=== PATIENT | female | born 1995 | race Caucasian/White ===

== ENCOUNTER → 2018-05-31 16:12 | Outpatient (CLI) | payer BC, SELFPAY ==
[2018-05-31 19:57] LABS: Chlamydia Trachomatis by PCR Negative (Negative); Neisserai gonorrhoeae by PCR Negative (Negative); Probe Check PASS; Sample Adequacy Control PASS; Specimen Processing Control PASS
== END ==
PROVIDERS: Visit Provider Obstetrics & Gynecology
DX: Z12.4 Encounter for screening for malignant neoplasm of cervix (principal); Z11.3 Encounter for screening for infections with a predominantly sexual mode of transmission
CPT/HCPCS: 87491; 87591; 88175; G0145

== ENCOUNTER → 2018-06-21 16:01 | Outpatient (CLI) | payer BC, SELFPAY ==
[2018-06-21 16:56] LABS: Color, Urine Yellow (Yellow); Glucose, Dipstick Normal (Normal); Ketone-Dipstick 5 mg/dl (Negative); Leukocyte Esterase-Dipstick Negative /ul (Negative); Nitrite-Dipstick Negative (Negative); Occult Blood-Urine Negative /ul (Negative); Protein-Dipstick Negative (Negative); Urine Bilirubin Dipstick Negative (Negative); Urine Clarity Clear (Clear); Urine Urobilinogen Normal (Normal)
[2018-06-21 17:07] LABS: Absolute Lymphocyte Count 2.09 X10^3/ul (0.83-4.51); Absolute Neutrophil Count 3.9 X10^3/uL (2.0-7.7); Basophil# 0.01 X10^3/uL; Basophil% 0.1 % (0-1); Eosinophil# 0.15 X10^3/uL; Eosinophils% 2.1 % (0-5); Hematocrit 40.2 % (37-47); Lymphocyte # 2.09 X10^3/ul (4.0); Lymphocyte % 29.9 % (19-41); Mean Corp Hgb Conc 32.3 g/gl (32-36); Mean Corpuscular Hgb 28.6 pg (27.0-32.0); Mean Corpuscular Volume 88.4 fL (81-99); Mean Platelet Vol. 10.3 fl (6.2-12.0); Monocyte# 0.78 X10^3/uL; Monocyte% 11.2 % (0-10); Neutrophil # 3.94 X10^3/uL (2.7-7.7); Neutrophil % 56.6 % (47-70); Platelet Count 341 K/mm3 (150-450); RBC Distribution Width CV 13.7 % (11.6-14.6); Red Blood Count 4.55 M/mm3 (4.2-5.4)
[2018-06-21 17:09] LABS: POSITIVE COUNT NO; POSITIVE DIFFERENTIAL NO; POSITIVE MORPHOLOGY NO
[2018-06-21 17:33] LABS: Amphetamine Urine VISTA NEGATIVE (<1000 ng/mL); Barbiturate Urine VISTA NEGATIVE (< 200 ng/mL); Benzodiazepine Urine VISTA NEGATIVE (< 200 ng/mL); Cocaine Urine VISTA NEGATIVE (< 300 ng/mL); Ecstacy Urine VISTA NEGATIVE (< 500 ng/mL); Methadone Urine VISTA NEGATIVE (< 300 ng/mL); PCP Urine VISTA NEGATIVE (< 25 ng/mL); THC Urine VISTA NEGATIVE (< 50 ng/mL); Thyroid Stim Hormone (TSH) 1.31 uIU/mL (0.358-3.74); Vista UDS pH Range 7
[2018-06-21 17:44] LABS: COTININE Drug Screen Negative (<200 ng/mL)
[2018-06-21 18:11] LABS: HIV - WCH Non-Reactive (Nonreactive); Rubella IgG 79.3 IU/mL
[2018-06-23 11:30] LABS: HEPATITIS B SURFACE AG Negative (Negative); Hep C Antibodies 0.1 s/co ratio (0.0-0.9)
[2018-06-25 03:58] LABS: Prenatal RPR NONREACTIVE (NONREACTIVE)
== END ==
PROVIDERS: Visit Provider Obstetrics & Gynecology
DX: Z34.81 Encounter for supervision of other normal pregnancy, first trimester (principal)
CPT/HCPCS: 36415; 80307; 81002; 84443; 85025; 86703; 86762; 86803; 87340

== ENCOUNTER 2018-07-31 17:00 | Emergency (ER) | payer BC, SELFPAY ==
[2018-07-31 17:02] VITALS: BP 144/93; PULSE 97; RESP 20; TEMP 36.6; O2SAT 99; BMI 45.3
[2018-07-31] MEDS: Ondansetron 4 MG/2 ML Vial IV (18:29)
[2018-07-31] MEDS: 0.9% Normal Saline 1,000 ML 1000 ML IV (18:29)
[2018-07-31 18:39] LABS: Absolute Lymphocyte Count 2.34 X10^3/ul (0.83-4.51); Absolute Neutrophil Count 7.6 X10^3/uL (2.0-7.7); Basophil# 0.01 X10^3/uL; Basophil% 0.1 % (0-1); Eosinophil# 0.28 X10^3/uL; Eosinophils% 2.5 % (0-5); Hematocrit 36.7 % (37-47); Hemoglobin 12.4 g/dl (12.0-15.0); Lymphocyte # 2.34 X10^3/ul (4.0); Lymphocyte % 20.7 % (19-41); Mean Corp Hgb Conc 33.8 g/gl (32-36); Mean Corpuscular Hgb 29.3 pg (27.0-32.0); Mean Corpuscular Volume 86.8 fL (81-99); Mean Platelet Vol. 9.8 fl (6.2-12.0); Monocyte# 1.08 X10^3/uL; Monocyte% 9.6 % (0-10); Neutrophil # 7.57 X10^3/uL (2.7-7.7); Neutrophil % 66.9 % (47-70); POSITIVE COUNT NO; POSITIVE DIFFERENTIAL NO; POSITIVE MORPHOLOGY NO; Platelet Count 289 K/mm3 (150-450); RBC Distribution Width CV 13.4 % (11.6-14.6); RBC Distribution Width SD 42.5 fl (35.1-43.9); Red Blood Count 4.23 M/mm3 (4.2-5.4); White Blood Count 11.3 K/mm3 (4.4-11.0)
[2018-07-31 19:01] LABS: Mucous, Urine 0 SEEN /hpf (<or=2+)
[2018-07-31 19:03] LABS: Anion Gap 10 (5-15); BUN 3 mg/dL (7-18); BUN/Creat Ratio 8.8 RATIO (10-20); Calcium,Total 8.7 mg/dL (8.5-10.1); Chloride 106 mmol/L (98-107); Creatinine, Serum 0.34 mg/dL (0.55-1.02); EST Glomerular Filtration Rate 250 mL/min (>60); Est Glom Filt Rate - Afr Amer 303 mL/min (>60); Estimated Creatinine Clearance 240.91 ml/min; Glucose 75 mg/dL (74-106); Lactic Acid 0.9 mmol/L (0.4-2.0); Potassium 4.2 mmol/L (3.5-5.1); Sodium Level 136 mmol/L (136-145)
[2018-07-31 19:07] LABS: Color, Urine Yellow (Yellow); Glucose, Dipstick Normal (Normal); Leukocyte Esterase-Dipstick 25 /ul (Negative); Nitrite-Dipstick Negative (Negative); Occult Blood-Urine 25 /ul (Negative); Protein-Dipstick Negative (Negative); Urine Bilirubin Dipstick Negative (Negative); Urine Clarity Clear (Clear); Urine Urobilinogen Normal (Normal)
[2018-07-31 19:09] LABS: Ketone-Dipstick 150 mg/dl (Negative)
--- NOTE | 2018-07-31 19:10 | RAD_ITS ---
STUDY: X-RAY CHEST REASON FOR EXAM: Female, 22 years old. Shortness of breath, cough, fever. Patient 3 months , waist shielding was utilized TECHNIQUE: Frontal and lateral views of the chest. COMPARISON: None. FINDINGS: The lungs are clear and expanded. There is no demonstrated pleural abnormality. Normal size heart. Normal mediastinum and keyanna. Normal visualized pulmonary arteries. Normal visualized aortic arch and descending thoracic aorta. Normal visualized thoracic spine. Normal visualized ribs, clavicles, and shoulders. There is no demonstrated abnormality of the visualized soft tissue structures of the upper abdomen. RAD/Chest PA and Lateral IMPRESSION: Normal x-ray examination of the chest. Electronically Signed: Colin Mittal MD at 19:29 EDT , Service support ,
[2018-07-31 19:12] LABS: Bacteria 1+ /hpf (None Seen); Red Blood Cells-Urine 0-5 SEEN /hpf (0-5); Squamous Epithelial Cells - UA 5-10 SEEN /hpf (5-10); White Blood Cells 0-5 SEEN /hpf (0-5)
[2018-07-31 19:44] VITALS: BP 145/83; PULSE 93; RESP 17; O2SAT 100
--- NOTE | 2018-07-31 19:44 | ED.VISSUMM ---
- ER Visit Summary Date of Service: 07/31/18 Chief Complaint: Cough History of Present Illness: The patient is a [address] Day and Dr. Chapman. She is a at 13 weeks 5 days of . She reports she has a cough began 3 days ago. States is been productive yellow sputum without blood. She has nasal congestion and drainage that she reports is bloody. She states that she has right ear pain off and on that is 2 out of 10 in severity. She reports that she has shortness of breath that is moderate in severity. She reports she is been using her inhaler and nebulizer with transient relief. States that she has been nausea and vomited 6 times today. No blood or emesis. She does complain of dysuria that began today. She states that she has a headache that is 5 out of 10 severity. She complains of generalized weakness. States she had a hot fever of 102 degrees and chills at home. Patient denies any vaginal bleeding or discharge. Physical Examination: Vitals: Stable. Afebrile. General: Well-nourished and well-developed. Head: Normocephalic atraumatic. HEENT: Serous effusion on right. No evidence of otitis media. She has nasal congestion and drainage. Neck: Supple, no lymphadenopathy. No JVD. Nontender. Cardiovascular: Regular rate and rhythm. No murmurs. Respiratory: No respiratory distress. Clear to auscultation bilaterally. Abdominal: Soft, nontender, nondistended, normal bowel sounds. No guarding, rebound, or peritoneal signs. Gravid uterus. Back: Nontender. Extremities: Nontender, no edema. Skin: Normal color, no rash. Neurologic: Alert and oriented ?3. Cranial nerves II through XII are intact. Normal strength and sensation. Psych: Normal affect. Test Results: Chest x-ray is normal. CBC is more for white count 11.3 hematocrit 36.7. Chem-7 is more for CO2 of 20 and creatinine 0.34. UA shows 5-10 epithelial cells, but 1+ bacteria. Influenza is negative. Chest x-ray is normal. Lactic acid is 0.9. Emergency Department Course and Treatment: Patient was given a liter of normal saline. She was given Zofran IV. She is resting comfortably. We were unable to obtain heart tones. However, she reports that Dr. Chapman was not able to do this in the office either. Treatment Plan: Patient was discussed with Dr. Debra Pringle. She will be discharged on Keflex for her urine and a culture was sent. Rather than have systemic steroid she asked that she be placed on a steroid inhaler. Follow-up with her primary care physician in Dr. Chapman this week for further evaluation. Return to the emergency department for any worsening symptoms. Disposition: To home in improved and stable condition. Impression: 1. URI. 2. Bacteriuria. 3. Second trimester . This note was generated with [employer] software. It may contain incorrect words, spelling, and punctuation that were not noted in review of the chart prior to signing ED Disposition - Plan for ED Patient: Disposition: Home or Assisted Living Chief Complaint: Shortness of Breath Instructions: ED Bronchitis Asthmatic Prescriptions: Ondansetron [Zofran Odt] 4 mg PO Q8H PRN PRN #10 tab PRN Reason: Nausea Cephalexin [Keflex] 500 mg PO Q12 #14 capsule Budesonide Inhaler 180 mcg [Pulmicort Inhaler 180 mcg] 1 puff INHALATION BID #1 inhaler Referrals: Marya Day MD [Primary Care Provider] - 3-5 Days if not improving Miguelangel Chapman MD [STAFF PHYSICIAN] - Keep Chari appointment
[2018-07-31] MEDS: Cephalexin 500 MG Capsule PO (19:56)
--- NOTE | 2018-07-31 20:00 | ED.RN ---
IV DC'ED, CATHETER INTACT, SMALL GAUZE DRESSING PLACED. DISCHARGE INSTRUCTIONS GIVEN TO AND REVIEWED WITH PATIENT, PATIENT DENIES QUESTIONS OR CONCERNS AND VOICES UNDERSTANDING OF DISCHARGE INSTRUCTIONS. PT AMBULATES OUT OF ROOM WITHOUT DIFFICULTY.
--- NOTE | 2018-08-03 10:59 | CM.ED ---
ED CALLBACK: Follow-up call placed to patient with no answer. Voicemail states mailbox is full and cannot accept messages. Will reattempt as time allows.
== END 2018-07-31 20:01 | disposition home or self-care (01) ==
PROVIDERS: Emergency Provider Emergency Medicine; PCP Internal Medicine
DX: O99.511 Diseases of the respiratory system complicating pregnancy, first trimester (principal); J06.9 Acute upper respiratory infection, unspecified; O23.41 Unspecified infection of urinary tract in pregnancy, first trimester; B96.89 Other specified bacterial agents as the cause of diseases classified elsewhere; O10.911 Unspecified pre-existing hypertension complicating pregnancy, first trimester; Z3A.13 13 weeks gestation of pregnancy; Z87.891 Personal history of nicotine dependence
CPT/HCPCS: 71046; 80048; 81001; 83605; 85025; 87086; 87088; 87804; 96361; 96374; 99285; J7030; A4216; J2405

== ENCOUNTER 2018-09-20 12:29 | Outpatient (CLI) | payer BC, SELFPAY ==
[2018-09-20 12:55] VITALS: BMI 46.0
--- NOTE | 2018-10-01 07:40 | OB.TRI.NOTE ---
History of Present Illness Reason For Visit: OBSERVE AFTER A FALL Date of Service: 09/20/18 Final SUNITHA: 01/31/19 Final SUNITHA Source: US <20 weeks Gestational age: 21 Weeks and 0 Days History of Present Illness: 21-week intrauterine presents after falling on her buttocks. Denies any bleeding. Good movement noted. Maternal blood type is Rh+. Allergies metronidazole [From Flagyl] Allergy (Verified 07/31/18 17:02) Rash NST - FHR Rate Baby A NST Reactive:: Appropriate for gestational age Uterine Activity:: No contractions noted. Impression/Plan 21+ week intrauterine with fall. Good heart tones noted. Recommended Tylenol for discomfort at home. Routine follow-up recommended.
== END 2018-09-20 14:20 | disposition home or self-care (01) ==
LOC: WPOUT 12:30 → WP 12:31
PROVIDERS: Family Provider Internal Medicine; PCP Internal Medicine; Referring Provider Obstetrics & Gynecology; Visit Provider Obstetrics & Gynecology
DX: Z34.92 Encounter for supervision of normal pregnancy, unspecified, second trimester (principal)
CPT/HCPCS: 59025; 59050; 99218; G0378

== ENCOUNTER → 2018-09-27 18:47 | Outpatient (CLI) | payer BC, SELFPAY ==
[2018-09-20 12:55] VITALS: BMI 46.0
--- OUTSIDE RECORDS SUMMARY | 2018-11-09 16:52 | XMS RPT_ITS ---
:1995 Author Organization [place] Support Name Relationship Address Phone RONNA LEONE Unavailable [address] + [place] [address] COLTON, JUAN Unavailable [address] + [place] [address] S Unavailable Unavailable Unavailable RONNA LEONE Unavailable [address] + [place] [address] COLTON, JUAN Unavailable [address] + [place] [address] S Unavailable Unavailable Unavailable RONNA LEONE Unavailable [address] + [place], [place] [phone] RONNA LEONE Unavailable [address] Unavailable [place], [place] [phone] NOT GIVEN Unavailable Unavailable Unavailable RONNA LEONE Unavailable [address] + [place], [place] [phone] RONNA LEONE Unavailable [address] Unavailable [place], [place] [phone] NOT GIVEN Unavailable Unavailable Unavailable RONNA LEONE Unavailable [address] + [place] [address] COLTON, JUAN Unavailable [address] + [place] [address] S Unavailable Unavailable Unavailable RONNA LEONE Unavailable [address] + [place], [place] [phone] RONNA LEONE Unavailable [address] Unavailable [place], [place] [phone] NOT GIVEN Unavailable Unavailable Unavailable RONNA LEONE Unavailable [address] + [place] [address] COLTON, JUAN Unavailable [address] + [place] [address] S Unavailable Unavailable Unavailable RONNA LEONE Unavailable [address] + [place] [address] JUAN SEGURA Unavailable [address] + [place] [address] S Unavailable Unavailable Unavailable RONNA LEONE Unavailable [address] + [place], [place] [phone] RONNA LEONE Unavailable [address] Unavailable [place], [place] [phone] NOT GIVEN Unavailable Unavailable Unavailable RONNA LEONE Unavailable [address] + [place], [place] [phone] RONNA LEONE Unavailable [address] Unavailable [place] [phone] NOT GIVEN Unavailable Unavailable Unavailable RONNA LEONE Unavailable [address] + [place], [place] [phone] RONNA LEONE Unavailable [address] Unavailable [place], [place] [phone] NOT GIVEN Unavailable Unavailable Unavailable RONNA LEONE Unavailable [address] + [place], [place] [phone] RONNA LEONE Unavailable [address] Unavailable [place], [place] [phone] NOT GIVEN Unavailable Unavailable Unavailable RONNA LEONE Unavailable [address] + [place], [place] [phone] RONNA LEONE Unavailable [address] Unavailable [place] [phone] NOT GIVEN Unavailable Unavailable Unavailable RONNA LEONE Unavailable [address] + [place], [place] [phone] RONNA LEONE Unavailable [address] Unavailable [place] [phone] NOT GIVEN Unavailable Unavailable Unavailable RONNA LEONE Unavailable [address] + [place], [place] [phone] RONNA LEONE Unavailable [address] Unavailable [place] [phone] NOT GIVEN Unavailable Unavailable Unavailable RONNA LEONE Unavailable [address] + [place], [place] [phone] RONNA LEONE Unavailable [address] Unavailable [place] [phone] NOT GIVEN Unavailable Unavailable Unavailable LEONE, RONNA Unavailable [address] + [place], [place] [phone] EDER LEONEREY Unavailable [address] Unavailable [place], [place] [phone] NOT GIVEN Unavailable Unavailable Unavailable NOT GIVEN Unavailable Unavailable Unavailable SULEMA RONNA Unavailable [address] + [place], [place] [phone] SULEMA RONNA Unavailable [address] Unavailable [place], [place] [phone] NOT GIVEN Unavailable Unavailable Unavailable LEONE, RONNA Unavailable [address] + [place], [place] [phone] LEONE, RONNA Unavailable [address] Unavailable [place], [place] [phone] NOT GIVEN Unavailable Unavailable Unavailable Care Team Providers Name Role Phone ASHLEY HOPKINS (CHARLEEN) Attending Unavailable VIJAYA DAY Attending Unavailable VIJAYA DAY Referring Unavailable PALLAVI RUCKERPA) Attending Unavailable KIERA DAYA Hector Referring Unavailable KIERA DAYA Hector Attending Unavailable WEEMAN KATHERINE Admitting Unavailable WEEMANSASCHA M Attending Unavailable WEEMAN, KATHERINE Primary Care Unavailable WEEMAN, KATHERINE Consulting Unavailable PROVIDER, UNKNOWN Consulting Unavailable PROVIDER, UNKNOWN Consulting Unavailable PROVIDER, UNKNOWN Consulting Unavailable WEEMAN, KATHERINE Admitting Unavailable WEEMAN, KATHERINE Attending Unavailable WEEMAN, KATHERINE Primary Care Unavailable MYRTLE, ROD Consulting Unavailable PROVIDER, UNKNOWN Consulting Unavailable LAURIE ALEXIS Admitting Unavailable LAURIE ALEXIS Attending Unavailable LAURIE ALEXIS Primary Care Unavailable MYRTLE, ROD Consulting Unavailable PROVIDER, UNKNOWN Consulting Unavailable WEEMAN, KATHERINE Admitting Unavailable WEEMAN KATHERINE Attending Unavailable WEEMAN, KATHERINE Primary Care Unavailable MYRTLE, ROD Consulting Unavailable PROVIDER, UNKNOWN Consulting Unavailable WEEMAN, KATHERINE Admitting Unavailable WEEMAN, KATHERINE Attending Unavailable WEEMAN, KATHERINE Primary Care Unavailable MYRTLE, ROD Consulting Unavailable PROVIDER, UNKNOWN Consulting Unavailable ELVA BLAKE Admitting Unavailable ELVA BLAKE Attending Unavailable ELVA BLAKE Primary Care Unavailable MYRTLE, ROD Consulting Unavailable PROVIDER, UNKNOWN Consulting Unavailable WEEMAN, KATHERINE Admitting Unavailable WEEMAN, KATHERINE Attending Unavailable WEEMAN, KATHERINE Primary Care Unavailable MYRTLE, ROD Consulting Unavailable PROVIDER, UNKNOWN Consulting Unavailable TREASURE AIKEN Admitting Unavailable TREASURE AIKEN Attending Unavailable TREASURE AIKEN Primary Care Unavailable MYRTLE, ROD Consulting Unavailable PROVIDER, UNKNOWN Consulting Unavailable TREASURE AIKEN Admitting Unavailable TREASURE AIKEN Attending Unavailable TREASURE AIKEN Primary Care Unavailable MYRTLE, ROD Consulting Unavailable PROVIDER, UNKNOWN Consulting Unavailable TALAMPAS, VIJAYA Consulting Unavailable RUCKER, CLARITA Primary Care Unavailable RUCKER, CLARITA Attending Unavailable RUCKER, CLARITA Admitting Unavailable PROVIDER, UNKNOWN Consulting Unavailable WEEMAN, KATHERINE Admitting Unavailable WEEMANSASCHA Attending Unavailable WEEMAN, KATHERINE Primary Care Unavailable TALAMPAS, VIJAYA Consulting Unavailable PROVIDER, UNKNOWN Consulting Unavailable TALAMPAS, VIJAYA Referring Unavailable ARASH, SASCHA F Primary Care Unavailable ARASH, SASCHA F Attending Unavailable ARASH, SASCHA F Admitting Unavailable TALAMPAS, VIJAYA Consulting Unavailable PROVIDER, UNKNOWN Consulting Unavailable SRINI, DR ABHILASH Dee Admitting Unavailable SRINI, DR ABHILASH Dee Attending Unavailable TALAMPAS, VIJAYA Referring Unavailable SRINI, DR ABHILASH Dee Primary Care Unavailable TALAMPAS, VIJAYA Consulting Unavailable PROVIDER, UNKNOWN Consulting Unavailable FELICIA, DR RUBIO Yee Admitting Unavailable DUARTE, DR RUBIO Yee Attending Unavailable FELICIA, DR RUBIO Yee Primary Care Unavailable TALAMPAS, VIJAYA Consulting Unavailable PROVIDER, UNKNOWN Consulting Unavailable UPTAIN, CRYSTAL CNM Admitting Unavailable UPTAIN, CRYSTAL CNM Attending Unavailable UPTAIN, CRYSTAL CNM Primary Care Unavailable TALAMPAS, VIJAYA Consulting Unavailable PROVIDER, UNKNOWN Consulting Unavailable Sascha Velasquez Attending Unavailable Sascha Velasquez Referring Unavailable Sascha Velasquez Attending Unavailable Wilmar Ferro Attending Unavailable Sascha Velasquez Attending Unavailable Ron, Sascha Referring Unavailable Talampas, Vijaya Primary Care Unavailable Sascha Velasquez Attending Unavailable Talampas, Vijaya Primary Care Unavailable Sascha Velasquez Referring Unavailable PROBLEMS PROBLEMS DATE TYPE CONDITION / CODE ATTENDING STATUS SOURCE 09/28/2018 Unknown N39.0 - Urinary Sascha Velasquez Active [facility] tract infection, Community site not Hospital specified / Repository N39.0(ICD-10) 06/21/2018 Unknown Z34.81 - Sascha Velasquez Active [facility] Encounter for Community supervision of Hospital other normal Repository , first trimester / Z34.81(ICD-10) 06/03/2018 Unknown Z12.4 - Encounter Sascha Velasquez Active [facility] for screening for Community malignant Hospital neoplasm of Repository cervix / Z12.4(ICD-10) 12/25/2017 Active Unknown / TALAMPAS, [facility]AYA [facility] [place] [facility] 12/17/2017 Principle Other microscopic REUBEN, Active Srinivas Beltran Diagnosis hematuria / LAURIE PA [facility] R3129(ICD-10) Hospital Repository 11/26/2017 Admitting Irregular SASCHA VELASQUEZ Active Srinivas Beltran Diagnosis menstruation, [facility] unspecified / Hospital N926(ICD-10) Repository 11/26/2017 Principle Irregular SASCHA VELASQUEZ Active Srinivas Beltran Diagnosis menstruation, [facility] unspecified / Hospital N926(ICD-10) Repository PROCEDURES PROCEDURES No Procedure Records FoundRESULTS RESULTS EMERGENCY REPORT Observed: 08/08/2018 Status: F Source: SRINIVAS BELTRAN 9:36 AM [facility] EMERGENCY ROOM REPORT NAME ACCOUNT SEX AGE ADMIT DISCHARGE PT MED. RECORD# NUMBER DATE DATE TYPE SULEMA [id number] F 22 08/08/18 08/08/18 3 LUIS Moeller [id number] ROOM: ER DATE OF : 1995 DICTATING PHYSICIAN: Rubio Duarte CHIEF COMPLAINT: Constipation. HISTORY OF PRESENT ILLNESS: The patient states that she was recently treated for UTI with Keflex. She has missed a couple of doses, but basically has two more pills to take. She is doing generally well with that. She states that she has not had a bowel movement since Last Thursday. When asked if that was 3 days ago, or a week and a half, she states that it was a week and a half. She is not having any nausea or vomiting. She states she feels like she has to go but cannot. No appreciable abdominal pain. She is 15 weeks . She has had previous episodes of constipation and states that she has some powder at home to take for it, but was unsure whether she could take that as she does not know what it is. PAST MEDICAL HISTORY: Significant for hypertension. MEDICATIONS: Per med rec list. ALLERGIES: Flagyl. PAST SURGICAL HISTORY: No previous surgeries. SOCIAL HISTORY: She lives at home with significant other. She does work. She does not smoke or drink alcohol. PHYSICAL EXAMINATION: This is a 22-year-old heavy built, obese female who does not appear toxic or in any acute distress. Her skin is pink, warm and dry. VITAL SIGNS: All normal as noted in the chart. Abdomen is obese but soft. She has active bowel sound. No guarding or rebound. No masses. I did a rectal exam and external exam was unremarkable. I was unable to feel any stool in the rectum. Good peripheral pulses. Good capillary refill. EMERGENCY DEPARTMENT COURSE AND TREATMENT: The patient presents with history of not having a bowel movement for some time. No evidence of any obstructive findings or other emergent findings. I told her that she is okay to take the laxative powder that she has at home. I recommended a Dulcolax suppository to take as well, and milk of magnesia as needed. Follow up with her family doctor in 1 to 2 days if not better. Return if symptoms worsen. Page 1 of 2 LUIS LEONE Emergency Room Report DIAGNOSIS: Constipation. Dictated By: Rubio Duarte MD 08/08/18 10:07 JOB #: [id number] Transcribed By: toi 08/08/18 11:25 Electronically signed by: BRUCE Duarte M.D. 08/11/18 07:38 Page 2 of 2 LUIS LEONE Emergency Room Report EMERGENCY DEPARTMENT Observed: 08/01/2018 Status: F Source: [place] SUMMARY 1:[address] [facility] REPOSITORY [facility] Medical Records Department [address] [place] [address] Emergency Department Summary 07/31/18 1944 MR#: [id number] Acct: [id number] Name: LUIS LEONE Rep #: [id number] : 1995 22 From: Wilmar Ferro MD PCP: Vijaya Day MD Status: DEP ER - ER Visit Summary Date of Service: 07/31/18 Chief Complaint: Cough History of Present Illness: The patient is a [address] Day and Dr. Velasquez. She is a at 13 weeks 5 days of . She reports she has a cough began 3 days ago. States is been productive yellow sputum without blood. She has nasal congestion and drainage that she reports is bloody. She states that she has right ear pain off and on that is 2 out of 10 in severity. She reports that she has shortness of breath that is moderate in severity. She reports she is been using her inhaler and nebulizer with transient relief. States that she has been nausea and vomited 6 times today. No blood or emesis. She does complain of dysuria that began today. She states that she has a headache that is 5 out of 10 severity. She complains of generalized weakness. States she had a hot fever of 102 degrees and chills at home. Patient denies any vaginal bleeding or discharge. Physical Examination: Vitals: Stable. Afebrile. General: Well-nourished and well-developed. Head: Normocephalic atraumatic. HEENT: Serous effusion on right. No evidence of otitis media. She has nasal congestion and drainage. Neck: Supple, no lymphadenopathy. No JVD. Nontender. Cardiovascular: Regular rate and rhythm. No murmurs. Respiratory: No respiratory distress. Clear to auscultation bilaterally. Abdominal: Soft, nontender, nondistended, normal bowel sounds. No guarding, rebound, or peritoneal signs. Gravid uterus. Back: Nontender. Extremities: Nontender, no edema. Skin: Normal color, no rash. Neurologic: Alert and oriented 3. Cranial nerves II through XII are intact. Normal strength and sensation. Psych: Normal affect. Test Results: Chest x-ray is normal. CBC is more for white count 11.3 hematocrit 36.7. Chem-7 is more for CO2 of 20 and creatinine 0.34. UA shows 5-10 epithelial cells, but 1+ bacteria. Influenza is negative. Chest x-ray is normal. Lactic acid is 0.9. Emergency Department Course and Treatment: Patient was given a liter of normal saline. She was given Zofran IV. She is resting comfortably. We were unable to obtain heart tones. However, she reports that Dr. Velasquez was not able to do this in the office either. Treatment Plan: Patient was discussed with Dr. Debra Pringle. She will be discharged on Keflex for her urine and a culture was sent. Rather than have systemic steroid she asked that she be placed on a steroid inhaler. Follow-up with her primary care physician in Dr. Velasquez this week for further evaluation. Return to the emergency department for any worsening symptoms. Disposition: To home in improved and stable condition. Impression: 1. URI. 2. Bacteriuria. 3. Second trimester . This note was generated with [employer] software. It may contain incorrect words, spelling, and punctuation that were not noted in review of the chart prior to signing ED Disposition - Plan for ED Patient: Disposition: Home or Assisted Living Chief Complaint: Shortness of Breath Instructions: ED Bronchitis Asthmatic Prescriptions: Ondansetron [Zofran Odt] 4 mg PO Q8H PRN PRN #10 tab PRN Reason: Nausea Cephalexin [Keflex] 500 mg PO Q12 #14 capsule Budesonide Inhaler 180 mcg [Pulmicort Inhaler 180 mcg] 1 puff INHALATION BID #1 inhaler Referrals: Vijaya Day MD [Primary Care Provider] - 3-5 Days if not improving Sascha Velasquez MD [STAFF PHYSICIAN] - Keep Chari appointment What to do if you have Problems For any increased pain, shortness of breath, bleeding, nausea or vomiting, chest pain, or any unexpected problems, contact your Primary Care Provider. Call [facility] ([phone]) or report to the closest Emergency Room. Call 911 if necessary. 08/01/18 0157 <Electronically signed by Wilmar Ferro MD> Date Wilmar Ferro MD Cosigner Signature (If Indicated): Date CC: Vijaya Day MD URINALYSIS, COMPLETE Collected: 07/31/2018 Status: F Source: [place] 6:[address] [facility] REPOSITORY Order Comment: How was Urine Obtained? CLEAN CATCH TYPE CODE TESTS RESULT OUT OF RANGE REFERENCE UNITS LAB L400.3000 Yellow COLOR Normal Yellow LAB L400.3050 Clear Normal CLARITY Clear LAB L400.3200 Normal mg/dl Normal GLUCOSE, UR Normal LAB L400.3300 Negative mg/dL Normal BILIRUBIN URINE Negative LAB L400.3400 Negative mg/dl High KETONE UR 150 Result Comment: CRITICAL VALUE *H VERIFIED. CALLED TO GRISELDA 07/31/18 1908 Zaria Amaral. RESULTS READ BACK BY GRISELDA . LAB L400.3465 1.002-1.030 Normal SP.GR. DIPSTX 1.020 LAB L400.3550 5.0 - 8.0 pH Normal UR 6.0 LAB L400.3600 Negative mg/dl Normal PROT DIPSTX Negative LAB L400.3700 Normal mg/dl Normal UROBILI Normal LAB L400.3750 Negative Normal NITRITE UR Negative LAB L400.3780 Negative /ul High 25 OCCULT BLOOD-UR LAB L400.3800 Negative /ul High 25 LEUK ESTERASE LAB L400.4050 0-5 /hpf Normal WBC 0-5 SEEN LAB L400.4100 0-5 /hpf Normal RBC-UA 0-5 SEEN LAB L400.4150 5-10 /hpf Normal SQUAM EPI 5-10 SEEN LAB L400.4300 None Seen /hpf 1+ Normal BACTERIA LAB L400.4350 <or=2+ /hpf 0 Normal MUCUS, URINE SEEN Performed By: #### L400.0001 #### [facility] [address] [place], [place], [address] Observed: 07/31/2018 Status: F Source: [place] CULTURE, URINE 6:[address] [facility] REPOSITORY Order Date: 07/31/18 Urine Culture ORGANISM 1: Mixed Gram Positive Organisms [place] Count 25,000-50,000 MIX CULTURE Mixed contaminants. Submit a new specimen if indicated. Performed By: #### M100.0650 #### [facility] [address] [place], [address] CBC W/DIFF, AUTOMATED Collected: 07/31/2018 Status: F Source: [place] 6:[address] [facility] REPOSITORY TYPE CODE TESTS RESULT OUT OF RANGE REFERENCE UNITS LAB L100.1000 4.4-11.0 K/mm3 High WBC 11.3 LAB L100.1200 4.2-5.4 M/mm3 Normal RBC 4.23 LAB L100.1300 12.0-15.0 g/dl Normal HGB 12.4 LAB L100.1400 37-47 % Low HCT 36.7 LAB L100.1500 81-99 fL Normal MCV 86.8 LAB L100.1600 27.0-32.0 pg Normal MCH 29.3 LAB L100.1700 32-36 g/gl Normal MCHC 33.8 LAB L100.1810 11.6-14.6 % Normal RDW CV 13.4 LAB L100.1820 35.1-43.9 fl Normal RDW SD 42.5 LAB L100.1900 150-450 K/mm3 Normal PLT 289 LAB L100.2000 6.2-12.0 fl Normal MPV 9.8 LAB L100.2100 47-70 % Normal NEUT% 66.9 LAB L100.2200 19-41 % Normal LY% 20.7 LAB L100.2300 0-10 % Normal MONO% 9.6 LAB L100.2400 0-5 % Normal EO% 2.5 LAB L100.2500 0-1 % Normal BASO% 0.1 LAB L100.2550 0.0-0.9 % Normal IM GRAN % 0.200 Result Comment: IG% - Immature Granulocytes (promyelocytes, myelocytes and metamyelocytes) > 1% indicates that a LEFT SHIFT is Present. LAB L100.2620 2.0-7.7 X10 3/uL Normal Absolute Neut 7.6 LAB L100.2720 0.83-4.51 X10 3/ul Normal Absolute Lymph 2.34 Performed By: #### L100.0100 #### [facility] [address] [place], [address] BASIC METABOLIC Collected: 07/31/2018 Status: F Source: [place] PROFILE ([facility]) 6:[address] [facility] REPOSITORY TYPE CODE TESTS RESULT OUT OF RANGE REFERENCE UNITS LAB L501.0100 74-106 mg/dL Normal GLU 75 Result Comment: Please note revised GLUCOSE reference range effective 2017. LAB L501.1000 7-18 mg/dL Low BUN 3 LAB L501.1100 0.55-1.02 mg/dL Low CREAT,SERUM 0.34 Result Comment: The validity of the calculated GFR AND GFRAA in patients over 70 years has not been determined. Clinical correlation is essential. LAB L501.1110 >60 mL/min Normal EST GFR 250 Result Comment: Non- GFR Calc LAB L501.1115 >60 mL/min Normal EST GFR - AA 303 Result Comment: GFR Calc LAB L501.1255 ml/min Normal Estimated CRCL 240.91 LAB L501.1300 10-20 RATIO Low BUN/CRE 8.8 LAB L501.2200 8.5-10 mg/dL .1 CA Normal 8.7 LAB L501.5300 136-14 mmol/L 5 NA Normal 136 LAB L501.5600 3.5-5. mmol/L 1 K Normal 4.2 Result Comment: Moderate Hemolysis, Result may be falsely increased. LAB L501.5900 98-107 mmol/L Normal CL 106 LAB L501.6100 21.0-32.0 mmol/L Low CO2 20.0 LAB L501.6200 5-15 Normal GAP 10 Performed By: #### L500.2500 #### [facility] [address] [place], [address] LACTIC ACID Collected: 07/31/2018 Status: F Source: [place] 6:[address] [facility] REPOSITORY Order Comment: Yes/No query for Sepsis Lactate Rule Y TYPE CODE TESTS RESULT OUT OF RANGE REFERENCE UNITS LAB L503.6005 0.4-2.0 mmol/L Normal LACTIC ACID 0.9 Performed By: #### L503.6005 #### [facility] [address] [place], [address] Observed: 07/31/2018 Status: F Source: [place] INFLUENZA A+B (RAPID 5:[address] [facility]) REPOSITORY FLU A/B Rapid Negative test results should be confirmed by culture. Order Rapid Viral Culture for Influenzae A+B ([id number]) if clinically indicated. Influenza Ag, Direct Presumptive NEGATIVE for Influenza A/B Antigen (See Note) Performed By: #### M101.0101 #### [facility] [place], [address] CHEST PA AND LATERAL Observed: 07/31/2018 Status: F Source: [place] 5:[address] [facility] REPOSITORY [facility] Imaging Services [address] [place] [address] Chest PA and Lateral MR#: [id number] Acct: [id number] Name: LUIS LEONE Rep #: [id number] : 1995 F 22 From: Colin Mittal MD PCP: Vijaya Day MD Status: REG ER Study: Chest PA and Lateral Date of Exam: 07/31/18 Exam# [id number] Ordering Dr: Wilmar Ferro MD STUDY: X-RAY CHEST REASON FOR EXAM: Female, 22 years old. Shortness of breath, cough, fever. Patient 3 months , waist shielding was utilized TECHNIQUE: Frontal and lateral views of the chest. COMPARISON: None. FINDINGS: The lungs are clear and expanded. There is no demonstrated pleural abnormality. Normal size heart. Normal mediastinum and keyanna. Normal visualized pulmonary arteries. Normal visualized aortic arch and descending thoracic aorta. Normal visualized thoracic spine. Normal visualized ribs, clavicles, and shoulders. There is no demonstrated abnormality of the visualized soft tissue structures of the upper abdomen. RAD/Chest PA and Lateral IMPRESSION: Normal x-ray examination of the chest. Electronically Signed: Colin Mittal MD at 19:29 EDT , Service support , CC: Vijaya Day MD; Wilmar Ferro MD Precipitator: Signed GROUP A STREP BY Collected: 07/30/2018 Status: F Source: [facility] 11:52 PM [facility] REPOSITORY TYPE CODE TESTS RESULT OUT OF REFERENCE UNITS RANGE LAB GASSRC Throat Swab GAS Specimen Source LAB PCRGAS Negative for Group A Strep Group A PCR Streptococcus by PCR. Result Comment: This test was developed and its performance characteristics determined by [facility] [place] [facility] It has not been cleared or approved by the FDA. -[facility] is regulated under CLIA as qualified to perform high-complexity testing. This test is used for clinical purposes. It should not be regarded as inv estigational or for research. Performed By: #### GASPCR #### [facility] [address] [place], [place] [address] PROGRESS Observed: 07/30/2018 Status: COMPLETED Source: [place] 2:14 PM [facility] REPOSITORY O ID: [id number] Author: Ashley Hopkins Service: (none) Author Type: Nurse Practitioner Type: Progress Notes Filed: 07/30/2018 3:49 PM Note Text: This is a 22 year old female who presents today with: Patient presents with: Head Congestion: X 4 days HISTORY OF PRESENT ILLNESS: Luis Leone is a 22 year old female. Patient presents with: Head Congestion: X 4 days Pt presents today with complaint of URI symptoms. Started about 4 days ago. Refers that she is 3 months . -- refers she'll be 14 weeks on Thursday. Refers that she is using robitussin, cough drops, and a humidifier. Took some tylenol this morning -- refers temperature was 102. States she hasn't had a fever since. Refers that she also vomited twice. Refers that she ate lunch yesterday, and vomited that up. Refers that she ate supper last night, and vomited that up. Refers that she hasn't been able to eat anything today. Describes this vomiting as post-tussive in nature. Refers that she has been drinking water and hot tea to help open up the sinuses. PAST MEDICAL HISTORY: PAST MEDICAL HISTORY Diagnosis Date - Asthma - HTN (hypertension) - Hyperlipidemia - Kidney stones PAST SURGICAL HISTORY Procedure Laterality Date - PAST SURGICAL HISTORY OF kidney stones 2013 ALLERGIES Flagyl [Metronidazole Hcl] MEDICATIONS Current Outpatient Prescriptions: cetirizine (ZYRTEC) 10 mg tablet Take 1 tablet by mouth once daily. ipratropium (ATROVENT) 0.02 % nebulizer solution Use 2.5 mL via nebulizer four times daily as needed for Wheezing/Shortness of Breath. Use over 5-15minutes. beclomethasone (QVAR) 80 mcg/actuation inhaler Inhale 1 Puff as instructed twice daily. ranitidine (ZANTAC) 150 mg tablet Take 1 tablet by mouth twice daily. PROAIR HFA 90 mcg/actuation inhaler No current facility-administered medications for this visit. FAMILY HISTORY Problem Relation Age of Onset - other (htn) Mother - Hyperlipidemia Father - Heart Father - other (stents) Father - other (htn) Father - Diabetes Paternal Grandmother Social History Marital status: Spouse name: Years of education: Number of children: Social History Main Topics Smoking status: Former Smoker Packs/day: 0.00 Years: 4.00 Types: Cigarettes Quit date: 05/26/2018 Smokeless tobacco: Never Used Alcohol use: No Comment: socially Drug use: No EXAM: BP 126/80 (BP Site: Left Arm, BP Position: Sitting, BP Cuff Size: Large Adult) Pulse 103 Temp 36.3 ?C (97.4 ?F) (Left Tympanic) Resp 14 Wt 127.9 kg (282 lb) LMP 12/04/2017 SpO2 97% BMI 45.52 kg/m? PHYSICAL EXAM: General Appearance: Well appearing, alert, in no acute distress, well-hydrated, well nourished.. Skin: Skin color, texture, turgor normal, no suspicious rashes or lesions. Head: Normocephalic, no masses, lesions, tenderness or abnormalities. Eyes: Anicteric sclera. Pupils are equally round and reactive to light. Extraocular movements are intact. . Ears: External ears normal, canals clear, Normal TMs bilaterally. Nose/Sinuses: Nares normal, septum midline, mucosa normal, no drainage or sinus tenderness. Oropharynx: Lips, mucosa, and tongue normal, teeth and gums normal, oropharynx normal. Neck: Supple, no adenopathy Lungs: Lungs clear to auscultation. No wheezing, rhonchi, rales. Heart: RRR without murmur, gallop, or rubs. No ectopy. Neurologic: Gait normal. ASSESSMENT/PLAN: 1. URI, acute - ICD9: 465.9, ICD10: J06.9 (primary diagnosis) - Discussed viral etiology and rationale for treatment. - Symptomatic treatment with prn analgesia - Supportive care with fluids and rest - The patient may also use mucinex, sudafed, or robitussin -- handout given with safe medications in . 2. Acute pharyngitis, unspecified etiology - ICD9: 462, ICD10: J02.9 - suspect viral - Discussed supportive care treatment with fluids, rest and analgesia. - The patient may also use mucinex, sudafed, or robitussin -- handout given with safe medications in . - RAPID STREP TEST B/O - GROUP A STREPTOCOCCUS BY PCR Discussed treatment plan and patient voices understanding. Patient's questions answered appropriately. Medications and potential side effects were discussed and patient voices understanding. Return to the office as scheduled or as needed for worsening/no improvement. Ashley Hopkins APRN.CNP CNOV Observed: 07/30/2018 Status: COMPLETED Source: [place] 2:00 PM [facility] REPOSITORY Office Visit (FAMPWS) LUIS LEONE ([id number]) 1995 F Date Time Provider Department 07/30/18 2:00 PM ASHLEY HOPKINS (CHARLEEN) FAMPWS During your visit today, we recorded the following information about you: Temperature Pulse Respiration Blood pressure 97.4 degrees 103/minute 14/minute 126/80 Weight 127.9 kg Ashley Hopkins APRN.CNP 07/30/2018 3:49 PM Signed This is a 22 year old female who presents today with: Patient presents with: Head Congestion: X 4 days HISTORY OF PRESENT ILLNESS: Luis Moeller Leone is a 22 year old female. Patient presents with: Head Congestion: X 4 days Pt presents today with complaint of URI symptoms. Started about 4 days ago. Refers that she is 3 months . -- refers she'll be 14 weeks on Thursday. Refers that she is using robitussin, cough drops, and a humidifier. Took some tylenol this morning -- refers temperature was 102. States she hasn't had a fever since. Refers that she also vomited twice. Refers that she ate lunch yesterday, and vomited that up. Refers that she ate supper last night, and vomited that up. Refers that she hasn't been able to eat anything today. Describes this vomiting as post-tussive in nature. Refers that she has been drinking water and hot tea to help open up the sinuses. PAST MEDICAL HISTORY: PAST MEDICAL HISTORY Diagnosis Date - Asthma - HTN (hypertension) - Hyperlipidemia - Kidney stones PAST SURGICAL HISTORY Procedure Laterality Date - PAST SURGICAL HISTORY OF kidney stones 2013 ALLERGIES Flagyl [Metronidazole Hcl] MEDICATIONS Current Outpatient Prescriptions: cetirizine (ZYRTEC) 10 mg tablet Take 1 tablet by mouth once daily. ipratropium (ATROVENT) 0.02 % nebulizer solution Use 2.5 mL via nebulizer four times daily as needed for Wheezing/Shortness of Breath. Use over 5-15minutes. beclomethasone (QVAR) 80 mcg/actuation inhaler Inhale 1 Puff as instructed twice daily. ranitidine (ZANTAC) 150 mg tablet Take 1 tablet by mouth twice daily. PROAIR HFA 90 mcg/actuation inhaler No current facility-administered medications for this visit. FAMILY HISTORY Problem Relation Age of Onset - other (htn) Mother - Hyperlipidemia Father - Heart Father - other (stents) Father - other (htn) Father - Diabetes Paternal Grandmother Social History Marital status: Spouse name: Years of education: Number of children: Social History Main Topics Smoking status: Former Smoker Packs/day: 0.00 Years: 4.00 Types: Cigarettes Quit date: 05/26/2018 Smokeless tobacco: Never Used Alcohol use: No Comment: socially Drug use: No EXAM: BP 126/80 (BP Site: Left Arm, BP Position: Sitting, BP Cuff Size: Large Adult) Pulse 103 Temp 36.3 ?C (97.4 ?F) (Left Tympanic) Resp 14 Wt 127.9 kg (282 lb) LMP 12/04/2017 SpO2 97% BMI 45.52 kg/m? PHYSICAL EXAM: General Appearance: Well appearing, alert, in no acute distress, well-hydrated, well nourished.. Skin: Skin color, texture, turgor normal, no suspicious rashes or lesions. Head: Normocephalic, no masses, lesions, tenderness or abnormalities. Eyes: Anicteric sclera. Pupils are equally round and reactive to light. Extraocular movements are intact. . Ears: External ears normal, canals clear, Normal TMs bilaterally. Nose/Sinuses: Nares normal, septum midline, mucosa normal, no drainage or sinus tenderness. Oropharynx: Lips, mucosa, and tongue normal, teeth and gums normal, oropharynx normal. Neck: Supple, no adenopathy Lungs: Lungs clear to auscultation. No wheezing, rhonchi, rales. Heart: RRR without murmur, gallop, or rubs. No ectopy. Neurologic: Gait normal. ASSESSMENT/PLAN: 1. URI, acute - ICD9: 465.9, ICD10: J06.9 (primary diagnosis) - Discussed viral etiology and rationale for treatment. - Symptomatic treatment with prn analgesia - Supportive care with fluids and rest - The patient may also use mucinex, sudafed, or robitussin -- handout given with safe medications in . 2. Acute pharyngitis, unspecified etiology - ICD9: 462, ICD10: J02.9 - suspect viral - Discussed supportive care treatment with fluids, rest and analgesia. - The patient may also use mucinex, sudafed, or robitussin -- handout given with safe medications in . - RAPID STREP TEST B/O - GROUP A STREPTOCOCCUS BY PCR Discussed treatment plan and patient voices understanding. Patient's questions answered appropriately. Medications and potential side effects were discussed and patient voices understanding. Return to the office as scheduled or as needed for worsening/no improvement. Ashley Hopkins APRN.CHARLEEN Hopkins APRN.CNP 07/30/2018 2:44 PM Signed 1. Please see attached list of medication safe in . 2. Increase fluids. 3. Tylenol for aches/pains. (No ibuprofen). 4. Encourage flu shot. Referring Provider: SELF [200] Allergies As of Date: 07/30/2018 Noted Allergy Reaction FLAGYL (METRONIDAZOLE HCL) 12/25/2017 2 - Rash 9 - Itching Date Reviewed: 07/30/2018 Reviewed by: Taylor Hall Scientific Recruiter - Fully Assessed Reason for Visit: Head Congestion [234] Cmt: X 4 days Primary Visit Diagnosis:URI, acute [J06.9] Other Visit Diagnosis:Acute pharyngitis, unspecified etiology [J02.9] Order(s):RAPID STREP TEST B/O [[id number]] Order #: [id number] GROUP A STREPTOCOCCUS BY PCR [SQGASPCR] Order #: [id number] FUTURE Prescriptions as of 07/30/2018 Sig: IPRATROPIUM BROMIDE 0.02 % SO* Use 2.5 mL via nebulizer four* BECLOMETHASONE DIPROPIONATE 8* Inhale 1 Puff as instructed t* RANITIDINE 150 MG TABLET Take 1 tablet by mouth twice * PROAIR HFA 90 MCG/ACTUATION A* Problem List As Of Date 07/30/2018 Noted Resolved Dysuria [R30.0] INVALID FOR* Asthma [J45.909] HTN (hypertension) [I10] 06/22/2018 Hyperlipidemia [E78.5] Kidney stones [N20.0] Morbid obesity with BMI of 45.0-49.9, adult (HC*INVALID FOR* Other instructions from your clinician: 1. Please see attached list of medication safe in . 2. Increase fluids. 3. Tylenol for aches/pains. (No ibuprofen). 4. Encourage flu shot. Medications Discontinued During This Encounter cetirizine (ZYRTEC) 10 mg tablet 12/25/2017 07/30/2018 Class: Historical Med Route: ORAL Sig: Take 1 tablet by mouth once daily. Disc: Other Letter Text Ashley Hopkins CNP [address], [place] [address] 07/30/2018 TO WHOM IT MAY CONCERN: This is to confirm that Luis Leone had an appointment and was seen at the [facility] in the Department of Family Medicine by Ashley Hopkins CNPon 07/30/2018. Please excuse from work on 07/30/18 and 07/31/18 for medical reasons. She may return to work on 08/01/18. Sincerely yours, Ashley Hopkins CNP Encounter Status:Closed by ASHLEY HOPKINS CNP on 07/30/18 EMERGENCY REPORT Observed: 07/23/2018 Status: F Source: [facility] [place] 8:16 AM [facility] EMERGENCY ROOM REPORT NAME ACCOUNT SEX AGE ADMIT DISCHARGE PT MED. RECORD# NUMBER DATE DATE TYPE SULEMA [id number] F 22 07/20/18 3 LUIS Moeller [id number] ROOM: ER DATE OF : 1995 DICTATING PHYSICIAN: Abhilash Martines HISTORY OF PRESENT ILLNESS: The patient came in. She has been under stress at work. She got into a verbal altercation with one of her supervisors and started having chest pain, back pain, abdominal pain. The chest pain resolved. She had some minimal abdominal pain and says it is a 3 out of 10 and she presents to the emergency department. She denied any fever, chills, nausea or vomiting. She is . She had an ultrasound yesterday by Dr. Velasquez, which was unremarkable. We did do heart tones here and were able to get heart tones in the 140s; however, we were unable to get a real audible number. She is rather large. PAST MEDICAL HISTORY: She has a history of hypertension, hyperlipidemia, obesity. She has had kidney stones. SOCIAL HISTORY: She quit smoking. She denies alcohol use. REVIEW OF SYSTEMS: Ten systems reviewed and negative except as mentioned above. DIAGNOSTIC DATA: The patient's urinalysis is nitrite negative, leukocyte esterase 100, 6 to 10 WBCs. She had many epithelial cells. This is probably more of a contaminated specimen. PHYSICAL EXAMINATION: She is an awake, alert, and oriented female in no acute distress. She is afebrile. Blood pressure 126/82, pulse 99, respirations 20, and pulse ox 95% on room air. Head is normocephalic and atraumatic. Eyes: Pupils are equal, round, and reactive to light. Extraocular muscles intact. Nares are patent. Throat has adequate moisture. Uvula is midline. Neck is supple without petechiae or rash. Heart without murmur. S1 equals S2. No S3 or S4 appreciated. Lungs are clear to auscultation bilaterally. No rales, rhonchi, or retractions. Abdomen is soft, nontender, and nondistended. Skin is warm and dry. EMERGENCY DEPARTMENT COURSE AND TREATMENT: She will be discharged in stable. DIAGNOSES: 1. Threatened miscarriage. 2. Abdominal pain. Page 1 of 2 LUIS LEONE Emergency Room Report PLAN/DISPOSITION: I told her to return if any problems. Dictated By: Abhilash Martines DO 07/20/18 14:18 JOB #: [id number] Transcribed By: am 07/20/18 14:29 Electronically signed by: BRUCE Martines D.O. 07/23/18 08:16 Page 2 of 2 LUIS LEONE Emergency Room Report URINALYSIS WITH Collected: 07/20/2018 Status: F Source: [facility] MICROSCOPY 12:51 PM [facility] REPOSITORY TYPE CODE TESTS RESULT OUT OF REFERENCE UNITS RANGE LAB URINALYSIS WITH MICROSCOPY(LOIN C) URINALYSIS WITH MICROSCOPY Result Comment: URINALYSIS LAB Specimen Type(LOINC) Specimen Type Clean catch LAB Color(LOINC) NORMAL: YELLOW Color neva LAB Clarity(LOINC) NORMAL: CLEAR Clarity clear LAB ph(LOINC) NORMAL: 5.0-8.0 ph 7 LAB Protein(LOINC) NORMAL: Abnormal NEGATIVE Protein 30 LAB Glucose(LOINC) NORMAL: NORMAL Glucose NORM LAB Ketone(LOINC) NORMAL: Abnormal NEGATIVE Ketone 5 LAB Bilirubin(LOINC) NORMAL: NEGATIVE Bilirubin NEG LAB Blood(LOINC) NORMAL: Abnormal NEGATIVE Blood 50 LAB Urobilinog(LOINC) NORMAL: NORMAL Urobilinog NORM LAB Sp [place](LOINC) NORMAL: 1.010-1.030 Sp [place] 1.010 LAB Nitrite(LOINC) NORMAL: NEGATIVE Nitrite NEG LAB Leukocytes(LOINC) NORMAL: Abnormal NEGATIVE Leukocytes 100 Result Comment: URINE MICROSCOPIC LAB Wbc(INC) 0-5 / hpf Wbc 6-10 LAB Rbc(LOINC) 0-3 / hpf Rbc 5-10 LAB Casts(LOINC) Casts NONE LAB Crystals(LOINC) Crystals NONE LAB Amorphous(INC) Amorphous NONE LAB Bacteria(INC) Bacteria 2+ LAB Epi Cells(INC) Epi Cells MANY LAB Mucous(INC) Mucous 2+ LAB Yeast(INC) Yeast NONE Performed By: #### [id number] #### [facility],[address] [place] [address] EMERGENCY REPORT Observed: 07/13/2018 Status: F Source: [facility] 9:18 PM [facility] EMERGENCY ROOM REPORT NAME ACCOUNT SEX AGE ADMIT DISCHARGE PT MED. RECORD# NUMBER DATE DATE TYPE SULEMA [id number] F 22 05/28/18 05/29/18 3 LUIS Moeller [id number] ROOM: ER DATE OF : 1995 DICTATING PHYSICIAN: Codie Hill CHIEF COMPLAINT/HISTORY OF PRESENT ILLNESS: This is a 22-year-old female who came to the emergency room and was seen in room #6 in the presence of her boyfriend and friends for lower back discomfort which she believes is on the right and then some of it is radiating up to her abdomen, sometimes it is on the left. She states it is uncomfortable from time to time. She has had this in the past. She has had CAT scans in the past. She really does not want a CAT scan today. She states that she did have an episode of emesis, but since that time she has been able to keep food and fluids down. Her periods are irregular. She states she has been trying to get for 5 years. She is going to a fertility clinic. She states she is not . She denies diabetes. She denies heart disease, chronic lung disorders. She believes that the discomfort is from doing a lot of lifting at work. She denies vaginal discharge. She denies any vaginal bleeding but she notes that she has had some feeling of needing to go to the bathroom often but no burning with urination. SOCIAL HISTORY: She states she is a smoker. She is employed, she is working. REVIEW OF SYSTEMS: No headaches. No sore throat. No change of vision, hearing, speech. No cough, congestion. No chest pain. No abdominal pain. No posterior leg pain. No rashes. She denies fever or chills. PHYSICAL EXAMINATION: Vital signs at arrival: 97.9 oral temperature, 94 monitored pulse, 16 respirations, 141/84 blood pressure with 99% saturation. She is a rather heavy individual. She moves somewhat slow. As she sits up and lies back she can feel the pain and she indicates the discomfort really along the to part of the pelvis at L5-S1 area. No rash is present there. She is not toxic at all. She does not have any sweating. She is not tachypneic. She speaks in complete sentences and is well-spoken. There is no sense of sepsis. Her HEENT exam is normal. Neck is supple. Good eye contact. Heart rate and rhythm is regular without a murmur. PMI left breast. Abdomen is totally soft, nondistended. DIAGNOSTIC DATA: We decided to do a test and test urine came back positive. There was a considerable amount of emulation present in the patient and her boyfriend. They have been trying for 5 years for her to become . Her quantitative was just over 1000. Urine was otherwise satisfactory. We decided to do an ultrasound and the ultrasound pelvic was performed in the emergency department prior to the patient's discharge. The results showed there was a single IUP Page 1 of 2 LUIS LEONE Emergency Room Report without any evidence of ectopic. The clinical age was 4 weeks, 3 days. There was a right adnexal cyst. There was no bleeding, no torsion. pole was not demonstrated because it is early. The urine did not demonstrate any evidence of infection. EMERGENCY DEPARTMENT COURSE AND TREATMENT: I spent some time with the patient telling her that her tests are basically normal except that she is now and that careful followup was necessary. No Advil, no aspirin. No smoking. Follow up was to be with an POLICY CHANGE CLERK of her choice or with the fertility clinic with whom she was associated. She was given a no work excuse for the and 29 of May. DIAGNOSES: 1. Urinary frequency. 2. . PLAN/DISPOSITION: Discharged ambulatory from the emergency room in no distress. She is to return p.r.n. as necessary. Dictated By: Codie Hill DO 06/24/18 05:56 JOB #: [id number] Transcribed By: donnell 06/24/18 22:10 Electronically signed by: E-SIGN CODIE HILL DO 07/13/18 21:18 Page 2 of 2 LUIS LEONE Emergency Room Report URINE DRUG SCREEN Collected: 06/21/2018 Status: F Source: [facility] ([place]) 4:[address] [facility] REPOSITORY Order Comment: List of Drugs Taken or Suspected? UNK TYPE CODE TESTS RESULT OUT OF RANGE REFERENCE UNITS LAB L505.0075 TO BE Normal CONFIRMED Result Comment: CONFIRMATORY TESTING FOR ALL POSITIVE URINE DRUG SCREEN RESULTS WILL ONLY BE SENT OUT UPON PHYSICIAN ORDER. VISTA Urine Drug Screen methods provide only preliminary analytical test results. A more specific alternate chemical method must be used in order to obtain a confirmed analytical result. Gas chromatography/mass spectrometery (GC/MS) is the preferred confirmatory method. Clinical consideration and professional judgement should be applied to any drug of abuse test result, particularly when preliminary positive results are used. URINE TCA TESTING MUST BE ORDERED SEPARATELY. USE TEST MNEMONIC: [facility] LAB L505.5005 VISTA UDS PH 7 Normal LAB L505.5015 <1000 ng/mL AMPHETAMINES Normal NEGATIVE LAB L505.5025 < 200 ng/mL BARBITIURATES Normal NEGATIVE LAB L505.5035 < 200 ng/mL BENZODIAZIPINE Normal NEGATIVE LAB L505.5045 < 300 ng/mL COCAINE Normal NEGATIVE LAB L505.5055 < 500 ng/mL ECSTACY Normal NEGATIVE LAB L505.5065 < 300 ng/mL METHADONE Normal NEGATIVE LAB L505.5075 < 300 ng/mL OPIATES Normal NEGATIVE LAB L505.5085 < 25 ng/mL PCP Normal NEGATIVE LAB L505.5095 < 50 ng/mL THC Normal NEGATIVE Performed By: #### L505.5000, L505.6240 #### [facility] [address] [place], [place], [address] NICOTINE URINE DRUG Collected: 06/21/2018 Status: F Source: [facility] SCREEN 4:[address] [facility] REPOSITORY Order Comment: List of Drugs Taken or Suspected? UNK TYPE CODE TESTS RESULT OUT OF RANGE REFERENCE UNITS LAB L505.6250 TO BE Normal CONFIRMED Result Comment: CONFIRMATORY TESTING FOR ALL POSITIVE URINE DRUG SCREEN RESULTS WILL ONLY BE SENT OUT UPON PHYSICIAN ORDER. The results of Urine Drug Screen methods provide only preliminary analytical test results. A more specific alternate chemical method must be used in order to obtain a confirmed analytical result. Gas chromatography/mass spectrometery (GC/MS) is the preferred confirmatory method. Clinical consideration and professional judgement should be applied to any drug of abuse test result, particularly when preliminary positive results are used. LAB L505.6270 <200 ng/mL Normal COT DRG Negative SCREEN Result Comment: Cotinine is the first-stage metabolite of Nicotine. Performed By: #### L505.5000, L505.6240 #### [facility] [address] [place], [address] CBC W/DIFF, AUTOMATED Collected: 06/21/2018 Status: F Source: [facility] 4:[address] [facility] REPOSITORY TYPE CODE TESTS RESULT OUT OF RANGE REFERENCE UNITS LAB L100.1000 4.4-11.0 K/mm3 Normal WBC 7.0 LAB L100.1200 4.2-5.4 M/mm3 Normal RBC 4.55 LAB L100.1300 12.0-15.0 g/dl Normal HGB 13.0 LAB L100.1400 37-47 % Normal HCT 40.2 LAB L100.1500 81-99 fL Normal MCV 88.4 LAB L100.1600 27.0-32.0 pg Normal MCH 28.6 LAB L100.1700 32-36 g/gl Normal MCHC 32.3 LAB L100.1810 11.6-14.6 % Normal RDW CV 13.7 LAB L100.1820 35.1-43.9 fl High RDW SD 44.0 LAB L100.1900 150-450 K/mm3 Normal PLT 341 LAB L100.2000 6.2-12.0 fl Normal MPV 10.3 LAB L100.2100 47-70 % Normal NEUT% 56.6 LAB L100.2200 19-41 % Normal LY% 29.9 LAB L100.2300 0-10 % High MONO% 11.2 LAB L100.2400 0-5 % Normal EO% 2.1 LAB L100.2500 0-1 % Normal BASO% 0.1 LAB L100.2550 0.0-0.9 % Normal IM GRAN % 0.100 Result Comment: IG% - Immature Granulocytes (promyelocytes, myelocytes and metamyelocytes) > 1% indicates that a LEFT SHIFT is Present. LAB L100.2620 2.0-7.7 X10 3/uL Normal Absolute Neut 3.9 LAB L100.2720 0.83-4.51 X10 3/ul Normal Absolute Lymph 2.09 Performed By: #### L100.0100 #### [facility] [address] [place], [address] THYROID STIM HORMONE Collected: 06/21/2018 Status: F Source: [place] (TSH) 4:[address] [facility] REPOSITORY TYPE CODE TESTS RESULT OUT OF RANGE REFERENCE UNITS LAB L501.9520 0.358-3.74 uIU/mL Normal TSH 1.31 Performed By: #### L501.9520 #### [facility] [address] [place], [address] URINALYSIS, ROUTINE Collected: 06/21/2018 Status: F Source: [facility] (DIPSTICK) 4:[address] [facility] REPOSITORY Order Comment: How was Urine Obtained? Urine, Random TYPE CODE TESTS RESULT OUT OF RANGE REFERENCE UNITS LAB L400.3000 Yellow COLOR Normal Yellow LAB L400.3050 Clear Normal CLARITY Clear LAB L400.3200 Normal mg/dl Normal GLUCOSE, UR Normal LAB L400.3300 Negative mg/dL Normal BILIRUBIN URINE Negative LAB L400.3400 Negative mg/dl High 5 KETONE UR LAB L400.3465 1.002-1.030 Normal SP.GR. DIPSTX 1.010 LAB L400.3550 5.0 - 8.0 pH UR Normal 7.0 LAB L400.3600 Negative mg/dl PROT Normal DIPSTX Negative LAB L400.3700 Normal mg/dl Normal UROBILI Normal LAB L400.3750 Negative Normal NITRITE UR Negative LAB L400.3780 Negative /ul Normal OCCULT BLOOD-UR Negative LAB L400.3800 Negative /ul LEUK Normal ESTERASE Negative Performed By: #### L400.2010 #### [facility] [address] [place], [address] RUBELLA IGG Collected: 06/21/2018 Status: F Source: [place] 4:[address] [facility] REPOSITORY TYPE CODE TESTS RESULT OUT OF RANGE REFERENCE UNITS LAB L509.4000 IU/mL Normal Rubella IgG 79.3 Result Comment: Antibody results Interpretation of Immune Status < 5 IU/ml Presumed Non-immune 5 - < 10 IU/ml Equivocal > or = 10 IU/ml Presumed Immune Performed By: #### L509.4000, L3890.6005 #### [facility] [address] [facility] [place], [address] HIV - [facility] Collected: 06/21/2018 Status: F Source: [place] 4:02 [facility] REPOSITORY TYPE CODE TESTS RESULT OUT OF RANGE REFERENCE UNITS LAB L3890.6005 Nonreactive Normal HIV - [facility] Non-Reactive Performed By: #### L509.4000, L3890.6005 #### [facility] [address] [facility] [place], [address] T AND S-NO Collected: 06/21/2018 Status: F Source: [facility] CHARGE W/PNP 4:[address] [facility] REPOSITORY Order Comment: Reason for Type AND Screen/Red Cells: Surgery? N TYPE CODE TESTS RESULT OUT OF RANGE REFERENCE UNITS LAB B10.0800 O Normal BLOOD POSITIVE TYPE GEL LAB B100.4050 Normal Ab SCREEN NEGATIVE GEL Performed By: #### B100.7550 #### [facility] [address] [facility] [place], [address] HEPATITIS B SURFACE Collected: 06/21/2018 Status: F Source: [facility] AG 4:[address] [facility] REPOSITORY TYPE CODE TESTS RESULT OUT OF RANGE REFERENCE UNITS LAB L3100.0400 Negative Normal HB Negative SURF AG Result Comment: Performed at: - [facility] [id number] [employer] Crewmember: Kory Saucedo PhD, Phone: [phone] Performed By: #### L3100.0390, L3100.0625 #### [facility] (refer to report for specific site) refer to report for address and phone number HEPATITIS C ANTIBODIES Collected: 06/21/2018 Status: F Source: FCO 4:[address] [facility] REPOSITORY TYPE CODE TESTS RESULT OUT OF RANGE REFERENCE UNITS LAB L3100.0650 0.0-0.9 s/co ratio Normal HEP C AB 0.1 Result Comment: Negative: < 0.8 Indeterminate: 0.8 - 0.9 Positive: > 0.9 The CDC recommends that a positive HCV antibody result be followed up with a HCV Nucleic Acid Amplification test ([id number]). Performed By: #### L3100.0390, L3100.0625 #### [facility] (refer to report for specific site) refer to report for address and phone number RPR Collected: 06/21/2018 Status: F Source: [place] 4:[address] [facility] REPOSITORY TYPE CODE TESTS RESULT OUT OF REFERENCE UNITS RANGE LAB L700.5100 NONREACTIVE Normal RPR NONREACTIVE Performed By: #### L700.5100 #### [facility] [address] [place], [place], [address] PROGRESS Observed: 06/01/2018 Status: COMPLETED Source: [place] 7:21 PM [facility] REPOSITORY HNO ID: [id number] Author: Vijaya Day Service: (none) Author Type: Physician Type: Progress Notes Filed: 06/22/2018 10:24 PM Note Text: HISTORY Luis Leone is a 22 year old lady here to be formally established with me. 5 weeks . Nausea an cramping. Heartburn. Told to stay hydrated. No kidney stone at ER appointment. Dr. Velasquez is her OB. She stopped meds. Only taking asthma meds, inhalers, zantac, Zyrtec. BP at Dr. Velasquez's office was okay. Has not been taking BP meds for several months. No symptoms of high BP. Asthma sometimes needs albuterol when hot. Not needing frequent. Has urologist in [place] who manages kidney stones. Saw Pallavi Rucker for the recurrent UTIs issue back in December. Getting vitamins OTC. PAST MEDICAL HISTORY Diagnosis Date - Asthma - HTN (hypertension) - Hyperlipidemia - Kidney stones Current Outpatient Prescriptions: cetirizine (ZYRTEC) 10 mg tablet Take 1 tablet by mouth once daily. ipratropium (ATROVENT) 0.02 % nebulizer solution Use 2.5 mL via nebulizer four times daily as needed for Wheezing/Shortness of Breath. Use over 5-15minutes. beclomethasone (QVAR) 80 mcg/actuation inhaler Inhale 1 Puff as instructed twice daily. ranitidine (ZANTAC) 150 mg tablet Take 1 tablet by mouth twice daily. PROAIR HFA 90 mcg/actuation inhaler No current facility-administered medications for this visit. ALLERGIES Allergen Reactions - Flagyl [Metronidazo* Rash, Itching PAST SURGICAL HISTORY Procedure Laterality Date - PAST SURGICAL HISTORY OF kidney stones 2013 FAMILY HISTORY Problem Relation Age of Onset - htn [OTHER] Mother - Hyperlipidemia Father - Heart Father - stents [OTHER] Father - htn [OTHER] Father - Diabetes Paternal Grandmother Social History Marital status: Spouse name: Years of education: Number of children: Social History Main Topics Smoking status: Former Smoker Packs/day: 0.00 Years: 4.00 Types: Cigarettes Quit date: 05/26/2018 Smokeless tobacco: Never Used Alcohol use: No Comment: socially Drug use: No REVIEW OF SYSTEMS Aside from above, Constitutional, HEENT, CV, PULM, GI, , PSYCH, DERM, HEM/ONC, NEURO negative. PHYSICAL EXAMINATION: Blood pressure 140/89, pulse 88, temperature 36.6 ?C (97.8 ?F), temperature source Temporal Artery, height 167.6 cm (5' 6), weight 131.1 kg (289 lb), last menstrual period 12/04/2017, SpO2 99 %. Body mass index is 46.65 kg/m?. Last 5 Encounter BP Readings: Date: BP: 06/01/2018 140/89 01/21/2018 140/98 12/25/2017 140/80 Last 5 Encounter Wt Readings: Date: Wt: 06/01/2018 131.1 kg (289 lb) 01/21/2018 131.5 kg (290 lb) 12/25/2017 130.4 kg (287 lb 6.4 oz) 06/01/18 1900 06/01/18 1933 BP: 140/89 124/78 Pulse: 88 Temp: 36.6 ?C (97.8 ?F) TempSrc: Temporal Artery SpO2: 99% Weight: 131.1 kg (289 lb) Height: 167.6 cm (5' 6) General appearance: well appearing, in no acute distress, well-hydrated, well nourished Skin: Skin color, texture, turgor normal. No significant rashes or lesions. Head: Normal Eyes: Anicteric sclera. Pupils are equally round and reactive to light. Extraocular movements are intact. Ears: External ears normal. Canals clear. TM's unremarkable. Nose/Sinuses: negative Oropharynx: Lips, mucosa, and tongue normal. Teeth and gums normal. Oropharynx normal. Neck: Neck supple, no adenopathy; thyroid symmetric, normal size, no bruits. Lungs: Lungs clear to auscultation Heart: negative. RRR without murmur, gallop, or rubs. No ectopy. Abdomen: Abdomen soft, non-tender. Bowel sounds normal. No masses, organomegaly Extremities: Extremities normal. No deformities, edema, or skin discoloration. Good capillary refill. Musculoskeletal: grossly normal Peripheral pulses: Normal Neuro: Gait normal. Reflexes normal and symmetric. Sensation grossly intact. No gross focal neurological deficits. ASSESSMENT AND PLAN See diagnoses and orders Encounter Diagnosis ICD-10-CM 1. Mild intermittent asthma without complication J45.20 2. Kidney stones N20.0 3. Morbid obesity with BMI of 45.0-49.9, adult ([facility]) E66.01 Z68.42 22 year old lady here to be formally established with me. Had seen patient in December for acute appointment. History and medications reviewed. Epic updated as needed Above issues addressed with patient. Patient involved in shared decision making for management of her medical issues. Refills taken care of and meds adjusted as indicated after reviewed history, exam and labs. Health Maintenance reviewed. Updated record and/or ordered tests as recorded. Encouraged on efforts at healthy diet and regular exercise and adequate sleep. Needs to keep working on diet and exercise with lifestyle changes for effective weight loss as well as control of glucose, BP and lipids. Follow with urologist routinely. Asthma fine with prn albuterol use. Discussed BP. Was high initially but improved to <130/80 on recheck. Continue to monitor. Not needing BP meds now. The majority of the visit was spent counseling and/or coordinating care for the patient. Uiko-cb-pghp time was at least 30 minutes. Vijaya Day MD CNOV Observed: 06/01/2018 Status: COMPLETED Source: [place] 6:20 PM [facility] REPOSITORY Office Visit (INTMWS) LUIS LEONE ([id number]) 1995 F Date Time Provider Department 06/01/18 6:20 PM VIJAYA DAY INTMWS During your visit today, we recorded the following information about you: Temperature Pulse Blood pressure Weight 97.8 degrees 88/minute 124/78 131.1 kg Height 1.676 m Vijaya Day MD 06/22/2018 10:24 PM Signed HISTORY Luis Leone is a 22 year old lady here to be formally established with sc. 5 weeks . Nausea an cramping. Heartburn. Told to stay hydrated. No kidney stone at ER appointment. Dr. Velasquez is her OB. She stopped meds. Only taking asthma meds, inhalers, zantac, Zyrtec. BP at Dr. Velasquez's office was okay. Has not been taking BP meds for several months. No symptoms of high BP. Asthma sometimes needs albuterol when hot. Not needing frequent. Has urologist in [place] who manages kidney stones. Saw Pallavi Rucker for the recurrent UTIs issue back in December. Getting vitamins OTC. PAST MEDICAL HISTORY Diagnosis Date - Asthma - HTN (hypertension) - Hyperlipidemia - Kidney stones Current Outpatient Prescriptions: cetirizine (ZYRTEC) 10 mg tablet Take 1 tablet by mouth once daily. ipratropium (ATROVENT) 0.02 % nebulizer solution Use 2.5 mL via nebulizer four times daily as needed for Wheezing/Shortness of Breath. Use over 5-15minutes. beclomethasone (QVAR) 80 mcg/actuation inhaler Inhale 1 Puff as instructed twice daily. ranitidine (ZANTAC) 150 mg tablet Take 1 tablet by mouth twice daily. PROAIR HFA 90 mcg/actuation inhaler No current facility-administered medications for this visit. ALLERGIES Allergen Reactions - Flagyl [Metronidazo* Rash, Itching PAST SURGICAL HISTORY Procedure Laterality Date - PAST SURGICAL HISTORY OF kidney stones 2013 FAMILY HISTORY Problem Relation Age of Onset - htn [OTHER] Mother - Hyperlipidemia Father - Heart Father - stents [OTHER] Father - htn [OTHER] Father - Diabetes Paternal Grandmother Social History Marital status: Spouse name: Years of education: Number of children: Social History Main Topics Smoking status: Former Smoker Packs/day: 0.00 Years: 4.00 Types: Cigarettes Quit date: 05/26/2018 Smokeless tobacco: Never Used Alcohol use: No Comment: socially Drug use: No REVIEW OF SYSTEMS Aside from above, Constitutional, HEENT, CV, PULM, GI, , PSYCH, DERM, HEM/ONC, NEURO negative. PHYSICAL EXAMINATION: Blood pressure 140/89, pulse 88, temperature 36.6 ?C (97.8 ?F), temperature source Temporal Artery, height 167.6 cm (5' 6), weight 131.1 kg (289 lb), last menstrual period 12/04/2017, SpO2 99 %. Body mass index is 46.65 kg/m?. Last 5 Encounter BP Readings: Date: BP: 06/01/2018 140/89 01/21/2018 140/98 12/25/2017 140/80 Last 5 Encounter Wt Readings: Date: Wt: 06/01/2018 131.1 kg (289 lb) 01/21/2018 131.5 kg (290 lb) 12/25/2017 130.4 kg (287 lb 6.4 oz) 06/01/18 1900 06/01/18 1933 BP: 140/89 124/78 Pulse: 88 Temp: 36.6 ?C (97.8 ?F) TempSrc: Temporal Artery SpO2: 99% Weight: 131.1 kg (289 lb) Height: 167.6 cm (5' 6) General appearance: well appearing, in no acute distress, well-hydrated, well nourished Skin: Skin color, texture, turgor normal. No significant rashes or lesions. Head: Normal Eyes: Anicteric sclera. Pupils are equally round and reactive to light. Extraocular movements are intact. Ears: External ears normal. Canals clear. TM's unremarkable. Nose/Sinuses: negative Oropharynx: Lips, mucosa, and tongue normal. Teeth and gums normal. Oropharynx normal. Neck: Neck supple, no adenopathy; thyroid symmetric, normal size, no bruits. Lungs: Lungs clear to auscultation Heart: negative. RRR without murmur, gallop, or rubs. No ectopy. Abdomen: Abdomen soft, non-tender. Bowel sounds normal. No masses, organomegaly Extremities: Extremities normal. No deformities, edema, or skin discoloration. Good capillary refill. Musculoskeletal: grossly normal Peripheral pulses: Normal Neuro: Gait normal. Reflexes normal and symmetric. Sensation grossly intact. No gross focal neurological deficits. ASSESSMENT AND PLAN See diagnoses and orders Encounter Diagnosis ICD-10-CM 1. Mild intermittent asthma without complication J45.20 2. Kidney stones N20.0 3. Morbid obesity with BMI of 45.0-49.9, adult ([facility]) E66.01 Z68.42 22 year old lady here to be formally established with me. Had seen patient in December for acute appointment. History and medications reviewed. Epic updated as needed Above issues addressed with patient. Patient involved in shared decision making for management of her medical issues. Refills taken care of and meds adjusted as indicated after reviewed history, exam and labs. Health Maintenance reviewed. Updated record and/or ordered tests as recorded. Encouraged on efforts at healthy diet and regular exercise and adequate sleep. Needs to keep working on diet and exercise with lifestyle changes for effective weight loss as well as control of glucose, BP and lipids. Follow with urologist routinely. Asthma fine with prn albuterol use. Discussed BP. Was high initially but improved to <130/80 on recheck. Continue to monitor. Not needing BP meds now. The majority of the visit was spent counseling and/or coordinating care for the patient. Movo-ek-fjtz time was at least 30 minutes. Vijaya Day MD Referring Provider: VIJAYA DAY [[id number]] Allergies As of Date: 06/01/2018 Noted Allergy Reaction FLAGYL (METRONIDAZOLE HCL) 12/25/2017 2 - Rash 9 - Itching Date Reviewed: 06/01/2018 Reviewed by: Luna Flynn Scientific Recruiter - Fully Assessed Reason for Visit: Establish Care [42] Cmt: 5 weeks Primary Visit Diagnosis:Mild intermittent asthma without complication [J45.20] Other Visit Diagnoses:Kidney stones [N20.0] Morbid obesity with BMI of 45.0-49.9, adult ([facility]) [E66.01, Z68.42] Prescriptions as of 06/01/2018 Sig: CETIRIZINE 10 MG TABLET Take 1 tablet by mouth once d* IPRATROPIUM BROMIDE 0.02 % SO* Use 2.5 mL via nebulizer four* BECLOMETHASONE DIPROPIONATE 8* Inhale 1 Puff as instructed t* RANITIDINE 150 MG TABLET Take 1 tablet by mouth twice * PROAIR HFA 90 MCG/ACTUATION A* Problem List As Of Date 06/01/2018 Noted Resolved Dysuria [R30.0] INVALID FOR* Medications Discontinued During This Encounter clomiPHENE (SEROPHENE) 50 mg tablet 12/25/2017 06/01/2018 Class: Med Update Si mg oral dose Cycle days 3 through 7 (Dr. Velasquez) Disc: Discontinued by Patient Cranberry Extract (CRANBERRY CONCENT* 12/25/2017 06/01/2018 Class: Historical Med Route: ORAL Sig: Take 1 capsule by mouth once daily. Disc: Discontinued by Patient FLUoxetine (PROZAC) 20 mg capsule 12/25/2017 06/01/2018 Class: Historical Med Route: ORAL Sig: Take 1 capsule by mouth once daily. Disc: Discontinued by Patient ibuprofen (MOTRIN) 800 mg tablet 12/25/2017 06/01/2018 Class: Historical Med Route: ORAL Sig: Take 1 tablet by mouth every 8 hours as needed for Pain. Take with food. Disc: Discontinued by Patient labetalol (TRANDATE) 200 mg tablet 12/25/2017 06/01/2018 Class: Historical Med Route: ORAL Sig: Take 1 tablet by mouth twice daily. Disc: Discontinued by Patient Psyllium Seed-Sucrose (METAMUCIL, QURESHI* 12/25/2017 06/01/2018 Class: Historical Med Route: ORAL Sig: Take 3 Tablespoonsful by mouth three times daily as needed. Disc: Discontinued by Patient metFORMIN ER (GLUCOPHAGE XR) 750 mg * 12/25/2017 06/01/2018 Class: Med Update Route: ORAL Sig: Take 1 tablet by mouth twice daily. Disc: Discontinued by Patient montelukast (SINGULAIR) 10 mg tablet 12/25/2017 06/01/2018 Class: Historical Med Route: ORAL Sig: Take 1 tablet by mouth daily at bedtime. Disc: Discontinued by Patient mupirocin (BACTROBAN) 2 % ointment 12/25/2017 06/01/2018 Class: Historical Med Route: TOPICAL Sig: Apply 1 application to affected area three times daily. Location: for break out on face Disc: Discontinued by Patient progesterone micronized (PROMETRIUM)* 0 12/25/2017 06/01/2018 Class: Historical Med Route: ORAL Sig: Take 1 capsule by mouth daily at bedtime. Disc: Discontinued by Patient amLODIPine (NORVASC) 5 mg tablet 12/21/2015 06/01/2018 Class: Historical Med Sig: Disc: Discontinued by Patient Norethindrone, Contraceptive, 0.35 m* 12/21/2015 06/01/2018 Class: Historical Med Sig: Disc: Discontinued by Patient VITAMIN D 50,000 unit capsule 12/28/2015 06/01/2018 Class: Historical Med Sig: Disc: Discontinued by Patient CLEARLAX 17 gram/dose powder 12/28/2015 06/01/2018 Class: Historical Med Sig: Disc: Discontinued by Patient spironolactone (ALDACTONE) 100 mg ta* 12/28/2015 06/01/2018 Class: Historical Med Sig: Disc: Discontinued by Patient Disposition: Return in about 1 year (around 06/01/2019) for Yearly exam and follow up (40 min). Follow-up and Disposition History Recorded Encounter Status:Closed by VIJAYA DAY MD on 06/22/18 CT/NG [facility] BY PCR Collected: 05/31/2018 Status: F Source: [place] 2:[address] [facility] REPOSITORY TYPE CODE TESTS RESULT OUT OF RANGE REFERENCE UNITS LAB L8200.2100 Negative Normal Chlam Negative Trac PCR LAB L8200.2200 Negative Normal NG by Negative PCR Performed By: #### L8200.2000 #### [facility] [place], [address] PAP TEST I-G Collected: 05/31/2018 Status: F Source: [place] 2:[address] [facility] REPOSITORY Order Comment: CYTOLOGY INFORMATION: - CLINICAL INFORMATION: - DATE LMP/MENOPAUSE: LMP 04/24/18 - COLLECTION VIAL: Thin Prep Vial - STOPE MINER SOURCE: CERVICAL/ENDOCERVICAL - COLLECTION TECHNIQUE: BRUSH/SPATULA Specimen Comment: [id number] Specimen Comment: No. of containers..01 ThinPrep Vial TYPE CODE TESTS RESULT OUT OF RANGE REFERENCE UNITS LAB L7400.0800 . Normal DIAGN Comment Result Comment: NEGATIVE FOR INTRAEPITHELIAL LESION AND MALIGNANCY. LAB L7400.0900 . Normal ADEQ Comment Result Comment: Satisfactory for evaluation. Endocervical and/or squamous metaplastic cells (endocervical component) are present. LAB L7400.1400 . Normal PERFORM Comment Result Comment: Nikkie Hernandez, Pharmacy Associate LAB L7400.2575 . Normal TEST METHOD Comment Result Comment: This liquid based ThinPrep(R) pap test was screened with the use of an image guided system. Performed at: [facility] [id number] [employer]anging Crewmember: Ladan Alanis MD, Phone: [phone] LAB L7930.5744 . Normal . COMM LAB L7400.9450 . Normal PAPSMR Comment Result Comment: The Pap smear is a screening test designed to aid in the detection of premalignant and malignant conditions of the uterine cervix. It is not a diagnostic procedure and should not be used as the sole means of detecting cervical cancer. Both false-positive and false-negative reports do occur. Performed By: #### L7400.0399 #### [facility] (refer to report for specific site) refer to report for address and phone number OB INITIAL< 14 Observed: 05/29/2018 Status: F Source: [facility] [place] WEEKS; 1ST GESTATION 2:06 AM [place] [address] [place], [place] [address] Patient: LUIS LEONE Phone#: : [phone] Age: 22 Gender: F Pt. Type: ER Account: [id number] Location: 052 Ordering: SASCHA ANTOINE Exam Date: 05/29/2018/1:24 Family Phys: VIJAYA TALAMPAS Charge Code: [id number] Physician: DR. CODIE HILL [place] Order #: [id number] DLP Dose#: PROCEDURE: OB INITIAL <14 WEEKS ULTRASOUND, TRANSABDOMINAL ENDOVAGINAL COMPARISON: None. INDICATIONS: Pelvic pressure TECHNIQUE: Transabdominal and endovaginal pelvic ultrasound examinations were performed. FINDINGS: GESTATIONAL SAC: Present and normal appearing. POLE: Not identified, likely due to early to visualize. YOLK SAC: Present. CARDIAC ACTIVITY: Not identified UTERUS: Normal. ADNEXAE/OVARIES: 2.6 cm right adnexal cyst is present. CUL-DE-SAC: Normal. CERVICAL LENGTH: N/A CLINICAL AGE: 4 weeks 3 days SONOGRAPHIC AGE: Too early to assess with certainty. PLACENTA: Unable to visualize due to age. AMNIOTIC FLUID VOLUME: Normal for age. OTHER: Negative. CONCLUSION: 1. Intrauterine gestational sac is identified. pole is not demonstrated at this time, likely to early to visualize. Followup evaluation is recommended.. 2. A 2.6 cm right adnexal cyst is present. Dictated by: Nazanin Tomas MD on 05/31/2018 at 9:01 Approved by: Nazanin Tomas MD on 05/31/2018 at 9:01 OB ENDO VAGINAL Observed: 05/29/2018 Status: F Source: [place] 2:05 AM [place] [address] Patient: LUIS LEONE Phone#: : [phone] Age: 22 Gender: F Pt. Type: ER Account: [id number] Location: 052 Ordering: SASCHA REYNOSOFIELD Exam Date: 05/29/2018/1:24 Family Phys: VIJAYA WASHINGTONAMPBOUBACAR Charge Code: [id number] Physician: DR. CODIE HILL [place] Order #: [id number] DLP Dose#: PROCEDURE: OB INITIAL <14 WEEKS ULTRASOUND, TRANSABDOMINAL ENDOVAGINAL COMPARISON: None. INDICATIONS: Pelvic pressure TECHNIQUE: Transabdominal and endovaginal pelvic ultrasound examinations were performed. FINDINGS: GESTATIONAL SAC: Present and normal appearing. POLE: Not identified, likely due to early to visualize. YOLK SAC: Present. CARDIAC ACTIVITY: Not identified UTERUS: Normal. ADNEXAE/OVARIES: 2.6 cm right adnexal cyst is present. CUL-DE-SAC: Normal. CERVICAL LENGTH: N/A CLINICAL AGE: 4 weeks 3 days SONOGRAPHIC AGE: Too early to assess with certainty. PLACENTA: Unable to visualize due to age. AMNIOTIC FLUID VOLUME: Normal for age. OTHER: Negative. CONCLUSION: 1. Intrauterine gestational sac is identified. pole is not demonstrated at this time, likely to early to visualize. Followup evaluation is recommended.. 2. A 2.6 cm right adnexal cyst is present. Dictated by: Nazanin Tomas MD on 05/31/2018 at 9:01 Approved by: Nazanin Tomas MD on 05/31/2018 at 9:01 PREG SERUM QUANT Collected: 05/29/2018 Status: F Source: [facility] 12:36 AM [facility] REPOSITORY TYPE CODE TESTS RESULT OUT OF REFERENCE UNITS RANGE LAB HCG mIU/mL QUANTITATI VE(LOINC) HCG QUANTITATIVE 1046.51 Result Comment: Reference Range: Male: <5 Female: Non: <5 1 - 7 days : 5 - 50 1 - 2 weeks: 50 - 500 2 - 3 weeks: 100 - 5000 3 - 4 weeks: 500 - 10,000 4 - 5 weeks: 1000 - 50,000 5 - 6 weeks: 10,000 - 100,000 6 - 8 weeks: 15,000 - 200,000 2 - 3 months: 10,000 - 100,000 2ND TRIMESTER 3000-50,000 3RD TRIMESTER 1000-50,000 Performed By: #### [id number] #### [facility],[address] [place] [address] URINALYSIS WITH Collected: 05/28/2018 Status: F Source: [facility] MICROSCOPY 9:42 PM [facility] REPOSITORY TYPE CODE TESTS RESULT OUT OF REFERENCE UNITS RANGE LAB URINALYSIS WITH MICROSCOPY(LOIN C) URINALYSIS WITH MICROSCOPY Result Comment: URINALYSIS LAB Specimen Type(LOINC) Specimen Type Void LAB Color(LOINC) NORMAL: YELLOW Color neva LAB Clarity(LOINC) NORMAL: CLEAR Clarity clear LAB ph(LOINC) NORMAL: 5.0-8.0 ph 6.5 LAB Protein(LOINC) NORMAL: Abnormal NEGATIVE Protein 30 LAB Glucose(LOINC) NORMAL: NORMAL Glucose NORM LAB Ketone(LOINC) NORMAL: Abnormal NEGATIVE Ketone 5 LAB Bilirubin(LOINC) NORMAL: NEGATIVE Bilirubin NEG LAB Blood(LOINC) NORMAL: Abnormal NEGATIVE Blood 10 LAB Urobilinog(LOINC) NORMAL: NORMAL Urobilinog NORM LAB Sp [place](LOINC) NORMAL: 1.010-1.030 Sp [place] 1.025 LAB Nitrite(LOINC) NORMAL: NEGATIVE Nitrite NEG LAB Leukocytes(LOINC) NORMAL: Abnormal NEGATIVE Leukocytes 25 Result Comment: URINE MICROSCOPIC LAB Wbc(LOINC) 0-5 / hpf Wbc NONE LAB Rbc(LOINC) 0-3 / hpf Rbc 0-5 LAB Casts(LOINC) Casts NONE LAB Crystals(LOINC) Crystals SEE BELO LAB Calcium Ox(LOINC) NORMAL: NONE Calcium Ox 2+ LAB Amorphous(LOINC) Amorphous NONE LAB Bacteria(LOINC) Bacteria TRACE LAB Epi Cells(LOINC) Epi Cells OCC LAB Mucous(LOINC) Mucous NONE LAB Yeast(LOINC) Yeast NONE Performed By: #### [id number] #### [facility],[address] [place] [address] URINE Collected: 05/28/2018 Status: F [facility] REPOSITORY TYPE CODE TESTS RESULT OUT OF REFERENCE UNITS RANGE LAB NEGATIVE UR(LOINC) UR POSITIVE LAB INTERNAL QC(LOINC) INTERNAL QC PASS LAB EXTERNAL QC DONE?(LOINC) EXTERNAL QC YES DONE? Performed By: #### [id number] #### [place] [address] CNPTOUTREAAYAN Observed: 05/18/2018 Status: COMPLETED Source: [place] 12:00 AM [facility] REPOSITORY Patient Outreach (INTMWH) LUIS LEONE ([id number]) 1995 F Date Time Provider Department 05/18/18 VIJAYA DAY [facility] During your visit today, we recorded the following information about you: Allergies As of Date: 05/18/2018 Noted Allergy Reaction YL (METRONIDAZOLE HCL) 12/25/2017 2 - Rash 9 - Itching Date Reviewed: 01/21/2018 Reviewed by: Zenia Ansari RN - Fully Assessed Visit Diagnosis:Medication management [Z79.899] Order(s):HGB A1C [[id number]] Order #: [id number] FUTURE Prescriptions as of 05/18/2018 Sig: IPRATROPIUM BROMIDE 0.02 % SO* Use 2.5 mL via nebulizer four* BECLOMETHASONE DIPROPIONATE 8* Inhale 1 Puff as instructed t* RANITIDINE 150 MG TABLET Take 1 tablet by mouth twice * X CETIRIZINE 10 MG TABLET Take 1 tablet by mouth once d* X CLOMIPHENE CITRATE 50 MG TABL* 250 mg oral dose Cycle days 3* X CRANBERRY EXTRACT 500 MG CAPS* Take 1 capsule by mouth once * X FLUOXETINE 20 MG CAPSULE Take 1 capsule by mouth once * X IBUPROFEN 800 MG TABLET Take 1 tablet by mouth every * X LABETALOL 200 MG TABLET Take 1 tablet by mouth twice * X PSYLLIUM SEED (SUGAR) ORAL PO* Take 3 Tablespoonsful by mout* X METFORMIN ER 750 MG TABLET,EX* Take 1 tablet by mouth twice * X MONTELUKAST 10 MG TABLET Take 1 tablet by mouth daily * X MUPIROCIN 2 % TOPICAL OINTMENT Apply 1 application to affect* X PROGESTERONE MICRONIZED 200 M* Take 1 capsule by mouth daily* PROAIR HFA 90 MCG/ACTUATION A* X AMLODIPINE 5 MG TABLET X VITAMIN D2 50,000 UNIT CAPSULE X NORETHINDRONE (CONTRACEPTIVE)* X CLEARLAX 17 GRAM/DOSE ORAL PO* X SPIRONOLACTONE 100 MG TABLET Problem List As Of Date 05/18/2018 Noted Resolved Dysuria [R30.0] INVALID FOR* Encounter Status:Closed by CYNTHIA DAVIDSON on 08/13/18 SERUM QUAL Collected: 04/06/2018 Status: F Source: [facility] 10:40 AM [facility] REPOSITORY TYPE CODE TESTS RESULT OUT OF REFERENCE UNITS RANGE LAB NEGATIVE SER(LOINC) SER NEGATIVE LAB INTERNAL QC(LOINC) INTERNAL QC PASS LAB EXTERNAL QC DONE?(LOINC) EXTERNAL QC YES DONE? Performed By: #### [id number] #### [facility],[address] [place] [address] CBC Collected: 03/04/2018 Status: F Source: [facility] 10:55 PM [facility] REPOSITORY TYPE CODE TESTS RESULT OUT OF RANGE REFERENCE UNITS LAB CBC(LOINC) CBC Result Comment: CBC-COMPLETE BLOOD COUNT LAB WBC(LOINC) 4.5 - 10.8 x 10EE3/UL WBC 10.7 LAB RBC(LOINC) 4.10 - x 10EE6/UL 5.30 RBC 4.66 LAB HEMOGLOBIN(LOINC) 12.0 - g/dl 16.0 HEMOGLOBIN 13.6 LAB HEMATOCRIT(LOINC) 34.0 - % 46.0 HEMATOCRIT 40.3 LAB MCV(LOINC) 80 - 99 fl MCV 87 LAB MCH(LOINC) 27 - 33 pg MCH 29 LAB MCHC(LOINC) 32 - 36 X10 3 MCHC 34 LAB RDW/CV(LOINC) 12.0 - % 15.6 RDW/CV 13.0 LAB PLATELET(LOINC) 150 - 450 x10EE3/UL PLATELET 341 LAB MPV(LOINC) 6.6 - 10.5 fl MPV 8.5 Result Comment: AUTOMATED DIFFERENTIAL LAB NEUT %(LOINC) 46.0 - 76.0 % NEUT % 50.9 LAB LYMPH %(LOINC) 20.0 - 45.0 % LYMPH % 37.3 LAB MONOS %(LOINC) 0.0 - 10.0 % MONOS % 7.8 LAB EO %(LOINC) 0.0 - 7.0 % EO % 3.1 LAB BASO %(LOINC) 0.0 - 2.0 % BASO % 0.9 LAB Lymph #(LOINC) 0.80 - 2.80 x10EE3/U L Lymph # High 4.00 LAB Neut #(LOINC) 1.50 - 7.10 x10EE3/U L Neut # 5.40 LAB [place] #(LOINC) 0.20 - 1.00 x10EE3/U L [place] # 0.80 LAB EO #(LOINC) 0.00 - 0.50 x10EE3/U L EO # 0.30 LAB Baso #(LOINC) 0.00 - 0.10 x10EE3/U L Baso # 0.10 LAB MANUAL DIFF(LOINC) MANUAL DIFF N/A LAB MORPHOLOGY(LOINC ) MORPHOLOGY N/A Result Comment: {CD] Performed By: #### [id number] #### [place] [id number] PREG SERUM QUANT Collected: 03/04/2018 Status: F Source: [facility] 10:55 PM [facility] REPOSITORY TYPE CODE TESTS RESULT OUT OF REFERENCE UNITS RANGE LAB HCG mIU/mL QUANTITATI VE(LOINC) HCG QUANTITATIVE <0.5 Result Comment: Reference Range: Male: <5 Female: Non: <5 1 - 7 days : 5 - 50 1 - 2 weeks: 50 - 500 2 - 3 weeks: 100 - 5000 3 - 4 weeks: 500 - 10,000 4 - 5 weeks: 1000 - 50,000 5 - 6 weeks: 10,000 - 100,000 6 - 8 weeks: 15,000 - 200,000 2 - 3 months: 10,000 - 100,000 2ND TRIMESTER 3000-50,000 3RD TRIMESTER 1000-50,000 Performed By: #### [id number] #### [place] [id number] T4-FREE (FREE Collected: 03/04/2018 Status: F Source: [facility] [place] THYROXINE) 10:55 PM [facility] REPOSITORY TYPE CODE TESTS RESULT OUT OF RANGE REFERENCE UNITS LAB T4 0.61 - 1.12 ng/dl FREE(LOINC) T4 FREE 0.73 Result Comment: *SPECIMENS FROM PATIENTS WHO ARE UNDERGOING BIOTIN THERAPY AND/OR INGESTING BIOTIN SUPPLEMENTS MAY HAVE FALSE HIGH RESULTS. Performed By: #### [id number] #### [address] [address] BB TYPE & SCREEN Collected: 03/04/2018 Status: F Source: [facility] [place] 10:55 PM [facility] REPOSITORY TYPE CODE TESTS RESULT OUT OF REFERENCE UNITS RANGE LAB BB TYPE & SCREEN(LOIN C) BB TYPE & SCREEN Result Comment: TYPE, Rh, AND SCREEN LAB ABO(LOINC) ABO O LAB Rh(LOINC) Rh POS LAB ANTIBODY SCR(LOINC) ANTIBODY negative SCR Performed By: #### [id number] #### [address] [address] VITAMIN D, 25 Collected: 03/04/2018 Status: F Source: [facility] [place] HYDROXY 10:55 PM [facility] REPOSITORY TYPE CODE TESTS RESULT OUT OF RANGE REFERENCE UNITS LAB VitD(LOINC) 30.00 - 100 ng/mL Low VitD 23.03 Result Comment: 25-OHD3 indicates both endogenous production and supplementation. 25-OHD2 is an indicator of exogenous sources, such as diet or supplementation. Therapy is based on measurement of Total 25-OHD, with levels <20 ng/mL indicative of Vitamin D deficiency, while levels between 20 ng/mL and 30 ng/mL suggest insufficiency. Optimal levels are >=30ng/mL. Vitamin D, 25-OH D3 Not Established Vitamin D, 25-OH D2 Not Established Performed By: #### [id number] #### [address] [address] TSH Collected: 03/04/2018 Status: F Source: [facility] [place] 10:55 [facility] REPOSITORY TYPE CODE TESTS RESULT OUT OF RANGE REFERENCE UNITS LAB TSH(LOINC) 0.34 - 5.60 uIU/ml TSH 3.05 Performed By: #### [id number] #### [address] [address] HEPATIC FUNCTION Collected: 03/04/2018 Status: F Source: [facility] [place] PANEL 10:55 PM [facility] REPOSITORY TYPE CODE TESTS RESULT OUT OF REFERENCE UNITS RANGE LAB HEPATIC FUNCTION PANEL(LOINC) HEPATIC FUNCTION PANEL Result Comment: HEPATIC FUNCTION PROFILE LAB ALBUMIN(LOINC) 3.4 - 4.8 g/dL ALBUMIN 3.8 LAB ALK PHOS(LOINC) 38 - 126 U/L ALK PHOS 86 LAB AST/SGOT(LOINC) 13 - 39 U/L High AST/SGOT 80 LAB ALT/SGPT(LOINC) 8 - 35 U/L ALT/SGPT 23 LAB TOTAL BILI(LOINC) 0.0 - 1.5 mg/dl TOTAL BILI 0.2 LAB DIRECT BILI(LOINC) 0.0 - 0.1 mg/dl DIRECT BILI 0.1 LAB TOTAL PROTEIN(LOINC) 6.4 - 8.3 g/dl TOTAL PROTEIN 7.2 Performed By: #### [id number] #### [facility],[address] [place] [address] RENAL FUNCTION PANEL Collected: 03/04/2018 Status: F Source: [facility] WITH EGFR 10:55 PM [facility] REPOSITORY TYPE CODE TESTS RESULT OUT OF REFERENCE UNITS RANGE LAB RENAL FUNCTION PANEL WITH eGFR(LOINC) RENAL FUNCTION PANEL WITH eGFR Result Comment: RENAL FUNCTION PANEL LAB SODIUM(LOINC) 136 - 145 mmol/l SODIUM 137 LAB POTASSIUM(LOINC) 3.5 - 5.1 mmol/L POTASSIUM 3.5 LAB CHLORIDE(LOINC) 98 - 107 mmol/L CHLORIDE 102 LAB GLUCOSE(LOINC) 74 - 106 mg/dl GLUCOSE 100 LAB BUN(LOINC) 6 - 20 mg/dl BUN 10 LAB CREATININE(LOINC) 0.6 - 1.2 mg/dl CREATININE 0.6 LAB CALCIUM(LOINC) 8.6 - mg/dl 10.2 CALCIUM 9.5 LAB ALBUMIN(LOINC) 3.4 - 4.8 g/dL ALBUMIN 3.8 LAB B/C RATIO(LOINC) 0 - 30 ratio B/C RATIO 17 LAB CO2(LOINC) 21.0 - mmol/L 31.0 CO2 22.7 LAB PHOSPHORUS(LOINC) 2.7 - 4.5 mg/dl PHOSPHORUS 3.9 LAB AGE(LOINC) years AGE 22 LAB eGFR(LOINC) 60 - 999 ML/MINUTE eGFR >60 LAB eGFR(AA)(LOINC) 60 - 999 ML/MINUTE eGFR(AA) >60 Result Comment: ACCORDING TO THE NATIONAL KIDNEY DISEASE EDUCATION PROGRAM(NKDE), A NORMAL eGFR IS A VALUE GREATER THAN OR EQUAL TO 60 ML/MIN/1.73 SQ METERS. CHRONIC KIDNEY DISEASE: <60mL/MIN/1.73 SQ METERS KIDNEY FAILURE: <15mL/MIN/1.73 SQ METERS THIS TEST SHOULD ONLY BE USED FOR PATIENTS 18 YEARS OF AGE AND OLDER. Performed By: #### [id number] #### [facility],[address] [facility] [address] DHEA-SULFATE [QUEST] Collected: 03/04/2018 Status: F [facility] PM [facility] REPOSITORY TYPE CODE TESTS RESULT OUT OF RANGE REFERENCE UNITS LAB DHEA-SULFAT E [QUEST](KARLEE NC) DHEA-SULFATE [QUEST] Result Comment: _DHEA-SULFATE_ DHEA-SULFATE Reported: 03/07/2018 13:16 Status=F TEST RESULT FLAG RANGE UNITS DHEA-SULFATE 236 18-391 mcg/dL 03/07/18.1328.rfl.COMPLETE.AMRR .2191-5 Test Performed by [employer], [facility], [address] [place] [address] Anderson Pringle M.D., Ph.D., Director of Laboratories , [facility] [id number] Performed By: #### [id number] #### [facility],[address] [facility] [address] ESTRADIOL Collected: 03/04/2018 Status: F Source: [place] 10:55 PM [facility] REPOSITORY TYPE CODE TESTS RESULT OUT OF REFERENCE UNITS RANGE LAB ESTRADIOL( LOINC) ESTRADIOL Result Comment: _ESTRADIOL_ ESTRADIOL Reported: 03/08/2018 09:21 Status=F TEST RESULT FLAG RANGE UNITS ESTRADIOL 32 pg/mL 03/08/18.0940.[facility] .2243-4 Unable to flag abnormal result(s), please refer to reference range(s) below: Females: Follicular Phase: 19 - 144 pg/mL Mid-Cycle: 64 - 357 pg/mL Luteal Phase: 56 - 214 pg/mL Post-Menopausal: <= 31 pg/mL Reference range established on post-pubertal patient population. No pre-pubertal reference range established using this assay. For any patients for whom low Estradiol levels are anticipated (e.g. males, pre-pubertal children, and hypogonadal/post-menopausal females), the [employer] Estradiol, Ultrasensitive, LCMSMS assay is recommended (order code 42277). Please note: Patients being treated with the drug fulvestrant [Faslodex(R)] have demonstrated significant interference in immunoassay methods for estradiol measurement. The cross reactivity could lead to falsely elevated estradiol test results leading to an inappropriate clinical assessment of estrogen status. [employer] order code 93037-Rspzhuide, Ultrasensitive LC/MS/MS demonstrates negligible cross reactivity with fulvestrant. Test Performed by [facility], [employer], [address] [place] [address], [place] [address] Anderson Pringle M.D., Ph.D., Director of Laboratories , CLIA [id number] Performed By: #### [id number] #### [facility],[address] [place] [address] RUBELLA IMMUNE Collected: 03/04/2018 Status: F Source: [facility]IVASDION [facility]ULL[facility]KT STATUS [QUEST] 10:55 PM [facility] REPOSITORY TYPE CODE TESTS RESULT OUT OF REFERENCE UNITS RANGE LAB RUBELLA IMMUNE STATUS [QUEST](LOINC ) RUBELLA IMMUNE STATUS [QUEST] Result Comment: _RUBELLA IMMUNE STATUS_ RUBELLA ANTIBODY (IGG) Reported: 03/08/2018 09:28 Status=F TEST RESULT FLAG RANGE UNITS RUBELLA ANTIBODY (IGG) 1.99 >=1.00 Index 03/08/18.0940.rfl.COMPLETE.AMRR .5334-8 INDEX INTERPRETATION < 0.90 Not consistent with Immunity 0.90 - 0.99 Equivocal > or = 1.00 Consistent with Immunity The presence of Rubella IgG antibody suggests immunization or past or current infection with Rubella virus. Test Performed by [employer], [facility], [address] [place] [address] Anderson Pringle M.D., Ph.D., Director of Laboratories , [facility] [id number] Performed By: #### [id number] #### [facility],[address] [place] [address] 17- HYDROXYPROGESTERONE Collected: Status: F Source: [facility] [QUEST] 03/04/2018 10:55 PM [facility] REPOSITORY TYPE CODE TESTS RESULT OUT OF REFERENCE UNITS RANGE LAB 17- HYDROXYPROGESTERONE 17- [QUEST](LOINC) HYDROXYPROGESTERONE [QUEST] Result Comment: _[id number]_ 17 HYDROXYPROGESTERONE, LC/MS/MS Reported: 03/08/2018 12:54 Status=F TEST RESULT FLAG RANGE UNITS 17-OHPROGESTERONE, 10 ng/dL 03/08/18.1306.rfl.COMPLETE.AMRR .1668-3 LC/MS/MS Unable to flag abnormal result(s), please refer to reference range(s) below: Adult Female Reference Ranges for 17-Hydroxyprogesterone, LC/MS/MS: Follicular Phase: 185 ng/dL or less Luteal Phase: 285 ng/dL or less Postmenopausal: 45 ng/dL or less : First Trimester: 78 - 457 ng/dL Second Trimester: 90 - 357 ng/dL Third Trimester: 144 - 578 ng/dL This test was developed and its analytical performance characteristics have been determined by [employer] [place], [place]. It has not been cleared or approved by the U.S. Food and Drug Administration. This assay has been validated pursuant to the CLIA regulations and is used for clinical purposes. Test Performed by Naif Yañez, [employer] [facility], [address] [place] [address] Anderson Pringle M.D., Ph.D., Director of Laboratories , CLIA [id number] Performed By: #### [id number] #### [facility],[address] [place] [address] TESTOSTERONE, TOTAL Collected: 03/04/2018 Status: F Source: [facility] 10:55 PM [facility] REPOSITORY TYPE CODE TESTS RESULT OUT OF RANGE REFERENCE UNITS LAB TESTOSTERON E, TOTAL(LOINC ) TESTOSTERONE , TOTAL Result Comment: _TESTOSTERONE, TOTAL_ TESTOSTERONE,TOTAL,LC/MS/MS Reported: 03/09/2018 01:14 Status=F TEST RESULT FLAG RANGE UNITS TESTOSTERONE,TOTAL,LC/MS/ 59 H 2-45 ng/dL 03/09/18.0126.rfl.COMPLETE.AMRR .2986-8 MS Please note: This specimen was assayed by LCMSMS. LCMSMS is more sensitive and specific for female and pediatric specimens. Test Performed by [facility], [employer], [address] [place] [address] Anderson Pringle M.D., Ph.D., Director of Laboratories , [facility] [id number] Performed By: #### [id number] #### [facility],[address] [place] [address] LUTEINIZING HORMONE LH Collected: 03/04/2018 Status: F Source: [facility] 10:55 PM [facility] REPOSITORY TYPE CODE TESTS RESULT OUT OF REFERENCE UNITS RANGE LAB LUTEINIZING HORMONE LH(LOINC) LUTEINIZING HORMONE LH Result Comment: _LUTEINIZING HORMONE LH_ LH Reported: 03/09/2018 06:20 Status=F TEST RESULT FLAG RANGE UNITS LH 6.3 mIU/mL 03/09/18.0632.rflAMNA.[facility] .67131-4 Unable to flag abnormal result(s), please refer to reference range(s) below: Adult Female reference ranges for LH: Follicular Phase: 1.9-12.5 mIU/mL Mid-Cycle Peak: 8.7-76.3 mIU/mL Luteal Phase: 0.5-16.9 mIU/mL Postmenopausal: 10.0-54.7 mIU/mL Test Performed by Naif Yañez, [facility], [address] [place] [address] Anderson Pringle M.D., Ph.D., Director of Laboratories , [facility] [id number] Performed By: #### [id number] #### [facility],[address] [place], [place] [id number] PROLACTIN Collected: 03/04/2018 Status: F Source: [facility] 10:55 PM [facility] REPOSITORY TYPE CODE TESTS RESULT OUT OF REFERENCE UNITS RANGE LAB PROLACTIN( LOINC) PROLACTIN Result Comment: _PROLACTIN_ PROLACTIN Reported: 03/09/2018 06:20 Status=F TEST RESULT FLAG RANGE UNITS PROLACTIN 13.7 ng/mL 03/09/18.0632.[facility] hospitalAMNA.AMRR .2842-3 Unable to flag abnormal result(s), please refer to reference range(s) below: Reference range(s): Adult Males (>18 years): 2.0 - 18.0 ng/mL Adult Females (>18 years): - Non-: 3.0 - 30.0 ng/mL - : 10.0 - 209.0 ng/mL - Post-Menopausal: 2.0 - 20.0 ng/mL Test Performed by [employer], [facility], [address] [place] [address] Anderson Pringle M.D., Ph.D., Director of Laboratories , [facility] [id number] Performed By: #### [id number] #### [facility],[address] [place] [address] PROGESTERONE, SERUM Collected: 03/04/2018 Status: F Source: [facility] [QUEST] 10:55 PM [facility] REPOSITORY TYPE CODE TESTS RESULT OUT OF REFERENCE UNITS RANGE LAB PROGESTERONE , SERUM [QUEST](CHETAN C) PROGESTERONE , SERUM [QUEST] Result Comment: _PROGESTERONE SERUM_ PROGESTERONE Reported: 03/09/2018 06:20 Status=F TEST RESULT FLAG RANGE UNITS PROGESTERONE 0.6 ng/mL 03/09/18.0632.Avel.[facility] .2839-9 Unable to flag abnormal result(s), please refer to reference range(s) below: Female: Follicular Phase <1.0 ng/mL Luteal Phase 2.6 - 21.5 ng/mL Post Menopausal <0.5 ng/mL : 1st Trimester 4.1 - 34.0 ng/mL 2nd Trimester 24.0 - 76.0 ng/mL 3rd Trimester 52.0 -302.0 ng/mL Test Performed by [employer], [facility], [address] [place] [address] Anderson Pringle M.D., Ph.D., Director of Laboratories , [facility] [id number] Performed By: #### [id number] #### [facility],[address] [place] [address] VARICELLA ZOSTER AB Collected: 03/04/2018 Status: F Source: [facility] (IGG) [QUEST] 10:55 PM [facility] REPOSITORY TYPE CODE TESTS RESULT OUT OF REFERENCE UNITS RANGE LAB VARICELLA ZOSTER AB (IGG) [QUEST](LOINC) VARICELLA ZOSTER AB (IGG) [QUEST] Result Comment: _VARICELLA ZOSTER AB (IGG)_ VARICELLA-ZOSTER VIRUS ANTIBODY (IGG) Reported: 03/09/2018 08:29 Status=F TEST RESULT FLAG RANGE UNITS VZV ANTIBODY (IGG) 908.70 >=165.00 Index 03/09/18.0841.[facility] .5403-1 A positive result indicates that the patient has antibody to VZV but does not differentiate between an active or past infection. The clinical diagnosis must be interpreted in conjunction with the clinical signs and symptoms of the patient. This assay reliably measures immunity due to previous infection but may not be sensitive enough to detect antibodies induced by vaccination. Thus, a negative result in a vaccinated individual does not necessarily indicate susceptibility to VZV infection. Index Interpretation ===== < 135.00 Negative - Antibody not detected 135.00 - 164.99 Equivocal > or = 165.00 Positive - Antibody detected Test Performed by [employer], [employer] [facility], [address] [place] [address] Anderson Pringle M.D., Ph.D., Director of Laboratories , [facility] [id number] Performed By: #### [id number] #### [facility],[address] [place], [place] [id number] ANTIMULLERIAN HORMONE Collected: 03/04/2018 Status: F Source: [facility] [QUEST] 10:55 PM [facility] REPOSITORY TYPE CODE TESTS RESULT OUT OF REFERENCE UNITS RANGE LAB ANTIMULLERIAN HORMONE [QUEST](LOINC) ANTIMULLERIAN HORMONE [QUEST] Result Comment: _ANTIMULLERIAN HORMONE ASSESSR_ ANTI-MULLERIAN HORMONE ASSESSR(TM) Reported: 03/10/2018 11:21 Status=F TEST RESULT FLAG RANGE UNITS ANTI-MULLERIAN HORMONE see below 03/10/18.1132.rfl.COMPLETE.[facility] .91972-8 ASSESSR(TM) TESTS RESULTS--------UNITS--REF. RANGE--- AMH/MIS 1.23 ng/mL REFERENCE RANGES for AMH/MIS: Age Expected range (ng/mL) Female: <14 yrs 0.49-3.15 14-19 yrs 1.28-16.37 20-29 yrs 0.76-11.34 30-39 yrs <9.24 40-49 yrs <4.50 > 49 yrs <0.45 Male: <1 yr 37.20-345.67 1-6 yrs 59.54-320.65 7-11 yrs 40.99-203.67 12-17 yrs <128.29 > 17 yrs 1.15-15.23 For more information on this test, go to: http://education.[employer]/faq/FEZ816 RESULTS RECEIVED 03/10/18 Reference lab accession: [id number] Test performed by [employer] [address] [place] [id number] Machine Milker: Lucio Gorman M.D.,Ph.D. Test Reported by [facility], [employer], [address] [place] [address] Anderson Pringle M.D., Ph.D., Director of Laboratories , CLIA [id number] Performed By: #### [id number] #### [facility],[address] [place] [address] FSH [QUEST] Collected: 03/04/2018 Status: F Source: [facility] [place] 10:55 PM [facility] REPOSITORY TYPE CODE TESTS RESULT OUT OF RANGE REFERENCE UNITS LAB FSH [QUEST](KARLEE [place]) FSH [QUEST] Result Comment: _FSH_ FSH Reported: 03/11/2018 07:04 Status=F TEST RESULT FLAG RANGE UNITS FSH 11.1 mIU/mL 03/11/18.0715.rfl.COMPLETE.AMRR .99820-5 Unable to flag abnormal result(s), please refer to reference range(s) below: Adult female reference ranges for FSH: Follicular Phase: 2.5-10.2 mIU/mL Mid-Cycle Peak: 3.1-17.7 mIU/mL Luteal Phase: 1.5-9.1 mIU/mL Postmenopausal: 23.0-116.3 mIU/mL Test Performed by [employer], [facility], [address] [place] [address] Anderson Pringle M.D., Ph.D., Director of Laboratories , CLIA [id number] Performed By: #### [id number] #### [facility],[address] [place], [place] [id number] ABDOMEN 1 VIEW Observed: 03/02/2018 Status: F [facility] [address] [place], [place] [address] Patient: LUIS LEONE. Phone#: : [phone] Age: 22 Gender: F Pt. Type: Out Account: [id number] Location: [facility] Ordering: TREASURE AIKEN Exam Date: 03/02/2018/16:34 Family Phys: ROD Lay IRAHETA Charge Code: [id number] Physician: [place] Order #: [id number] DLP Dose#: PROCEDURE: ABDOMEN 1 VIEW COMPARISON: [facility], XR, ABDOMEN 1 VIEW, 01/22/2018, 17:15. INDICATIONS: Kidney stones FINDINGS: BOWEL GAS PATTERN: Normal. No abnormal dilation or deviation. CALCIFICATIONS: A 2 mm calcification is present in the left pelvis unchanged in position since prior exam no new calcifications in the distribution of the kidneys or ureters. OTHER: Negative. No abnormal gaseous collections. CONCLUSION: 1. 2 mm calcification left pelvis is stable in position since prior exam. Dictated by: Nazanin Tomas MD on 03/02/2018 at 16:57 Approved by: Nazanin Tomas MD on 03/02/2018 at 16:57 EMERGENCY REPORT Observed: 01/23/2018 Status: F [facility] 8:28 AM [facility] EMERGENCY ROOM REPORT NAME ACCOUNT SEX AGE ADMIT DISCHARGE TYPE MED. RECORD# NUMBER DATE SULEMA [id number] F 01/16/18 01/16/18 ER LUIS Moeller [id number] ROOM: DATE OF : 1995 PHYSICIAN NO: [id number] PHYSICIAN: ELVA BLAKE CHIEF COMPLAINT: Fell, injured back. HISTORY OF PRESENT ILLNESS: The patient is a 22-year-old female, presents to the emergency room, states she slipped on wet floor, fell backwards, landing on her butt and has lower back pain, mainly on her right side of her lumbar area. No numbness, tingling, in the extremities. Pain increased with range of motion. She also has lower abdominal pain since she had procedure done for uterus and tubes and had that done by Dr. Velasquez. Was told that she would feel better in a couple days. She wound not have any pain after that and she is still having pain and this procedure was done 3 or 4 days ago and had that checked. Does not have any vaginal discharge. No trouble urinating. She has been on doxycycline since the procedure. Has no vomiting or diarrhea. PAST MEDICAL HISTORY: No other pertinent history. MEDICATIONS: See nurse's notes. ALLERGIES: Flagyl. FAMILY HISTORY: No pertinent history. SOCIAL HISTORY: Patient lives with family. REVIEW OF SYSTEMS: As per assessment sheet. PHYSICAL EXAMINATION: She is well appearing, alert, awake, color is good. Vital Signs: Normal except blood pressure 141/87. Head is normocephalic, face no edema or swelling. Eyes: No icterus or injection of conjunctivae. Ears: No drainage, no erythema. Tympanic membranes are translucent. Chest: Symmetrical. No sternal rib retractions, not using accessory muscles. Heart: Regular rhythm, no murmurs or rub audible. Lungs: Clear to auscultation, no rales, rhonchi or wheezes. Abdomen: Soft. There is lower abdominal tenderness in midline, but no guarding, no rebound, no mass, no organomegaly palpable. Back: Tender in the right paraspinal lumbar muscles. No deformity, no ecchymosis. No swelling noted. MEDICAL DECISION MAKING: The trauma does not appear to be significant. Patient able to sit up. Does not appear to have significant discomfort. Her abdominal pain does Page 1 of 2 ULIS LEONE Emergency Room Report not appear to be significant either. Not more than expected after a procedure injecting dye through the uterus and tubes. Does not have any fever. I did not see any reason to do any specific studies for that. DIAGNOSTIC DATA: We did get urinalysis which was normal and test which was negative. Got an x-ray of the lumbar spine, which was read by radiologist, showed a minimal retrolisthesis of L5 over S1. No evidence of acute fractures or dislocation. EMERGENCY DEPARTMENT COURSE AND TREATMENT: The patient was instructed to avoid heavy lifting. 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 Gave her a prescription for Flexeril. She is to follow up with Dr. Velasquez regarding her problems and she is to return if needed. CONDITION ON DISCHARGE: Stable. DIAGNOSIS: D: Elva Blake MD TD: JOB #: [id number] Transcribed by: Electronically signed by: E-Sign Elva Blake M.D. 01/23/18 08:27 Page 2 of 2 LUIS LEONE Emergency Room Report PROGESTERONE, SERUM Collected: 01/22/2018 Status: F Source: [facility] [place] [QUEST] 6:05 PM [facility] REPOSITORY TYPE CODE TESTS RESULT OUT OF REFERENCE UNITS RANGE LAB PROGESTERONE , SERUM [QUEST](LOIN C) PROGESTERONE , SERUM [QUEST] Result Comment: _PROGESTERONE SERUM_ PROGESTERONE Reported: 01/26/2018 05:49 Status=F TEST RESULT FLAG RANGE UNITS PROGESTERONE 10.3 ng/mL 01/26/18.0600.rfl.COMPLETE.AMRR .[id number] Unable to flag abnormal result(s), please refer to reference range(s) below: Female: Follicular Phase <1.0 ng/mL Luteal Phase 2.6 - 21.5 ng/mL Post Menopausal <0.5 ng/mL : 1st Trimester 4.1 - 34.0 ng/mL 2nd Trimester 24.0 - 76.0 ng/mL 3rd Trimester 52.0 -302.0 ng/mL Test Performed by [facility], [facility], [address] [place] [id number] Anderson Pringle M.D., Ph.D., Director of Laboratories , SOHAIL [id number] Performed By: #### [id number] #### [facility],[address] [place] [address] ABDOMEN 1 VIEW Observed: 01/22/2018 Status: F Source: [place] 5:31 PM [facility] REPOSITORY [place] [address] Patient: LUIS LEONE Phone#: : [phone] Age: 22 Gender: F Pt. Type: Out Account: [id number] Location: 052 Ordering: TREASURE AIKEN Exam Date: 01/22/2018/17:15 Family Phys: ROD IRAHETA Charge Code: [id number] Physician: [place] Order #: [id number] DLP Dose#: PROCEDURE: ABDOMEN 1 VIEW COMPARISON: [facility], CT, ABDOMEN/PELVIS W/O CON, 01/18/2016, 21:12. [facility], XR, KUB, 12/21/2015, 16:11. INDICATIONS: Kidney stones FINDINGS: BOWEL GAS PATTERN: Normal. No abnormal dilation or deviation. CALCIFICATIONS: There is a calcification measuring 0.2 cm in the course of the distal left ureter OTHER: Density in the right upper quadrant adjacent to the liver margin may represent overlying stool versus indistinct calcifications in the gallbladder. CONCLUSION: 1. Calcification in the region of the distal left ureter, this may represent a ureteral stone versus calcification overlying tissues.. 2. Density in the right upper quadrant adjacent to the liver margin, may represent overlying stool versus indistinct calcifications in gallbladder. Dictated by: Catarina Wooten MD on 01/22/2018 at 18:05 Approved by: Catarina Wooten MD on 01/22/2018 at 18:05 HISTORY PHYSICAL Observed: 01/21/2018 Status: COMPLETED Source: [place] 4:56 PM [facility] REPOSITORY HNO ID: [id number] Author: Pallavi Rucker (Pa) Service: (none) Author Type: Physician [place] Type: HANDP Filed: 01/22/2018 4:26 PM Note Text: [facility] [place] PATIENT INFO: Luis Leone22 year old PCP: Vijaya Day MD Referred by: Vijaya Day MD CHIEF COMPLAINT: UTI HPI: This is a 22 year old female, who has had UTI symptoms , which started in 2017, and involves the Urine Patient states this mild in severity and mild in quality, and is happening after intercourse Aggravating factors: No , Alleviating Factors: No . And the patient denies having Fever, Chills, Rigors, Nausea and Vomiting VOIDING SYMPTOMS: NTF: 1-2 Times Small Amounts DTF: Q 1 HOURS FOS: Good Hesitancy: No Straining: No Intermittency: Yes Urgency: Yes Frequency: Yes Dysuria: Yes Gross Hematuria: No U/A Dipstick Positive Blood - Only No Incomplete Voiding: No Double Voiding: No Post Void Dribbling: Yes Incontinence: No REVIEW OF SYSTEMS: General: General: Well developed, well nourished. No acute distress HEENT: Negative for sore throat, difficulty swallowing. Negative for frequent or significant headaches, changes in vision or hearing. Cardiovascular: No history of cardiovascular symtoms or problems. No history of angina, CHF, MA, cardiac surgery of stents. Respiratory: Negative for current cough, dyspnea. No hx of pneumonia in the past six weeks Gastrointestinal: No history of GERD, PUD, abd pain, difficulty swallowing, GI bleed. Renal: Negative for renal failure Musculoskeletal: Negative for joint pain or swelling, back pain or muscle pain. Skin: Negative for lesions, rash and itching. Psychological: No history of psychiatric symptoms or problems. Neurologic: No history of TIA's, stroke, BARK GRINDER tumor, impaired sensorium, hemiplegia, paraplegia or quadriplegia. No neurological symptoms or problems. Hematology/Oncology: No history of bleeding or clotting disorder. Pt is not taking anti-coagulation or platelet medications. No history of hematological symptoms or problems. Endocrine: No history of endocrinological symtoms or problems No history of DM; has not taken steroids w/in past 30 days. Negative for excessive sweating, thirst or hunger PHYSICAL EXAMINATION: General Appearance/ Constitutional: Well developed, well nourished, and in no apparent distress HEENT: Not examined Neck: Lymph Nodes: Not Examined Cardiac: Normal Breast: Not examined Pulmonary: Ascultation: Normal Effort: Normal GI: Soft and Non-tender Peripheral Vascular: Not examined Extremities: Cyanosis absent and Edema absent Skin: Normal Neurologic: Grossly non-focal and Affect appropriate ADDITIONAL [facility]VIEWNation[facility] HospitalMost recent imaging Most recent labs Obtained information from other person or physician (not in records), [facility] Results for orders placed or performed in visit on 01/21/18 UA DIP, URINE (POC) Result Value Ref Range GLUCOSE UA (POCT) Negative Neg mg/dL BILIRUBIN UA (POCT) Negative Neg KETONE UA (POCT) Negative Neg mg/dL SPECIFIC GRAVITY UA (POCT) 1.020 1.005 - 1.030 HEMOGLOBIN/BLOOD UA (POCT) Negative Neg PH UA (POCT) 7.5 4.5 - 8 PROTEIN UA (POCT) Negative Neg mg/dL UROBILINOGEN UA (POCT) 0.2 Normal(<1.1) E.U./dL NITRITE UA (POCT) Negative Neg LEUKOCYTES UA (POCT) Negative Neg COLOR UA (POCT) Yellow CLARITY UA (POCT) Clear RADIOLOGY: None Risk of complication and/or Morbidity or Mortality: LOW DISEASE SPECIFICITY: Diagnosis: UTI Symptoms Acuity: Chronic Severity: Mild Anatomic Site: Bladder, Laterality: N/A Urethra, Laterality: Not applicable Underlying Condition/Causal Agent: Primary Associated Conditions/Manifestations: N/A IMPRESSION / PLAN: > History of Dysuria > Last Urine Culture was negative > Requested previous cultures > AZO > Urine Culture orders in EPIC if needed > Follow-Up PRN, dropping off urine for culture if needed orders in EPIC I spent approximately 30 minutes in this visit, with more than 50% of the time devoted to patient discussion, counseling, review of records and/or coordination of care. Pallavi Rucker, CATRACHITOS, MT, PA-C CNOV Observed: 01/21/2018 Status: COMPLETED Source: [place] 3:00 PM [facility] REPOSITORY Office Visit (UROLWS) LUIS LEONE ([id number]) 1995 F Date Time Provider Department 01/21/18 3:00 PM PALLAVI RUCKER) UROLWS During your visit today, we recorded the following information about you: Pulse Blood pressure Weight Height 66/minute 140/98 131.5 kg 1.676 m ANSON Parikh 01/22/2018 4:26 PM Signed [facility] [place] PATIENT INFO: Luis Leone22 year old PCP: Vijaya Day MD Referred by: Vijaya Day MD CHIEF COMPLAINT: UTI HPI: This is a 22 year old female, who has had UTI symptoms , which started in 2017, and involves the Urine Patient states this mild in severity and mild in quality, and is happening after intercourse Aggravating factors: No , Alleviating Factors: No . And the patient denies having Fever, Chills, Rigors, Nausea and Vomiting VOIDING SYMPTOMS: NTF: 1-2 Times Small Amounts DTF: Q 1 HOURS FOS: Good Hesitancy: No Straining: No Intermittency: Yes Urgency: Yes Frequency: Yes Dysuria: Yes Gross Hematuria: No U/A Dipstick Positive Blood - Only No Incomplete Voiding: No Double Voiding: No Post Void Dribbling: Yes Incontinence: No REVIEW OF SYSTEMS: General: General: Well developed, well nourished. No acute distress HEENT: Negative for sore throat, difficulty swallowing. Negative for frequent or significant headaches, changes in vision or hearing. Cardiovascular: No history of cardiovascular symtoms or problems. No history of angina, CHF, MA, cardiac surgery of stents. Respiratory: Negative for current cough, dyspnea. No hx of pneumonia in the past six weeks Gastrointestinal: No history of GERD, PUD, abd pain, difficulty swallowing, GI bleed. Renal: Negative for renal failure Musculoskeletal: Negative for joint pain or swelling, back pain or muscle pain. Skin: Negative for lesions, rash and itching. Psychological: No history of psychiatric symptoms or problems. Neurologic: No history of TIA's, stroke, BARK GRINDER tumor, impaired sensorium, hemiplegia, paraplegia or quadriplegia. No neurological symptoms or problems. Hematology/Oncology: No history of bleeding or clotting disorder. Pt is not taking anti-coagulation or platelet medications. No history of hematological symptoms or problems. Endocrine: No history of endocrinological symtoms or problems No history of DM; has not taken steroids w/in past 30 days. Negative for excessive sweating, thirst or hunger PHYSICAL EXAMINATION: General Appearance/ Constitutional: Well developed, well nourished, and in no apparent distress HEENT: Not examined Neck: Lymph Nodes: Not Examined Cardiac: Normal Breast: Not examined Pulmonary: Ascultation: Normal Effort: Normal GI: Soft and Non-tender Peripheral Vascular: Not examined Extremities: Cyanosis absent and Edema absent Skin: Normal Neurologic: Grossly non-focal and Affect appropriate ADDITIONAL DATA REVIEWNationwide Children's HospitalMost recent imaging Most recent labs Obtained information from other person or physician (not in records), [facility] Results for orders placed or performed in visit on 01/21/18 UA DIP, URINE (POC) Result Value Ref Range GLUCOSE UA (POCT) Negative Neg mg/dL BILIRUBIN UA (POCT) Negative Neg KETONE UA (POCT) Negative Neg mg/dL SPECIFIC GRAVITY UA (POCT) 1.020 1.005 - 1.030 HEMOGLOBIN/BLOOD UA (POCT) Negative Neg PH UA (POCT) 7.5 4.5 - 8 PROTEIN UA (POCT) Negative Neg mg/dL UROBILINOGEN UA (POCT) 0.2 Normal(ANDlt;1.1) E.U./dL NITRITE UA (POCT) Negative Neg LEUKOCYTES UA (POCT) Negative Neg COLOR UA (POCT) Yellow CLARITY UA (POCT) Clear RADIOLOGY: None Risk of complication and/or Morbidity or Mortality: LOW DISEASE SPECIFICITY: Diagnosis: UTI Symptoms Acuity: Chronic Severity: Mild Anatomic Site: Bladder, Laterality: N/A Urethra, Laterality: Not applicable Underlying Condition/Causal Agent: Primary Associated Conditions/Manifestations: N/A IMPRESSION / PLAN: ANDgt; History of Dysuria ANDgt; Last Urine Culture was negative ANDgt; Requested previous cultures ANDgt; AZO ANDgt; Urine Culture orders in EPIC if needed ANDgt; Follow-Up PRN, dropping off urine for culture if needed orders in EPIC I spent approximately 30 minutes in this visit, with more than 50% of the time devoted to patient discussion, counseling, review of records and/or coordination of care. Pallavi Rucker, DEBORAH, MT, PA-C Referring Provider: VIJAYA DAY [[id number]] Allergies As of Date: 01/21/2018 Noted Allergy Reaction FLAGYL (METRONIDAZOLE HCL) 12/25/2017 2 - Rash 9 - Itching Date Reviewed: 01/21/2018 Reviewed by: Zenia Ansari RN - Fully Assessed Reason for Visit: Consult [173] Cmt: frequent UTI's Primary Visit Diagnosis:Dysuria [R30.0] Order(s):UA DIP, URINE (POC) [[id number]] Order #: [id number]. #:[id number] URINE CULTURE [SQURCUL] Order #: [id number] Prescriptions as of 01/21/2018 Sig: CETIRIZINE 10 MG TABLET Take 1 tablet by mouth once d* CLOMIPHENE CITRATE 50 MG TABL* 250 mg oral dose Cycle days 3* CRANBERRY EXTRACT 500 MG CAPS* Take 1 capsule by mouth once * FLUOXETINE 20 MG CAPSULE Take 1 capsule by mouth once * IBUPROFEN 800 MG TABLET Take 1 tablet by mouth every * IPRATROPIUM BROMIDE 0.02 % SO* Use 2.5 mL via nebulizer four* LABETALOL 200 MG TABLET Take 1 tablet by mouth twice * PSYLLIUM SEED (SUGAR) ORAL PO* Take 3 Tablespoonsful by mout* METFORMIN ER 750 MG TABLET,EX* Take 1 tablet by mouth twice * MONTELUKAST 10 MG TABLET Take 1 tablet by mouth daily * MUPIROCIN 2 % TOPICAL OINTMENT Apply 1 application to affect* PROGESTERONE MICRONIZED 200 M* Take 1 capsule by mouth daily* BECLOMETHASONE DIPROPIONATE 8* Inhale 1 Puff as instructed t* RANITIDINE 150 MG TABLET Take 1 tablet by mouth twice * PROAIR HFA 90 MCG/ACTUATION A* AMLODIPINE 5 MG TABLET VITAMIN D2 50,000 UNIT CAPSULE NORETHINDRONE (CONTRACEPTIVE)* CLEARLAX 17 GRAM/DOSE ORAL PO* SPIRONOLACTONE 100 MG TABLET Problem List As Of Date 01/21/2018 Noted Resolved Dysuria [R30.0] INVALID FOR* Disposition: Return in about 3 months (around 04/23/2018). Follow-up and Disposition History Recorded Encounter Status:Closed by PALLAVI RUCKER PA-C on 01/22/18 [place]UM[place] SACRAL COMPLETE Observed: 01/16/2018 Status: F Source: [place] 4 VIEWS 6:36 PM [facility] REPOSITORY [place] [address] Patient: LUIS LEONE Phone#: : 1995 Age: 22 Gender: F Pt. Type: ER Account: [id number] Location: 052 Ordering: ELVA BLAKE Exam Date: 01/16/2018/18:18 Family Phys: ROD Lay IRAHETA Charge Code: [id number] Physician: [place] Order #: [id number] DLP Dose#: PROCEDURE: X-RAY LUMBAR SPINE COMPLETE MIN 4 VIEWS COMPARISON: [facility], XR, LUMBAR SPINE COMPLETE, 10/11/2014, 19:01. INDICATIONS: Pain FINDINGS: BONES: Normal. No significant spondylosis, scoliosis, fracture, or visible bony lesion. DISC SPACES: There is mild disc space narrowing at L5-S1. There is minimal retrolisthesis at L5-S1 PARASPINOUS: Negative. No paraspinous abnormality is seen. OTHER: Negative. CONCLUSION: 1. Minimal retrolisthesis at L5-S1 similar to prior exam. There is no evidence of acute abnormality. Dictated by: Nazanin Tomas MD on 01/16/2018 at 18:39 Approved by: Nazanin Tomas MD on 01/16/2018 at 18:39 URINE Collected: 01/16/2018 Status: F Source: [facility] 6:10 PM [facility] REPOSITORY TYPE CODE TESTS RESULT OUT OF REFERENCE UNITS RANGE LAB NEGATIVE UR(LOINC) UR NEGATIVE LAB INTERNAL QC(LOINC) INTERNAL QC PASS LAB EXTERNAL QC DONE?(LOINC) EXTERNAL QC YES DONE? Performed By: #### [id number] #### [facility],[address] [place], [place] [id number] URINALYSIS Collected: 01/16/2018 Status: F Source: [facility] 6:10 PM [facility] REPOSITORY TYPE CODE TESTS RESULT OUT OF REFERENCE UNITS RANGE LAB URINALYSIS (LOINC) URINALYSIS Result Comment: URINALYSIS LAB Specimen Type(LOINC) Specimen Void Type LAB Color(LOINC) NORMAL: YELLOW Color p.yel LAB Clarity(LOINC) NORMAL: CLEAR Clarity clear LAB ph(LOINC) NORMAL: 5.0-8.0 ph 6 LAB Protein(LOINC) NORMAL: NEGATIVE Protein NEG LAB Glucose(LOINC) NORMAL: NORMAL Glucose NORM LAB Ketone(LOINC) NORMAL: NEGATIVE Ketone NEG LAB Bilirubin(LOINC) NORMAL: NEGATIVE Bilirubin NEG LAB Blood(LOINC) NORMAL: NEGATIVE Blood NEG LAB Urobilinog(LOINC) NORMAL: NORMAL Urobilinog NORM LAB Sp [place](LOINC) NORMAL: 1.010-1.030 Sp [place] 1.020 LAB Nitrite(LOINC) NORMAL: NEGATIVE Nitrite NEG LAB Leukocytes(LOINC) NORMAL: NEGATIVE Leukocytes NEG LAB Microscopic(LOINC ) Microscopic NOT INDICATED Performed By: #### [id number] #### [place] [address] HYSTERSALPINGOGRAM Observed: 01/12/2018 Status: F Source: [place] 12:51 PM [place] [address] Patient: LUIS LEONE Phone#: : 1995 Age: 22 Gender: F Pt. Type: Out Account: [id number] Location: [facility] Ordering: SASCHA VELASQUEZ Exam Date: 01/12/2018/12:10 Family Phys: ROD IRAHETA Charge Code: [id number] Physician: [place] Order #: [id number] DLP Dose#: PROCEDURE: X-RAY HYSTERSALPINGOGRAM COMPARISON: None. INDICATIONS: Infertility TECHNIQUE: Informed consent was obtained. A sterile vaginal speculum was introduced and, following cleansing of the cervix, a balloon-tipped catheter was inserted into the endometrial cavity. The procedure was then completed in the usual manner with water-soluble contrast injected under fluoroscopy and with radiographs taken. The procedure was performed by Dr. Velasquez. TOTAL DOSE: 39.42 mGy FLUORO: Fluoroscopy was conducted for 0.5 minutes. FINDINGS: FALLOPIAN TUBES: Normal. Patent fallopian tubes bilaterally. ENDOMETRIAL CAVITY: Normal. No scarring, filling defects, or dilatation. OTHER: Negative. CONCLUSION: The fallopian tubes are patent bilaterally. Dictated by: Nazanin Tomas MD on 01/12/2018 at 13:09 Approved by: Nazanin Tomas MD on 01/12/2018 at 13:09 SERUM QUAL Collected: 01/12/2018 Status: F Source: [place] 11:48 AM [facility] REPOSITORY TYPE CODE TESTS RESULT OUT OF REFERENCE UNITS RANGE LAB NEGATIVE SER(LOINC) SER NEGATIVE LAB INTERNAL QC(LOINC) INTERNAL QC PASS LAB EXTERNAL QC DONE?(LOINC) EXTERNAL QC YES DONE? Performed By: #### [id number] #### [facility],[address] [place] [address] PROGESTERONE, SERUM Collected: 12/27/2017 Status: F Source: [place] DAV[place] [QUEST] 4:45 PM [facility] REPOSITORY TYPE CODE TESTS RESULT OUT OF REFERENCE UNITS RANGE LAB PROGESTERONE , SERUM [QUEST](LOIN C) PROGESTERONE , SERUM [QUEST] Result Comment: _PROGESTERONE SERUM_ PROGESTERONE Reported: 12/29/2017 23:09 Status=F TEST RESULT FLAG RANGE UNITS PROGESTERONE 9.2 ng/mL 12/29/17.2322.rfl.COMPLETE.AMRR .2839-9 Unable to flag abnormal result(s), please refer to reference range(s) below: Female: Follicular Phase <1.0 ng/mL Luteal Phase 2.6 - 21.5 ng/mL Post Menopausal <0.5 ng/mL : 1st Trimester 4.1 - 34.0 ng/mL 2nd Trimester 24.0 - 76.0 ng/mL 3rd Trimester 52.0 -302.0 ng/mL Test Performed by Pedro Luis Yañeztilly, [facility], [address] [place] [address] Anderson Pringle M.D., Ph.D., Director of Laboratories , [facility] [id number] 12/30/17.0622.JLN.to [phone] via fax Performed By: #### [id number] #### [facility],[address] [place] [address] Observed: 12/25/2017 Status: F Source: [place] URINE CULTURE 2:36 PM [facility] REPOSITORY Sp. Request/Comment: - Specimen received in preservative Culture Result - 10,000 - <50,000 CFU/ml Normal urogenital nicola Performed By: #### URCUL #### [facility] [address] [place] [address] PROGRESS Observed: 12/25/2017 Status: COMPLETED Source: [place] 2:25 PM [facility] REPOSITORY HNO ID: [id number] Author: Vijaya Day Service: (none) Author Type: Physician Type: Progress Notes Filed: 01/10/2018 10:29 PM Note Text: Patient presents with: new limited: blood in urine x 1 week (UTI) SUBJECTIVE: Luis Leone is a 22 year old year old lady here today for follow up appointment for review of medical conditions. Noted that hard to get in with PCP. [facility] treated most recent UTI. Bactrim given. Has had frequent UTI. Getting every time has intercourse. Trying to have a baby. On Clomid. Still with burning with urination and lower back pain. Also frequency and urgency. Hard to work with urgency. PAST MEDICAL HISTORY Diagnosis Date - Asthma - HTN (hypertension) - Kidney stones Current Outpatient Prescriptions: PROAIR HFA 90 mcg/actuation inhaler VITAMIN D 50,000 unit capsule cetirizine (ZYRTEC) 10 mg tablet Take 1 tablet by mouth once daily. clomiPHENE (SEROPHENE) 50 mg tablet 250 mg oral dose Cycle days 3 through 7 (Dr. Velasquez) Cranberry Extract (CRANBERRY CONCENTRATE) 500 mg cap Take 1 capsule by mouth once daily. FLUoxetine (PROZAC) 20 mg capsule Take 1 capsule by mouth once daily. ibuprofen (MOTRIN) 800 mg tablet Take 1 tablet by mouth every 8 hours as needed for Pain. Take with food. ipratropium (ATROVENT) 0.02 % nebulizer solution Use 2.5 mL via nebulizer four times daily as needed for Wheezing/Shortness of Breath. Use over 5-15minutes. labetalol (TRANDATE) 200 mg tablet Take 1 tablet by mouth twice daily. Psyllium Seed-Sucrose (METAMUCIL, SUGAR,) powd Take 3 Tablespoonsful by mouth three times daily as needed. metFORMIN ER (GLUCOPHAGE XR) 750 mg 24 hr tablet Take 1 tablet by mouth twice daily. montelukast (SINGULAIR) 10 mg tablet Take 1 tablet by mouth daily at bedtime. mupirocin (BACTROBAN) 2 % ointment Apply 1 application to affected area three times daily. Location: for break out on face progesterone micronized (PROMETRIUM) 200 mg capsule Take 1 capsule by mouth daily at bedtime. beclomethasone (QVAR) 80 mcg/actuation inhaler Inhale 1 Puff as instructed twice daily. ranitidine (ZANTAC) 150 mg tablet Take 1 tablet by mouth twice daily. sulfamethoxazole-trimethoprim (BACTRIM DS) 800-160 mg per tablet Take 1 tablet by mouth twice daily for 5 days. amLODIPine (NORVASC) 5 mg tablet Norethindrone, Contraceptive, 0.35 mg tablet CLEARLAX 17 gram/dose powder spironolactone (ALDACTONE) 100 mg tablet No current facility-administered medications for this visit. OBJECTIVE: BP 140/80 (BP Site: Left Arm, BP Position: Sitting, BP Cuff Size: Large Adult) Pulse 88 Temp 37 ?C (98.6 ?F) Resp 14 Ht 167.6 cm (5' 6) Wt 130.4 kg (287 lb 6.4 oz) LMP 12/04/2017 SpO2 95% BMI 46.39 kg/m2 Patient is alert, oriented times 3, no apparent distress, affect is bright, reactive. Heart: Regular rate, rhythm, no murmurs, gallops, rubs. Lungs: Clear to auscultation, bilaterally, breathing non labored. Ext: No cyanosis, clubbing, or edema. Urine dip shows: Glucose, Urine (mg/dL) Date Value 12/25/2017 neg Bilirubin, Urine (no units) Date Value 12/25/2017 neg Bilirubin, Urine (no units) Date Value 12/25/2017 neg Ketones, Urine (no units) Date Value 12/25/2017 neg Specific [place], Ur (no units) Date Value 12/25/2017 1.010 Hemoglobin/Blood,Ur (no units) Date Value 12/25/2017 neg No results found for: PH Protein, Urine (mg/dL) Date Value 12/25/2017 neg Urobilinogen, Urine (EU) Date Value 12/25/2017 normal No components found for: NITR Leukocytes (no units) Date Value 12/25/2017 neg Color/Appearance (comment:) Date Value 12/25/2017 yellow/cloudy ASSESSMENT AND PLAN: Encounter Diagnosis ICD-10-CM 1. Dysuria R30.0 UA DIP B/O URINE CULTURE 2. Acute cystitis with hematuria N30.01 URINE CULTURE no hematuria on dipstick test today 3. Postcoital UTI N39.0 CONSULT TO UROLOGY Above issues addressed with patient. Patient involved in shared decision making for management of her medical issues. History and medications reviewed. Epic updated as needed Refills taken care of and meds adjusted as indicated after reviewed history, exam and labs. Further evaluation and treatment as indicated. Patient and trying to conceive with help of fertility expert. Will try to avoid antibiotics with potential adverse consequences for fetus/baby. Will try postcoital antibiotic to try to prevent severe UTI. Refer as discussed to urologist. The majority of the visit was spent counseling and/or coordinating care for the patient. [id number]-ms-[id number] time was at least 20 minutes. Vijaya Day MD CNOV Observed: 12/25/2017 Status: COMPLETED Source: [place] 1:20 PM [facility] REPOSITORY Office Visit (INTMWS) LUIS LEONE ([id number]) 1995 F Date Time Provider Department 12/25/17 1:20 PM VIJAYA DAY INTMWS During your visit today, we recorded the following information about you: Temperature Pulse Respiration Blood pressure 98.6 degrees 88/minute 14/minute 140/80 Weight Height Last Period 130.4 kg 1.676 m 12/04/17 Vijaya Day MD 01/10/2018 10:29 PM Signed Patient presents with: new limited: blood in urine x 1 week (UTI) SUBJECTIVE: Luis Leone is a 22 year old year old lady here today for follow up appointment for review of medical conditions. Noted that hard to get in with PCP. [facility] treated most recent UTI. Bactrim given. Has had frequent UTI. Getting every time has intercourse. Trying to have a baby. On Clomid. Still with burning with urination and lower back pain. Also frequency and urgency. Hard to work with urgency. PAST MEDICAL HISTORY Diagnosis Date - Asthma - HTN (hypertension) - Kidney stones Current Outpatient Prescriptions: PROAIR HFA 90 mcg/actuation inhaler VITAMIN D 50,000 unit capsule cetirizine (ZYRTEC) 10 mg tablet Take 1 tablet by mouth once daily. clomiPHENE (SEROPHENE) 50 mg tablet 250 mg oral dose Cycle days 3 through 7 (Dr. Velasquez) Cranberry Extract (CRANBERRY CONCENTRATE) 500 mg cap Take 1 capsule by mouth once daily. FLUoxetine (PROZAC) 20 mg capsule Take 1 capsule by mouth once daily. ibuprofen (MOTRIN) 800 mg tablet Take 1 tablet by mouth every 8 hours as needed for Pain. Take with food. ipratropium (ATROVENT) 0.02 % nebulizer solution Use 2.5 mL via nebulizer four times daily as needed for Wheezing/Shortness of Breath. Use over 5-15minutes. labetalol (TRANDATE) 200 mg tablet Take 1 tablet by mouth twice daily. Psyllium Seed-Sucrose (METAMUCIL, SUGAR,) powd Take 3 Tablespoonsful by mouth three times daily as needed. metFORMIN ER (GLUCOPHAGE XR) 750 mg 24 hr tablet Take 1 tablet by mouth twice daily. montelukast (SINGULAIR) 10 mg tablet Take 1 tablet by mouth daily at bedtime. mupirocin (BACTROBAN) 2 % ointment Apply 1 application to affected area three times daily. Location: for break out on face progesterone micronized (PROMETRIUM) 200 mg capsule Take 1 capsule by mouth daily at bedtime. beclomethasone (QVAR) 80 mcg/actuation inhaler Inhale 1 Puff as instructed twice daily. ranitidine (ZANTAC) 150 mg tablet Take 1 tablet by mouth twice daily. sulfamethoxazole-trimethoprim (BACTRIM DS) 800-160 mg per tablet Take 1 tablet by mouth twice daily for 5 days. amLODIPine (NORVASC) 5 mg tablet Norethindrone, Contraceptive, 0.35 mg tablet CLEARLAX 17 gram/dose powder spironolactone (ALDACTONE) 100 mg tablet No current facility-administered medications for this visit. OBJECTIVE: BP 140/80 (BP Site: Left Arm, BP Position: Sitting, BP Cuff Size: Large Adult) Pulse 88 Temp 37 ?C (98.6 ?F) Resp 14 Ht 167.6 cm (5' 6ANDquot;) Wt 130.4 kg (287 lb 6.4 oz) LMP 12/04/2017 SpO2 95% BMI 46.39 kg/m2 Patient is alert, oriented times 3, no apparent distress, affect is bright, reactive. Heart: Regular rate, rhythm, no murmurs, gallops, rubs. Lungs: Clear to auscultation, bilaterally, breathing non labored. Ext: No cyanosis, clubbing, or edema. Urine dip shows: Glucose, Urine (mg/dL) Date Value 12/25/2017 neg Bilirubin, Urine (no units) Date Value 12/25/2017 neg Bilirubin, Urine (no units) Date Value 12/25/2017 neg Ketones, Urine (no units) Date Value 12/25/2017 neg Specific [place], Ur (no units) Date Value 12/25/2017 1.010 Hemoglobin/Blood,Ur (no units) Date Value 12/25/2017 neg No results found for: PH Protein, Urine (mg/dL) Date Value 12/25/2017 neg Urobilinogen, Urine (EU) Date Value 12/25/2017 normal No components found for: NITR Leukocytes (no units) Date Value 12/25/2017 neg Color/Appearance (comment:) Date Value 12/25/2017 yellow/cloudy ASSESSMENT AND PLAN: Encounter Diagnosis ICD-10-CM 1. Dysuria R30.0 UA DIP B/O URINE CULTURE 2. Acute cystitis with hematuria N30.01 URINE CULTURE no hematuria on dipstick test today 3. Postcoital UTI N39.0 CONSULT TO UROLOGY Above issues addressed with patient. Patient involved in shared decision making for management of her medical issues. History and medications reviewed. Epic updated as needed Refills taken care of and meds adjusted as indicated after reviewed history, exam and labs. Further evaluation and treatment as indicated. Patient and trying to conceive with help of fertility expert. Will try to avoid antibiotics with potential adverse consequences for fetus/baby. Will try postcoital antibiotic to try to prevent severe UTI. Refer as discussed to urologist. The majority of the visit was spent counseling and/or coordinating care for the patient. Sqgw-lh-qpxu time was at least 20 minutes. Vijaya Day MD Referring Provider: SELF [200] Allergies As of Date: 12/25/2017 Noted Allergy Reaction FLAGYL (METRONIDAZOLE HCL) 12/25/2017 2 - Rash 9 - Itching Date Reviewed: 12/25/2017 Reviewed by: Teri Jaffe LPN - Fully Assessed Reason for Visit: new limited [Other] Cmt: blood in urine x 1 week (UTI) Primary Visit Diagnosis:Dysuria [R30.0] Other Visit Diagnoses:Acute cystitis with hematuria [N30.01] Comment:no hematuria on dipstick test today Postcoital UTI [N39.0] Order(s):UA DIP B/O [0896375] Order #: [id number] clomiPHENE (SEROPHENE) 50 mg [id number] mg oral dose Cycle days 3 through 7 (Dr. Velasquez)Disp: Rfl: metFORMIN ER (GLUCOPHAGE XR) 750 mg 24 hr tabletTake 1 tablet by mouth twice daily.Disp: Rfl: URINE CULTURE [SQURCUL] Order #: [id number]. #:[id number] [] nitrofurantoin monohydrate and macrocrystal (MACROBID) 100 mg capsuleTake 1 capsule by mouth twice daily with meals for 7 days.Disp: 14 capsuleRfl: 0 CONSULT TO UROLOGY [9041] Order #: [id number]: 1 Prescriptions as of 12/25/2017 Sig: PROAIR HFA 90 MCG/ACTUATION A* VITAMIN D2 50,000 UNIT CAPSULE CETIRIZINE 10 MG TABLET Take 1 tablet by mouth once d* CLOMIPHENE CITRATE 50 MG TABL* 250 mg oral dose Cycle days 3* CRANBERRY EXTRACT 500 MG CAPS* Take 1 capsule by mouth once * FLUOXETINE 20 MG CAPSULE Take 1 capsule by mouth once * IBUPROFEN 800 MG TABLET Take 1 tablet by mouth every * IPRATROPIUM BROMIDE 0.02 % SO* Use 2.5 mL via nebulizer four* LABETALOL 200 MG TABLET Take 1 tablet by mouth twice * PSYLLIUM SEED (SUGAR) ORAL PO* Take 3 Tablespoonsful by mout* METFORMIN ER 750 MG TABLET,EX* Take 1 tablet by mouth twice * MONTELUKAST 10 MG TABLET Take 1 tablet by mouth daily * MUPIROCIN 2 % TOPICAL OINTMENT Apply 1 application to affect* PROGESTERONE MICRONIZED 200 M* Take 1 capsule by mouth daily* BECLOMETHASONE DIPROPIONATE 8* Inhale 1 Puff as instructed t* RANITIDINE 150 MG TABLET Take 1 tablet by mouth twice * NITROFURANTOIN MONOHYDRATE AND * Take 1 capsule by mouth twice* AMLODIPINE 5 MG TABLET NORETHINDRONE (CONTRACEPTIVE)* CLEARLAX 17 GRAM/DOSE ORAL PO* SPIRONOLACTONE 100 MG TABLET Problem List As Of Date: 12/25/2017 (None) Prescriptions ordered this encounter Disp Refills Start End CLOMIPHENE CITRATE 50 MG TABLET 12/25/2017 Class: Med Update Si mg oral dose Cycle days 3 through 7 (Dr. Velasquez) METFORMIN ER 750 MG TABLET,EXTENDED * 12/25/2017 Class: Med Update Route: ORAL Sig: Take 1 tablet by mouth twice daily. SULFAMETHOXAZOLE 800 MG-TRIMETHOPRIM* 12/21/2017 12/25/2017 Class: Med Update Route: ORAL Sig: Take 1 tablet by mouth twice daily for 5 days. NITROFURANTOIN MONOHYDRATE AND MACROCR* 14 c* 0 12/25/2017 01/01/2018 Route: ORAL Sig: Take 1 capsule by mouth twice daily with meals for 7 days. Medications Discontinued During This Encounter sulfamethoxazole-trimethoprim (BACTR* 12/21/2017 12/25/2017 Class: Med Update Route: ORAL Sig: Take 1 tablet by mouth twice daily for 5 days. Disc: Reason for discontinue is not on file. Follow-up and Disposition History Recorded Letter Text Department of Internal Medicine [address] [address] 12/25/2017 Luis Leone CC# [id number] [address] [place] [address] TO WHOM IT MAY CONCERN: This is to confirm that Luis Leone had an appointment and was seen at the [facility] in the Department of Internal Medicine by Vijaya Gaines MD on 12/25/2017. Sincerely yours, Vijaya Gaines MD Encounter Status:Closed by VIJAYA DAY MD on 01/10/18 Observed: 12/17/2017 Status: F Source: SRINIVAS BELTRAN CULTURE URINE 6:39 PM [facility] REPOSITORY CULTURE URINE _URINE CULTURE_ M I C R O B I O L O G Y R E P O R T FINAL Antimicrobial Susceptibility and Organism Identification Report Specimen Number : [id number] Requested : 12/17/17 Specimen Source : URINE Collected : 12/17/17 18:39 [place] of Isolation : OUTPATIENT Received : 12/17/17 18:39 Requesting Physician : REUBEN Patient/Specimen Tests and Comments Specimen Comments FINAL REPORT: URINE COLONY COUNT: > THAN 100,000 CFU/CC >OR=TO 3 COLONY TYPES PROBABLE CONTAMINATION Tech : Source : URINE ID # : [id number] FINAL Report Date : / / : Collected : 12/17/17 18:39 12/20/17.JLN. 12/19/17.JLN. 12/20/17.JLN.COMPLETE Performed By: #### [id number] #### Srinivas [facility],[address] [place] [address] PROGESTERONE, SERUM Collected: 11/26/2017 Status: F Source: [facility] [QUEST] 5:55 PM [facility] REPOSITORY TYPE CODE TESTS RESULT OUT OF REFERENCE UNITS RANGE LAB PROGESTERONE , SERUM [QUEST](CHETAN Yee) PROGESTERONE , SERUM [QUEST] Result Comment: _PROGESTERONE SERUM_ PROGESTERONE Reported: 11/29/2017 00:52 Status=F TEST RESULT FLAG RANGE UNITS PROGESTERONE 15.7 ng/mL 11/29/17.0118.rfl.COMPLETE.AMRR .2839-9 Unable to flag abnormal result(s), please refer to reference range(s) below: Female: Follicular Phase <1.0 ng/mL Luteal Phase 2.6 - 21.5 ng/mL Post Menopausal <0.5 ng/mL : 1st Trimester 4.1 - 34.0 ng/mL 2nd Trimester 24.0 - 76.0 ng/mL 3rd Trimester 52.0 -302.0 ng/mL Test Performed by [facility], [facility], [address] [place] [address] Anderson Pringle M.D., Ph.D., Director of Laboratories , [place] [id number] Performed By: #### [id number] #### [facility],[address] [place] [address] PROGESTERONE, SERUM Collected: 2017 Status: F [facility] [QUEST] 4:53 PM [facility] REPOSITORY TYPE CODE TESTS RESULT OUT OF REFERENCE UNITS RANGE LAB PROGESTERONE , SERUM [QUEST](LOIN C) PROGESTERONE , SERUM [QUEST] Result Comment: _PROGESTERONE SERUM_ PROGESTERONE Reported: 10/31/2017 00:48 Status=F TEST RESULT FLAG RANGE UNITS PROGESTERONE 8.7 ng/mL 10/31/17.0100.rfl.COMPLETE.[facility] .2839-9 Unable to flag abnormal result(s), please refer to reference range(s) below: Female: Follicular Phase <1.0 ng/mL Luteal Phase 2.6 - 21.5 ng/mL Post Menopausal <0.5 ng/mL : 1st Trimester 4.1 - 34.0 ng/mL 2nd Trimester 24.0 - 76.0 ng/mL 3rd Trimester 52.0 -302.0 ng/mL Test Performed by [facility], [facility], [address] [place] [id number] Anderson Pringle M.D., Ph.D., Director of [employer] , [place] [id number] Performed By: #### [id number] #### Srinivas [facility],[address] [place] [address] ALLERGIES ALLERGIES DATE TYPE / CODE NAME / CODE REACTION SEVERITY SOURCE Drug metronidazole/F006 Rash Unknown [place] 8 Allergy/961198042( 837735(RXNORM) [facility] SNOMED CT) Hospital Repository DRUG METRONIDAZOLE HCL RASH [place] 8 INGREDI/985371235( Clinic Main SNOMED CT) [place] Repository 08/03/201 Miscellaneous AN UNKOWN IV MED Other Unknown [place] 4 Allergy/494540426( [facility] SNOMED CT) Hospital Repository Drug NO KNOWN ALLERGIES [place] Class/777184836([facility] Main OMED CT) [place] Repository Drug FLAGYL/68127917(RX Moderate Srinivas Pomerene Allergy/478960302( NORM) ([facility]) Modifier) Hospital (Qualifier Repository Value) ENCOUNTERS ENCOUNTERS ADMIT/DISCHARGE ACCOUNT ADMITTING ENCOUNTER LOCATION SOURCE NUMBER CLASS 09/27/2018 [id number] [facility] ing:LABSPEC Repository 09/20/2018/09/20/[id number] ing:WPOUTRoom Repository : [id number] 09/12/2018/09/12/20 [id number] [facility] [address] [place] [address] CN oom: [address] [place] [address] Repository 08/08/2018/08/08/[id number] RUBIO DUARTE Emergency Buildin[address] [place] [address] Nakia oom: ERBed: C [facility] Repository 07/31/2018/07/31/20 [id number] Emergency [address] ing:ED Repository 07/30/2018/08/02/20 [id number] Ambulatory [address] Repository 07/20/2018/07/20/[id number] SRINI Emergency [facility] [place] [address] ABHILASH Dee oom: ERBed: G [facility] Repository 06/21/2018 [id number] Ambulatory [facility] ing:WOBLAB Repository 06/01/2018/06/23/20 [id number] Ambulatory [address] Repository 05/31/2018 [id number] Ambulatory [facility] ing:LABSPEC Repository 05/28/2018/05/29/20 [id number] ARASH Emergency [facility] [place] [address] SASCHA [place] oom: ERBed: E [facility] Repository 04/06/2018/04/06/20 [id number] SASCHA VELASQUEZ Ambulatory [address] Repository 03/04/2018/03/04/[id number] Repository 03/02/2018/03/02/20 [id number] ATTILA [address] Repository 01/22/2018/01/23/20 [id number] ATTILATREASURE [address] Repository 01/22/2018/01/23/20 [id number] LUCIALAYLA [address] Repository 01/21/2018/01/26/20 [id number] Ambulatory [address] Repository 01/16/2018/01/17/20 [id number] ELVA BLAKE Emergency [facility]in[address] [place] [address] oom: ERBed: [facility] Repository 01/12/2018/01/13/[id number] RON [address] Repository 12/27/2017/12/27/19 [id number] RON [address] Repository 12/25/2017/01/13/[id number] Repository 12/17/2017/12/17/[id number] Repository 11/26/2017/11/26/19 [id number] LUCIALAYLA [address] Repository 10/28/2017/10/28/20 [id number] RON [address] Repository PAYERS PAYERS ENCOUNTER GUARANTOR PAYER SUBSCRIBER SOURCE 09/27/2018 LUIS Moeller Primary RONNA Dee Insurance:ANTHEMPolicy [facility] Number: [id number] [id number] Repository [place] [address]Fdr: e Date:0981-73-00[address], [place] ) [address]DC: 09/27/2018 Secondary NOT GIVENJOSE FRANCISCO [place] Insurance:SELF PAY [facility]: Effective Repository Date:2018-09-27 09/20/2018 LUIS LEONE[address] Insurance:ANTHEMPolicy HARTMANDOB: Community [place] Number: [id number], [id number] [place]ository [place] [address]Fii: e Date:7121-03-17[address] () [address]TQ: 09/20/2018 Secondary NOT GIVENUNK Fco Insurance:SELF PAY [facility] Number: Effective Repository Date:2018-09-20 09/12/2018 LUIS Primary LUIS Espino Robert VALENTINAMANDOB: Insurance:ANTHEM BLUE BRANTLEYMANDOB: [facility] E CROSS [employer] [id number] [place] [address], Number: [place], [place] [id number] [place] [id number]: e Date:Plan Name: () 08/08/2018 LUIS Primary LUIS Moeller MARIAJOSEB: Srinivas Beltran VALENTINAMANDOB: Insurance:Kiip [id number] Memorial E CROSS [employer] [facility], Repository [facility], Number: [place] [id number] [place] [id number]: e Date:Plan Name:B2 () 07/31/2018 LUIS Primary RONNA [id number] Insurance:ANTHEMPolicy HARTMANDOB: [facility] [place] Number: [id number] Health, [id number] [place]ository [place] [address]Hxf: e Date:3479-02-26KT [address] () [address]HN: 07/31/2018 Secondary NOT GIVENUNK Fco Insurance:SELF PAY [facility] Number: Effective Repository Date:2018-07-31 07/20/2018 LUIS Primary LUIS BILLYB: Srinivas MONTGOMERYMANDOB: Insurance:ANTHEM BLUE [id number] [facility] E CROSS COMMERCIAL E [facility], Repository [facility], Number: [place] [address] [place] [id number]: e Date:Plan Name: () 06/21/2018 LUIS Primary RONNA [id number] Insurance:ANTHEMPolicy HARTMANDOB: Community [place] Number: [id number] Health, [id number] [place]ository [place] [address]Dat: e Date:4281-78-65[address]ULXL[address], [place] () [address]VU: 06/21/2018 Secondary NOT GIVENUNK Fco Insurance:SELF PAY [facility] Number: Effective Repository Date:2018-06-21 05/31/2018 LUIS Primary RONNA [address] Insurance:ANTHEMPolicy HARTMANDOB: [facility] Number: [id number] Health, [id number] [place]ository [place] [address]Mkp: e Date:6719-94-48BJ [address]ASTVZJC, [place] () [address]TL: 05/31/2018 Secondary NOT GIVENUNK [place] Insurance:SELF PAY [facility] Number: Effective Repository Date:2018-05-31 05/28/2018 LUIS Primary LUIS Moeller MARIAJOSEB: Srinivas MONTGOMERYMANDOB: Insurance:ANTHEM BLUE [id number] [facility] E CROSS COMMERCIAL E [facility], Repository [facility], Number: [place] [id number] [place] [id number]: e Date:Plan Name: () 04/06/2018 LUIS Primary LUIS Moeller MARIAJOSEB: Srinivas Beltran HARTMANDOB: Insurance:ANTHEM BLUE [id number] [facility] E CROSS COMMERCIAL [facility], Number: [place] [id number] [place] [id number]: e Date:Plan Name:B2 () 03/04/2018 LUIS Primary LUIS Moeller COXDOB: Srinivas Beltran HARTMANDOB: Insurance:ASHELYEnservco Corporation [id number] [facility] E CROSS COMMERCIAL [facility], [facility], Number: [place] [id number] [place] [id number]: e Date:Plan Name: () 03/02/2018 LUIS Primary RONNADENNIS MONTGOMERYMANDOB: Insurance:Kiip [facility] E CROSS COMMERCIAL [id number] [place] [address], Number: [facility] [place] [address] Or [id number]: e Date:Plan Name: () 01/22/2018 LUIS Primary LUIS Moeller COXDOB: Srinivas Beltran HARTMANDOB: Insurance:MONIKA Bulu [id number] [facility] E [address]OSS [address] [facility] Number: [place] [id number] , [place] [id number]: e Date:Plan Name:B2 () 01/22/2018 LUIS Primary LUIS M COXDOB: Srinivasdion Davisrachel HARTMANDOB: Insurance:ANTHEM BLUE [id number] [facility] E CROSS COMMERCIAL [facility], [facility] [place]: [place] [id number] , [place] [id number]: e Date:Plan Name:B2 () 01/16/2018 LUIS Primary RONNA R Srinivas Beltran HARTMANDOB: Insurance:ANTHEM BLUE MADISONDOB: [facility] E CROSS [employer] [id number] [facility] Number: [facility] [place] [address] [place], [place] [id number]: e Date:Plan Name: () 01/12/2018 LUIS Primary LUIS Moeller COXDOB: Srinivas Beltran HARTMANDOB: Insurance:ANTHEM BLUE [id number] [facility] E CROSS COMMERCIAL [facility], [facility] Number: [place] [id number] , [place] [id number]: e Date:Plan Name: () 12/27/2017 LUIS Primary LUIS Moeller COXDOB: Srinivas Beltran HARTMANDOB: Insurance:ANTHEM Bulu [id number] [facility] E CROSS COMMERCIAL [facility], [facility] [place]: [place] [id number] , [place] [id number]: e Date:Plan Name: () 12/17/2017 LUIS Primary LUIS Moeller COXDOB: Srinivas Beltran HARTMANDOB: Insurance:ANTHEMPolicy [id number] [facility] E Number: [facility] [id number] e Date:Plan Name:[facility] [address] [place], [place] [id number]: () 11/26/2017 LUIS Moeller Primary RONNA R Srinivas MONTGOMERYMANDOB: Insurance:ANTHEM BLUE LYNDONVILLEDOB: [facility] CROSS COMMERCIAL [id number] [facility], Number: [place] [address] Or [id number]: e Date:Plan Name:B2 () 2017 LUIS Beltran [facility]OB [facility]: Insurance:[facility] CENTERMANDOB: [facility] [id number] [place] [employer] [id number] [place] [address] Repository [facility], Number: [facility] CENTERCYNDYRoop[place], [place] [id number] [place] [id number]: e Date:Plan Name:B2 ()
== END ==
PROVIDERS: Family Provider Internal Medicine; PCP Internal Medicine; Referring Provider Obstetrics & Gynecology; Visit Provider Obstetrics & Gynecology
DX: Z53.9 Procedure and treatment not carried out, unspecified reason (principal)
CPT/HCPCS: 87086

== ENCOUNTER → 2018-11-04 13:10 | Outpatient (CLI) | payer BC, SELFPAY ==
[2018-11-04 16:09] LABS: Hematocrit 35.9 % (37-47); Hemoglobin 11.6 g/dl (12.0-15.0); Mean Corp Hgb Conc 32.3 g/gl (32-36); Mean Corpuscular Hgb 28.5 pg (27.0-32.0); Mean Corpuscular Volume 88.2 fL (81-99); Mean Platelet Vol. 10.2 fl (6.2-12.0); Platelet Count 354 K/mm3 (150-450); RBC Distribution Width CV 13.4 % (11.6-14.6); RBC Distribution Width SD 43.3 fl (35.1-43.9); Red Blood Count 4.07 M/mm3 (4.2-5.4); White Blood Count 11.7 K/mm3 (4.4-11.0)
[2018-11-04 16:18] LABS: Scan Indicated on CBC? Y/N NO
[2018-11-04 16:38] LABS: Glucose Challenge Gest 1H 50g 104 mg/dL (70-140)
== END ==
PROVIDERS: Family Provider Internal Medicine; PCP Internal Medicine; Visit Provider Obstetrics & Gynecology
DX: Z34.83 Encounter for supervision of other normal pregnancy, third trimester (principal)
CPT/HCPCS: 36415; 82950; 85027

== ENCOUNTER → 2018-12-22 16:57 | Outpatient (CLI) | payer BC, SELFPAY | PROVIDERS: Visit Provider Obstetrics & Gynecology | DX: N39.0 Urinary tract infection, site not specified (principal) | CPT/HCPCS: 87086; 87088 ==

== ENCOUNTER → 2018-12-30 16:18 | Outpatient (CLI) | payer BC, SELFPAY | PROVIDERS: Visit Provider Obstetrics & Gynecology | DX: Z36.85 Encounter for antenatal screening for Streptococcus B (principal) | CPT/HCPCS: 87081 ==

== ENCOUNTER 2019-01-11 18:15 | Observation (INO) | payer BC, SELFPAY ==
[2019-01-11 18:14] VITALS: BMI 47.9
[2019-01-11 19:16] LABS: Hematocrit 37.8 % (37-47); Hemoglobin 12.1 g/dl (12.0-15.0); Mean Corpuscular Hgb 27.9 pg (27.0-32.0); Mean Corpuscular Volume 87.1 fL (81-99); Mean Platelet Vol. 10.3 fl (6.2-12.0); Platelet Count 367 K/mm3 (150-450); RBC Distribution Width CV 13.9 % (11.6-14.6); RBC Distribution Width SD 44.5 fl (35.1-43.9); Red Blood Count 4.34 M/mm3 (4.2-5.4); White Blood Count 12.3 K/mm3 (4.4-11.0)
[2019-01-11 19:18] LABS: Scan Indicated on CBC? Y/N NO
[2019-01-11 19:26] LABS: Protein, Urine (Random) 21.7 mg/dL (<11.9); Protein:Creat Ratio 209 mg/g CRE (0-200)
[2019-01-11 19:26] LABS: Prothrombin Time (Protime)PT. 13.2 SECONDS (11.7-14.9)
[2019-01-11 19:27] LABS: Partial Thromboplast Time 29.8 Seconds (24.1-36.2)
[2019-01-11 19:39] LABS: AST(SGOT) 17 U/L (15-37); Alanine Aminotransfer ALT/SGPT 8 U/L (13-56); Creatinine, Serum 0.41 mg/dL (0.55-1.02); EST Glomerular Filtration Rate 201 mL/min (>60); Est Glom Filt Rate - Afr Amer 243 mL/min (>60); Estimated Creatinine Clearance 198.07 ml/min; Uric Acid 3.6 mg/dL (2.6-6.0)
[2019-01-11] MEDS: Acetaminophen 500 MG Tablet PO (22:17)
[2019-01-11] MEDS: Famotidine 20 MG Tablet PO (22:19)
--- NOTE | 2019-01-12 07:31 | OB.TRI.NOTE ---
History of Present Illness Date of Service: 01/11/19 Was patient seen by the physician?: No Reason For Visit: DECREASED MOVEMENT Date of Service: 01/11/19 Final SUNITHA: 01/31/19 Final SUNITHA Source: US <20 weeks Gestational age: 37 Weeks and 2 Days History of Present Illness: 23 yo female at 37 1/7 wk presents with dec FM and brn spotting (recent cervix check in ofc) Found to have mild elevation of BPs. no RUQ pain. No SAM or other PIH sx. Allergies metronidazole [From Flagyl] Allergy (Verified 01/11/19 18:18) Rash Laboratory Studies: Laboratory Tests 01/11/19 01/11/19 01/11/19 Range/Units 19:00 18:05 18:05 WBC (4.4-11.0) K/mm3 RBC (4.2-5.4) M/mm3 Hgb (12.0-15.0) g/dl Hct (37-47) % MCV (81-99) fL MCH (27.0-32.0) pg MCHC (32-36) g/gl RDW (11.6-14.6) % RDW Differential (35.1-43.9) fl Plt Count (150-450) K/mm3 MPV (6.2-12.0) fl PT 13.2 (11.7-14.9) SECONDS INR 1.0 APTT 29.8 (24.1-36.2) Seconds Creatinine 0.41 L (0.55-1.02) mg/dL Estim Creat Clear Calc 198.07 ml/min Est GFR (MDRD) Af Amer 243 (>60) mL/min Est GFR (MDRD) Non-Af 201 (>60) mL/min Uric Acid 3.6 (2.6-6.0) mg/dL AST 17 (15-37) U/L ALT 8 L (13-56) U/L U Random Total Protein 21.7 H (<11.9) mg/dL Urine Creatinine 104.00 (NO RANGE EST.) mg/dL Protein/Creatinin Ratio 209 H (0-200) mg/g CRE 01/11/19 Range/Units 18:05 WBC 12.3 H (4.4-11.0) K/mm3 RBC 4.34 (4.2-5.4) M/mm3 Hgb 12.1 (12.0-15.0) g/dl Hct 37.8 (37-47) % MCV 87.1 (81-99) fL MCH 27.9 (27.0-32.0) pg MCHC 32.0 (32-36) g/gl RDW 13.9 (11.6-14.6) % RDW Differential 44.5 H (35.1-43.9) fl Plt Count 367 (150-450) K/mm3 MPV 10.3 (6.2-12.0) fl PT (11.7-14.9) SECONDS INR APTT (24.1-36.2) Seconds Creatinine (0.55-1.02) mg/dL Estim Creat Clear Calc ml/min Est GFR (MDRD) Af Amer (>60) mL/min Est GFR (MDRD) Non-Af (>60) mL/min Uric Acid (2.6-6.0) mg/dL AST (15-37) U/L ALT (13-56) U/L U Random Total Protein (<11.9) mg/dL Urine Creatinine (NO RANGE EST.) mg/dL Protein/Creatinin Ratio (0-200) mg/g CRE Review of Systems Eyes: Denies: Blurred vision Gastrointestinal: Reports: - - dyspepsia, normally takes Zantac at home Gynecological: Reports: - - spotting brn dischg. Physical Exam Vitals: BPs: 137/88 134/94, 134/81 140s / 80-90s Cervix Dilation (cm): 2 - No change from ofc exam , per RN check NST - FHR Rate Baby A Variability:: Moderate Accelerations:: 15 x 15 Decelerations:: None NST Reactive:: Yes, Appropriate for gestational age FHR Category:: Category I Uterine Activity:: irreg UCs Impression/Plan 37 1/7 wk female Decreased movement but reactive NST Irregular UCs Mildly elevated BPs. PIH labs drawn. All WNL but prot/cr ratio Bedrest, begin 24 hr urine collection Offered dischg to collect 24 hr urine at home Declined dischg Will continue bedrest with BRP here , serial BPs. and 24 hr urine collection Advised this to determine whether induction of labor with relatively unfavorable primip cervix is indicated. Continue care
--- NOTE | 2019-01-12 07:56 | OB.TRI.PN ---
Progress Notes Date of Service: 01/12/19 - 37 2/7 wk EGA Progress Note: Slept ok. Waking up now No SAM. no c/o this am. relates hopes to be able to go back to work, and home activities. Next PNV on 01/17/19 AVSS BPs 130s/80s overnight and this am. GEN: A and O NAD Abdomen: gravid A/P: 37 2/7 wk mildly elevated BPs with 24 hr urine in progress. Plan to finish 24 hr urine, then consider home on bedrest vs return to work. Keep next scheduled PNV. Explained potential for induction, but with relatively unfavorable primip cervix would induce only if medical indication at this EGA. Laboratory Studies: Laboratory Tests 01/11/19 01/11/19 01/11/19 Range/Units 19:00 18:05 18:05 WBC (4.4-11.0) K/mm3 RBC (4.2-5.4) M/mm3 Hgb (12.0-15.0) g/dl Hct (37-47) % MCV (81-99) fL MCH (27.0-32.0) pg MCHC (32-36) g/gl RDW (11.6-14.6) % RDW Differential (35.1-43.9) fl Plt Count (150-450) K/mm3 MPV (6.2-12.0) fl PT 13.2 (11.7-14.9) SECONDS INR 1.0 APTT 29.8 (24.1-36.2) Seconds Creatinine 0.41 L (0.55-1.02) mg/dL Estim Creat Clear Calc 198.07 ml/min Est GFR (MDRD) Af Amer 243 (>60) mL/min Est GFR (MDRD) Non-Af 201 (>60) mL/min Uric Acid 3.6 (2.6-6.0) mg/dL AST 17 (15-37) U/L ALT 8 L (13-56) U/L U Random Total Protein 21.7 H (<11.9) mg/dL Urine Creatinine 104.00 (NO RANGE EST.) mg/dL Protein/Creatinin Ratio 209 H (0-200) mg/g CRE 01/11/19 Range/Units 18:05 WBC 12.3 H (4.4-11.0) K/mm3 RBC 4.34 (4.2-5.4) M/mm3 Hgb 12.1 (12.0-15.0) g/dl Hct 37.8 (37-47) % MCV 87.1 (81-99) fL MCH 27.9 (27.0-32.0) pg MCHC 32.0 (32-36) g/gl RDW 13.9 (11.6-14.6) % RDW Differential 44.5 H (35.1-43.9) fl Plt Count 367 (150-450) K/mm3 MPV 10.3 (6.2-12.0) fl PT (11.7-14.9) SECONDS INR APTT (24.1-36.2) Seconds Creatinine (0.55-1.02) mg/dL Estim Creat Clear Calc ml/min Est GFR (MDRD) Af Amer (>60) mL/min Est GFR (MDRD) Non-Af (>60) mL/min Uric Acid (2.6-6.0) mg/dL AST (15-37) U/L ALT (13-56) U/L U Random Total Protein (<11.9) mg/dL Urine Creatinine (NO RANGE EST.) mg/dL Protein/Creatinin Ratio (0-200) mg/g CRE
--- NOTE | 2019-01-12 08:28 | PCM.PN.OB ---
Subjective: PPD#1 Doing well. Minimal pain. baby is nursing well. No concerns voiced. GBS testing was neg in . Discussed possible dischg home today. Objective: Sitting up in bed, nursing. NAD - Physical Exam General: Alert, Oriented x3, Cooperative, No apparent distress HEENT: Atraumatic Neck: Supple Psych/Mental Status: Normal Affect Weight: 134.9 kg Body Mass Index (BMI) 47.9 Laboratory Tests Past 24 Hrs 01/11/19 01/11/19 01/11/19 18:05 18:05 18:05 WBC 12.3 H RBC 4.34 Hgb 12.1 Hct 37.8 MCV 87.1 MCH 27.9 MCHC 32.0 RDW 13.9 RDW Differential 44.5 H Plt Count 367 MPV 10.3 PT 13.2 INR 1.0 APTT 29.8 Creatinine 0.41 L Estim Creat Clear Calc 198.07 Est GFR (MDRD) Af Amer 243 Est GFR (MDRD) Non-Af 201 Uric Acid 3.6 AST 17 ALT 8 L U Random Total Protein Urine Creatinine Protein/Creatinin Ratio 01/11/19 19:00 WBC RBC Hgb Hct MCV MCH MCHC RDW RDW Differential Plt Count MPV PT INR APTT Creatinine Estim Creat Clear Calc Est GFR (MDRD) Af Amer Est GFR (MDRD) Non-Af Uric Acid AST ALT U Random Total Protein 21.7 H Urine Creatinine 104.00 Protein/Creatinin Ratio 209 H Medical Necessity - Tobacco Use Smoking Status: Never smoker Assessment/Plan PPD#1 Stable pp. continue routine care. Potential dischg later today. Will check w/ peds if elects this.
== END 2019-01-12 11:30 | disposition home or self-care (01) ==
LOC: WPOUT 01-12 09:45
PROVIDERS: Admitting Provider Obstetrics & Gynecology; Referring Provider Obstetrics & Gynecology; Visit Provider Obstetrics & Gynecology
DX: O36.8130 Decreased fetal movements, third trimester, not applicable or unspecified (principal); Z3A.37 37 weeks gestation of pregnancy
CPT/HCPCS: 36415; 59025; 82565; 82570; 84156; 84450; 84460; 84550; 85027; 85610; 85730; 99218; G0378

== ENCOUNTER → 2019-01-13 10:48 | Outpatient (CLI) | payer BC, SELFPAY ==
[2019-01-11 18:14] VITALS: BMI 47.9
[2019-01-13 11:45] LABS: 24HR. UA Prot. Total Volume 2000 mL; 24HR. Urine Creatinine 1.52 g/24 HR (0.70-1.90); Urine Protein (24 Hour) 17.7 mg/dL (<11.9)
== END ==
PROVIDERS: Family Provider Internal Medicine; PCP Internal Medicine; Referring Provider Obstetrics & Gynecology; Visit Provider Obstetrics & Gynecology
DX: O13.9 Gestational [pregnancy-induced] hypertension without significant proteinuria, unspecified trimester (principal); Z3A.00 Weeks of gestation of pregnancy not specified
CPT/HCPCS: 82570; 84156

== ENCOUNTER 2019-01-14 14:00 | Outpatient (CLI) | payer BC, SELFPAY ==
[2019-01-14 14:28] VITALS: BMI 47.6
--- NOTE | 2019-01-15 08:20 | OB.TRI.NOTE ---
History of Present Illness Date of Service: 01/14/19 Was patient seen by the physician?: No Reason For Visit: NST Date of Service: 01/14/19 Final SUNITHA: 01/31/19 Final SUNITHA Source: US <20 weeks Gestational age: 37 Weeks and 5 Days History of Present Illness: Reports decreased movement and elevated blood pressures at home Allergies metronidazole [From Flagyl] Allergy (Verified 01/11/19 18:18) Rash Review of Systems Eyes: Denies: Blurred vision, Double vision, Pain, Vision Change HEENT: Denies: Head Aches Cardiovascular: Denies: Chest Pain, Chest Pressure, Chest Tightness Gynecological: Denies: Vaginal bleeding, Vaginal itching Physical Exam General: Alert, Oriented x3, Cooperative, No apparent distress Cardiovascular: Regular rate, Regular Rhythm Lungs: Clear to auscultation, Normal air movement Abdomen: Soft, Non Tender, Non-Distended, Gravid, Appropriate for Gestational Age Neurological: Neuro grossly intact UNDERGROUND MINER: Normal external genitalia Estimated gestational size: Appropriate for gestational size Presentation: Cephalic NST - FHR Rate Baby A Baseline: 120s Variability:: Moderate Accelerations:: 15 x 15 Decelerations:: None NST Reactive:: Yes, Appropriate for gestational age FHR Category:: Category I Uterine Activity:: none Impression/Plan Reassuring heart rate tracing. BPs stable from office and only modestly elevated. No increasing signs of preeclampsia.
--- NOTE | 2019-01-15 08:25 | OB.TRI.HP_ITS ---
History of Present Illness Date of Service: 01/14/19 Was patient seen by the physician?: No Reason For Visit: NST Date of Service: 01/14/19 Final SUNITHA: 01/31/19 Final SUNITHA Source: US <20 weeks Gestational age: 37 Weeks and 5 Days History of Present Illness: Reports decreased movement and elevated blood pressures at home Allergies metronidazole [From Flagyl] Allergy (Verified 01/11/19 18:18) Rash Review of Systems Eyes: Denies: Blurred vision, Double vision, Pain, Vision Change HEENT: Denies: Head Aches Cardiovascular: Denies: Chest Pain, Chest Pressure, Chest Tightness Gynecological: Denies: Vaginal bleeding, Vaginal itching Physical Exam General: Alert, Oriented x3, Cooperative, No apparent distress Cardiovascular: Regular rate, Regular Rhythm Lungs: Clear to auscultation, Normal air movement Abdomen: Soft, Non Tender, Non-Distended, Gravid, Appropriate for Gestational Age Neurological: Neuro grossly intact GUEST RELATIONS AGENT: Normal external genitalia Estimated gestational size: Appropriate for gestational size Presentation: Cephalic NST - FHR Rate Baby A Baseline: 120s Variability:: Moderate Accelerations:: 15 x 15 Decelerations:: None NST Reactive:: Yes, Appropriate for gestational age FHR Category:: Category I Uterine Activity:: none Impression/Plan Reassuring heart rate tracing. BPs stable from office and only modestly elevated. No increasing signs of preeclampsia.
== END 2019-01-14 15:10 | disposition home or self-care (01) ==
LOC: WPOUT 14:09 → WP 14:10
PROVIDERS: Family Provider Internal Medicine; PCP Internal Medicine; Referring Provider Obstetrics & Gynecology; Visit Provider Obstetrics & Gynecology
DX: O36.8130 Decreased fetal movements, third trimester, not applicable or unspecified (principal); Z3A.37 37 weeks gestation of pregnancy
CPT/HCPCS: 59050; 99218; G0378

== ENCOUNTER → 2019-01-17 17:12 | Outpatient (CLI) | payer BC, SELFPAY ==
[2019-01-14 14:28] VITALS: BMI 47.6
== END ==
PROVIDERS: Family Provider Internal Medicine; PCP Internal Medicine; Referring Provider Obstetrics & Gynecology; Visit Provider Obstetrics & Gynecology
DX: Z36.85 Encounter for antenatal screening for Streptococcus B (principal)
CPT/HCPCS: 87081

== ENCOUNTER 2019-02-01 15:30 | Outpatient (CLI) | payer BC, SELFPAY ==
[2019-02-01 15:54] VITALS: BMI 48.0
--- NOTE | 2019-02-01 17:30 | OB.TRI.NOTE ---
History of Present Illness Date of Service: 02/01/19 Was patient seen by the physician?: No Reason For Visit: NST decreased movement Date of Service: 02/01/19 Final SUNITHA: 01/31/19 Final SUNITHA Source: US <20 weeks Gestational age: 40 Weeks and 1 Days History of Present Illness: Reports decreased movement today. No signs of SROM or labor. Allergies metronidazole [From Flagyl] Allergy (Verified 01/11/19 18:18) Rash Physical Exam General: Alert, Oriented x3, Cooperative, No apparent distress Lungs: Clear to auscultation, Normal air movement Abdomen: Soft, Non Tender, Non-Distended, Gravid, Appropriate for Gestational Age Extremities:: No edema Neurological: Neuro grossly intact DESIGN MANAGER: Normal external genitalia Estimated gestational size: Appropriate for gestational size Presentation: Cephalic Cervix Dilation (cm): 2 Station: -2 Effacement (%): 50 NST - FHR Rate Baby A Baseline: 120s Variability:: Moderate Accelerations:: 15 x 15 Decelerations:: None NST Reactive:: Yes, Appropriate for gestational age FHR Category:: Category I Uterine Activity:: Irregular and rare Impression/Plan Reassuring Cat 1 FHR tracing. No change in cervical exam over the two hours of observation. BPs modestly elevated but not meeting criteria for preeclampsia. No signs of preeclampsia. Will followup in the office in 2 days or prn.
--- NOTE | 2019-02-01 17:33 | OB.TRI.HP_ITS ---
History of Present Illness Date of Service: 02/01/19 Was patient seen by the physician?: No Reason For Visit: NST decreased movement Date of Service: 02/01/19 Final SUNITHA: 01/31/19 Final SUNITHA Source: US <20 weeks Gestational age: 40 Weeks and 1 Days History of Present Illness: Reports decreased movement today. No signs of SROM or labor. Allergies metronidazole [From Flagyl] Allergy (Verified 01/11/19 18:18) Rash Physical Exam General: Alert, Oriented x3, Cooperative, No apparent distress Lungs: Clear to auscultation, Normal air movement Abdomen: Soft, Non Tender, Non-Distended, Gravid, Appropriate for Gestational Age Extremities:: No edema Neurological: Neuro grossly intact DIRECTOR OF CORPORATE SALES: Normal external genitalia Estimated gestational size: Appropriate for gestational size Presentation: Cephalic Cervix Dilation (cm): 2 Station: -2 Effacement (%): 50 NST - FHR Rate Baby A Baseline: 120s Variability:: Moderate Accelerations:: 15 x 15 Decelerations:: None NST Reactive:: Yes, Appropriate for gestational age FHR Category:: Category I Uterine Activity:: Irregular and rare Impression/Plan Reassuring Cat 1 FHR tracing. No change in cervical exam over the two hours of observation. BPs modestly elevated but not meeting criteria for preeclampsia. No signs of preeclampsia. Will followup in the office in 2 days or prn.
== END 2019-02-01 17:20 | disposition home or self-care (01) ==
LOC: WPOUT 15:39 → WP 15:39
PROVIDERS: Family Provider Internal Medicine; PCP Internal Medicine; Referring Provider Obstetrics & Gynecology; Visit Provider Obstetrics & Gynecology
DX: O36.8130 Decreased fetal movements, third trimester, not applicable or unspecified (principal); Z3A.40 40 weeks gestation of pregnancy
CPT/HCPCS: 59025; 59050; 99218; G0378

== ENCOUNTER 2019-02-02 11:57 | Inpatient (IN) | payer BC, SELFPAY ==
[2019-02-01 15:54] VITALS: BMI 48.0
[2019-02-02 11:15] VITALS: BMI 47.6
[2019-02-02] MEDS: Lactated Ringers 1,000 ML 50 ML IV ×4 (12:20→22:48)
[2019-02-02 12:49] VITALS: BP 185/97; PULSE 87
[2019-02-02] MEDS: Nalbuphine 10 MG/ML Ampul IV (12:52)
[2019-02-02 13:18] LABS: Prothrombin Time (Protime)PT. 12.6 SECONDS (11.7-14.9)
[2019-02-02 13:19] LABS: Partial Thromboplast Time 29.9 Seconds (24.1-36.2)
[2019-02-02 13:21] LABS: Absolute Lymphocyte Count 2.21 X10^3/ul (0.83-4.51); Basophil# 0.01 X10^3/uL; Basophil% 0.1 % (0-1); Eosinophil# 0.14 X10^3/uL; Eosinophils% 0.9 % (0-5); Hematocrit 38.7 % (37-47); Hemoglobin 12.6 g/dl (12.0-15.0); Lymphocyte # 2.21 X10^3/ul (4.0); Lymphocyte % 14.2 % (19-41); Mean Corp Hgb Conc 32.6 g/gl (32-36); Mean Corpuscular Hgb 28.1 pg (27.0-32.0); Mean Corpuscular Volume 86.2 fL (81-99); Mean Platelet Vol. 10.4 fl (6.2-12.0); Monocyte# 1.13 X10^3/uL; Monocyte% 7.2 % (0-10); Neutrophil # 12.04 X10^3/uL (2.7-7.7); Neutrophil % 77.2 % (47-70); POSITIVE COUNT NO; POSITIVE DIFFERENTIAL NO; POSITIVE MORPHOLOGY NO; Platelet Count 385 K/mm3 (150-450); RBC Distribution Width CV 14.2 % (11.6-14.6); Red Blood Count 4.49 M/mm3 (4.2-5.4); White Blood Count 15.6 K/mm3 (4.4-11.0)
[2019-02-02 13:30] VITALS: BP 185/97; PULSE 87
[2019-02-02] MEDS: hydrALAZINE 20 MG/ML Vial 10 MG IV (13:30)
[2019-02-02] MEDS: Magnesium Sulfate 20 GM/500 ML BAG IV ×2 (13:30→22:50)
[2019-02-02 13:43] VITALS: BP 168/91; PULSE 113
[2019-02-02 13:43] LABS: ALB/GLOB Ratio 0.5 RATIO (0.9-2.4); AST(SGOT) 17 U/L (15-37); Alanine Aminotransfer ALT/SGPT 8 U/L (13-56); Albumin, Serum 2.5 g/dL (3.2-5.0); Alkaline Phosphatase 255 U/L (45-117); Anion Gap 11 (5-15); BUN 6 mg/dL (7-18); BUN/Creat Ratio 12.8 RATIO (10-20); Calcium,Total 9.1 mg/dL (8.5-10.1); Chloride 107 mmol/L (98-107); Creatinine, Serum 0.47 mg/dL (0.55-1.02); EST Glomerular Filtration Rate 174 mL/min (>60); Est Glom Filt Rate - Afr Amer 210 mL/min (>60); Estimated Creatinine Clearance 172.78 ml/min; Globulin 4.8 g/dL (2.2-4.2); Glucose 73 mg/dL (74-106); Protein, Total 7.3 g/dL (6.4-8.2); Sodium Level 138 mmol/L (136-145)
[2019-02-02] MEDS: fentaNYL-bupivacaine (epidural) 100 ML BAG EPIDURAL ×2 (14:24→18:56)
[2019-02-02] MEDS: Ondansetron 4 MG/2 ML Vial IV (14:54)
--- NOTE | 2019-02-02 16:29 | HP.PCM_ITS ---
- Problem List (1) 40 weeks gestation of Status: Acute (2) Pre-eclampsia Status: Acute Qualifiers: Trimester: third trimester Qualified Code(s): O14.93 - Unspecified pre- eclampsia, third trimester Comment: severe features History Date of Admission: 02/02/19 Final SUNITHA: 01/31/19 Final SUNITHA Source: US <20 weeks Gestational age: 40 Weeks and 2 Days History of this : This is a 23 year-old, G [], P [], at 40 weeks gestational age. Medical History: Medical History (Last Updated 02/02/19 @ 16:30 by Ana Lilia Burroughs MD) Asthma J45.909 Nephrolithiasis N20.0 Oppositional defiant disorder F91.3 Surgical History: Surgical History (Last Updated 02/02/19 @ 16:43 by Ana Lilia Burroughs MD) H/O lithotripsy Z98.890 Allergies metronidazole [From Flagyl] Allergy (Verified 02/02/19 11:42) Rash Home Medications: Home Medications Acetaminophen [Tylenol Extra Strength] 1,000 mg PO Q6H PRN PRN 07/31/18 Budesonide Inhaler 180 mcg [Pulmicort Inhaler 180 mcg] 1 puff INHALATION BID #1 inhaler 07/31/18 Vits [Prenatabs FA ] 1 tab PO DAILY 09/20/18 Amoxicillin 1,000 mg PO BID 02/01/19 Smoking Status: Former smoker Alcohol: None Heart Tracin, moderate variability, + accelerations, no decelerations TOCO Analysis: poorly traced on patient's side History Past Pregnancies: Past Pregnancies Delivery Date Name GA/Weeks Outcome Route Weight Gender Labor Length Anesthesia Delivery Location Provider FOB Labs: Mom's Problem List Problem Status Onset Code 40 weeks gestation of Acute Z3A.40 Pre-eclampsia Acute O14.90 Mom's Labs & Results 02/02/19 02/02/19 02/02/19 12:55 12:55 12:55 WBC 15.6 H RBC 4.49 Hgb 12.6 Hct 38.7 MCV 86.2 MCH 28.1 MCHC 32.6 RDW 14.2 RDW Differential 44.0 H Plt Count 385 MPV 10.4 Immature Gran % (Auto) 0.400 Neut % (Auto) 77.2 H Lymph % (Auto) 14.2 L [place] % (Auto) 7.2 Eos % (Auto) 0.9 Baso % (Auto) 0.1 Absolute Neuts (auto) 12.0 H Absolute Lymphs (auto) 2.21 Total Counted Not Reportable PT 12.6 INR 1.0 APTT 29.9 Sodium Potassium Chloride Carbon Dioxide Anion Gap BUN Creatinine Estim Creat Clear Calc Est GFR (MDRD) Af Amer Est GFR (MDRD) Non-Af BUN/Creatinine Ratio Glucose Calcium Total Bilirubin AST ALT Alkaline Phosphatase Total Protein Albumin Globulin Albumin/Globulin Ratio Blood Type O POSITIVE Antibody Screen NEGATIVE 02/02/19 12:55 WBC RBC Hgb Hct MCV MCH MCHC RDW RDW Differential Plt Count MPV Immature Gran % (Auto) Neut % (Auto) Lymph % (Auto) [place] % (Auto) Eos % (Auto) Baso % (Auto) Absolute Neuts (auto) Absolute Lymphs (auto) Total Counted PT INR APTT Sodium 138 Potassium 4.0 Chloride 107 Carbon Dioxide 20.0 L Anion Gap 11 BUN 6 L Creatinine 0.47 L Estim Creat Clear Calc 172.78 Est GFR (MDRD) Af Amer 210 Est GFR (MDRD) Non-Af 174 BUN/Creatinine Ratio 12.8 Glucose 73 L Calcium 9.1 Total Bilirubin 0.20 AST 17 ALT 8 L Alkaline Phosphatase 255 H Total Protein 7.3 Albumin 2.5 L Globulin 4.8 H Albumin/Globulin Ratio 0.5 L Blood Type Antibody Screen Course Did the patient receive Yes care? Labs Blood Type: O RH: POSITIVE RPR/VDRL/Syphilis Nonreactive Rubella status Immune HbSAg Negative Date Done: 06/21/18 Chlamydia Negative Gonorrhea Negative HIV/AIDS Non-Reactive Group B Strep: Negative Current Obstetrical History Gestational Diabetes No Incompetent Cervix No Infertility Yes: Clomid and shot at fertility specialist IUGR No Macrosomia No Hypertension/Pre-eclampsia Yes Placenta Previa/Abruption No PTL/PROM No Uterine anomaly No Oligohydramnios No Polyhydramnios No Multiple gestation No Past Medical History Asthma Yes Diabetes No Hypertension Yes Heart disease No Mitral valve prolapse No Neurologic/Seizure disorder/ No Migraines Kidney disease No Liver disease No Varicosities No Clotting disorders/Hx of DVT No Thyroid Dysfunction No Other medical diseases No Psychiatric disorders No Major trauma No Abnormal PAP smear No Sleep apnea No Mammogram in the last 2 years No Social History Marital Status: Alleged father Kevin Trejo Smoking Yes Smoking Status Former smoker Expected Infant Delivery Method: Spontaneous Vaginal Describe any other labor & delivery plans:: Magnesium IV, hydralazine Review of Systems Eyes: Denies: Vision Change Cardiovascular: Denies: Chest Pain Respiratory: Denies: Shortness of Breath Gynecological: Denies: Vaginal bleeding Neurological: Denies: Headaches Comment: US - cephalic, OP Physical Exam Vitals: Vital Signs Pulse BP 113 H 168/91 H 02/02/19 13:43 02/02/19 13:43 General: Alert, Oriented x3, Cooperative, No apparent distress HEENT: Atraumatic, Normocephalic Cardiovascular: Regular rate, Regular Rhythm, Normal S1, Normal S2 Lungs: Clear to auscultation, Normal air movement Abdomen: Soft, Non Tender, Non-Distended, Gravid Neurological: Neuro grossly intact, - - Brisk patellar DTRs, +3, no clonus WINDOW UNIT AIR CONDITIONING MECHANIC: Normal external genitalia Presentation: Cephalic Cervix Dilation (cm): 4 Station: -3 Effacement (%): 60 - moderate, midposition Assessment/Plan All Active Problems (Last Updated 02/02/19 @ 16:30 by Ana Lilia Burroughs MD) 40 weeks gestation of (Acute) Pre-eclampsia (Acute) This is a 23 year-old, G [1], at 40 2/7 weeks gestational age in labor with preeclampsia with severe features, Cat I-II FHR -Admit in labor -ISE placed - chart and labs reviewed with > 300mg proteinuria and patient with severely elevated blood pressures. Will start IV magnesium for seizure prophylaxis and hypertensive protocol with hydralazine (keep Labetalol second line given hx obesity, asthma). Medication indications, r/b reviewed. -GBS negative x 2 - initial culture obtained when patient on antibiotics and repeat obtained. Reviewed with patient and family. Low risk for early GBS infection in setting of 2 negative cultures in the last month. No indication for antibiotics. -Reviewed with patient and family labor & delivery risks including potential need for vacuum or delivery as well as risks of such. Consents reviewed, signed. -LARC declined. -Initial prolonged deceleration recovered to Cat I baseline. Continuous monitoring, status reassuring -Pain management prn -Patient and family in agreement with plan of care.
[2019-02-02] MEDS: Oxytocin 30 units/NS 500 ml 30 UNITS/500 ML IV.SOLN IV (16:50)
--- NOTE | 2019-02-02 21:21 | PCM.PN.BLA ---
Progress Note LABOR PROGRESS NOTE Reports sinus congestion. She missed her dose of Amoxicillin. She is sending a family member to retrieve this from her vehicle. She is comfortable with epidural. Denies headache, vision changes, shortness of breath or abdominal pain. AVSS GEN - NAD, AAO x 3 SVE deferred, recent exam by KEITH García 5/80/-2 FHR 150, moderate variability, + accelerations, + variable decelerations TOCO 3/10 min A/P: 23yo G1 @ 40 2/7wga with preeclampsia in labor, pitocin augmentation, Cat II FHR -Start amnioinfusion, if no improvement will d/c pitocin -No si/sx worsening preeclampsia
[2019-02-02] MEDS: Terbutaline 1 MG/ML Vial 0.25 MG SC (21:40)
[2019-02-02] MEDS: Amnioinfusion- 0.9% NS 1,000 ML IV.SOLN. 300 ML INTRA-UTER (21:48)
--- NOTE | 2019-02-02 21:50 | PCM.PN.BLA ---
Progress Note LABOR PROGRESS NOTE Aida is without complaints. Comfortable. AVSS GEN - NAD, AAO x 3 SVE 5/80/-1 TOCO 6 /10 min FHR 145, moderate variability, + variable deceleration followed by prolonged deceleration nadiring to 60 bpm A/P: 23yo G1 @ 40 2/7wga with preeclampsia in labor, tachysystole with Cat II FHR -FHR recovered with pitocin discontinuation, terbutaline. O2 and maternal repositioning -Will observe FHR without pitocin further -Discussed findings with patient and family. Reviewed potential for section if continued FHR changes. At this time, will continue to observe. -Patient and family given opportunity to ask questions and questions answered to their satisfaction.
[2019-02-02] MEDS: Fluticasone 0.05% 1 SPRAY NASAL.SRY 2 SPRAY NASAL (22:00)
[2019-02-02 22:01] VITALS: BP 117/56; PULSE 107
--- NOTE | 2019-02-02 23:05 | PCM.PN.BLA ---
Progress Note LABOR PROGRESS NOTE Aida is without complaints. AVSS GEN - NAD, AAO x 3 FHR 155, minimal variability, no accelerations, + recurrent decelerations TOCO 3/10 min SVE deferred A/P: 23yo G1 @ 40 2/7wga with preeclampsia, Cat II FHR - No improvement of FHR tracing despite repositioning, IV hydration and maternal oxygen supplementation. Advised section given patient remote from delivery. section r/b/i reviewed. Patient and family given opportunity to ask questions and questions answered to their satisfaction. -Anesthesiology notified -Will give additional dose Terbutaline to aid in intrauterine resuscitation preoperatively.
[2019-02-02] MEDS: Sodium Citrate/Citric Acid 30 ML UDC PO (23:15)
[2019-02-02] MEDS: Oxytocin 30 units/NS 500 ml 30 UNITS/500 ML IV.SOLN 167 UNITS IV (23:55)
[2019-02-03] VITALS (33 sets, daily range): BP systolic 109–149; BP diastolic 57–86; PULSE 95–113; RESP 14–26; TEMP 36.7–38.1; O2SAT 94–100
--- NOTE | 2019-02-03 00:38 | OP.PCM_ITS ---
Problem List (1) 40 weeks gestation of Status: Acute (2) Pre-eclampsia Status: Acute Qualifiers: Trimester: third trimester Qualified Code(s): O14.93 - Unspecified pre- eclampsia, third trimester Comment: severe features Report of Operation Date of Procedure: 02/03/19 Pre-Operative Diagnosis: 40 2/7wga, Cat II FHR with recurrent late decelerations Post-Operative Diagnosis: 40 2/7wga, Cat II FHR with recurrent late decelerations Description of Surgical Findings:: Infant 2765g Normal tubes and ovaries senior telecommunications engineer: Gunjan Chu Type of Anesthesia:: Epidural Anesthesiologist: Stephanie Rosas Specimen's removed: Placenta Drains: UO 60 ml Delivery Classification: MARILU Final SUNITHA: 02/01/19 Final SUNITHA Source: US <20 weeks Gestational age: 40 Weeks and 3 Days [place] doctor who attended delivery (if requested by OB): Marci Charles Indications: 23-year-old 1 at 40-2/7 weeks gestational age admitted in labor with preeclampsia. She is started on IV magnesium and progressed to 5 cm dilation with Pitocin augmentation. She began to have prolonged decelerations and the Pitocin was discontinued. She subsequently had decreased variability as well as recurrently decelerations which did not resolve with resuscitative measures. I advised her to proceed with section. Her and family risks, benefits, indications of section. She agreed to proceed. Indications for : Nonreassuring Status, - - Persistent Category II FHR Description of Procedure: The patient was taken to the operating room and spinal analgesia was administered. She is placed in a dorsal supine position with left lateral tilt. The perineum and abdomen were prepped and draped in sterile fashion. And the spinal was found to be adequate. A Pfannenstiel incision was made using a scalpel and brought down to incise the subcutaneous tissue and rectus fascia at the midline. Subcutaneous tissue was bluntly dissected off the fascia laterally. The fascial incision was dissected laterally and cephalad using curved Webber scissors. The superior leaflet of the rectus fascia was grasped using Carlos clamps and bluntly dissected and sharply dissected from the underlying rectus muscle. In a similar fashion the inferior rectus fascia was dissected from the underlying muscle. The rectus muscles were bluntly at the midline. The peritoneum was identified and entered [sharply]. The bladder blade was placed into the abdomen and the vesicouterine peritoneal fold identified. The fold was incised and a bladder flap created. Bladder blade was then repositioned to the abdomen. A low transverse hysterotomy was made using the [Metzenbaum scissors] to level of the membranes. The hysterotomy was extended bluntly cephalad and caudad. The membranes were then ruptured revealing clear fluid. The head was elevated and brought to the level of the hysterotomy and the infant delivered revealing vigorous [male] infant. The cord was doubly clamped and cut after 30 seconds. The was passed to awaiting [nursery personnel]. The placenta was [expressed] from the uterus and appeared intact on inspection. The uterus was cleared of debris. The hysterotomy was then repaired using 0 Vicryl running lock suture. A second imbricating layer was also placed for additional hemostasis. The bladder blade was removed. The anterior cul-de-sac was cleared of debris. The peritoneum and rectus muscles were reapproximated using 2-0 Vicryl running suture. The rectus fascia was closed using 0 Vicryl running suture. The subcutaneous tissue was sponge irrigated and small capillary bleeding controlled using the Bovie device. The subcutaneous tissue was reapproximated using 2-0 Vicryl. The skin was closed using 4-0 Monocryl subcuticularly by the CASH GRAIN GROWER under my supervision. Mepilex occlusive dressing was placed over the incision. The fundus was firm. The patient was then transferred to the recovery room without complication. Sponge, instrument, and needle counts were correct ?2. Amniotic Membrane Rupture Type: Spontaneous Amniotic Fluid Description: Clear Placenta Disposition: [facility] Specimen(s) sent to pathology: Placenta Drain: Marie to straight drain Fluids Replaced: 800 ml Cord Entanglement: Around neck x 1, loose Cord Vessel Description: 3 Vessels Esitmated Blood Loss (ml): 500 Infant Gender: Male (1 minute): 7 (5 minute): 9 Delayed cord clamping: Yes Pre-op Antibiotic Given: - - Ancef 3g IV x 1, Azithromycin 500mg IV x 1 Pt instructed on risks of surgery: Bleeding, Anesthesia Risks, Infection, Injury to surrounding structure(s) including bowel and bladder Complications: None - Admit VTE Documentation VTE Present on Admission: No VTE Mechan Device Prophylaxis: SCD's VTE Pharm Prophylaxis ordered?: No
--- NOTE | 2019-02-03 00:40 | PLAC_PTH ---
PATIENT: LUIS LEONE LOC: [facility] U#:[id number] AGE/SX: 23/F ROOM: WP009 RE02/02/[address]: Dr. Ana Lilia Pringle MD : 1995 BED: 1 DIS: 02/06/2019 SPEC #: [id number] RECD: 02/03/19 03:32 STATUS: MARY REQ #: [id number] JAMES: 02/03/19 00:[address]: Ana Lilia Dyson DEPT: SURGICAL PATHOLOGY RECD BY: Pankaj Herrera ENTERED: 02/03/19 09:21 SP TYPE: PLACENTA OTHR DR: Dr. Marya Day MD Tissues: Placenta, NOS Procedures: Surgery Specimen Level V HEADER OPERATION: Primary section PRE-OP DIAGNOSIS: 40 2/7wga, preeclampsia TISSUE SUBMITTED: Placenta MICROSCOPIC DIAGNOSIS Placenta: Placental disc - third trimester placenta (420 gm). Membranes - focal mild acute chorioamnionitis. Umbilical cord - three blood vessels and no pathologic diagnosis. SJ:lucia 02/07/19 MICROSCOPIC DESCRIPTION Slides are reviewed. GROSS DESCRIPTION SPECIMEN: PLACENTA / CLINICAL INFORMATION: A. Weight: 2.765 kg B. Gestational Age: 40 weeks C. Sex: Male PLACENTAL WEIGHT (POST FIXATION): 420 gm PLACENTAL DIMENSIONS: 22 x 15 x 2.2 cm PLACENTAL SHAPE: Bilobed PLACENTAL WEIGHT FOR GESTATIONAL AGE: Within 10-99th percentile MEMBRANES - Present A. Insertion: Marginal B. Site of rupture from edge: 1 cm from edge of placental disc C. Color of membrane: Moore-guevara D. Abnormalities: None UMBILICAL CORD - Present A. Color: Moore-guevara B. Insertion: Marginal C. Length: 21 cm D. Diameter: 1.2 cm E. Number of vessels: Three F. Abnormalities: None PLACENTAL DISC - Present A. Color of surface: bluish-guevara B. surface abnormalities: None C. Maternal cotyledons: Intact with minimal tears D. Attached retro placental clot: No clot E. Cut surface: Dark red and spongy F. Lesions: None G. Separate clot: Absent SECTIONS SUBMITTED: 1. Umbilical cord, end and membranes 2. Cord, maternal end and membranes 3. Central placenta, surface 4. Peripheral placenta 5. Central placenta, maternal surfaces CE:lucia 02/04/19 TC:2 CPT: 29722
--- NOTE | 2019-02-03 00:55 | DCINST_ITS ---
Discharge Diet: No Restrictions Discharge Activity: Return to Normal Activity, May Shower May resume sexual activity in: 4-6 weeks Lifting Restrictions: 10 lb Suture Line Care: Avoid Pulling/Pushing Remove Dressing in (days):: 5 Cleanse incision/area with: Soap & Water Additional Instructions: If you experience any of the following, contact your healthcare provider. * Bleeding that soaks a pad every hour for 2 hours * Fever 100.4 or higher * Unrelieved incision or abdominal pain * Swelling, redness, discharge or bleeding from your incision or episiotomy site * Your incision begins to separate * Problems urinating (including inability to urinate or burning while urinating). * Visual changes * Severe headache * Flu-like symptoms * Pain or redness in one of both of your breasts * Pain, warmth, tenderness or swelling in your legs, especially the calf area * Frequent nausea and vomiting * Symptoms of depression or anxiety If you experience any of the following, call 911 or go to the nearest Emergency Room. * Chest pain * Problems breathing * Seizure activity * Partial or complete paralysis of a body part, slurred speech, weakness or drooping of the face, or a sudden inability to walk or hold your balance Allergies/Adverse Reactions: Allergies metronidazole [From Flagyl] Allergy (Verified 02/02/19 11:42) Rash Medications to take at Discharge Acetaminophen [Tylenol Extra Strength] 1,000 mg PO Q6H PRN PRN 07/31/18 Budesonide Inhaler 180 mcg [Pulmicort Inhaler 180 mcg] 1 puff INHALATION BID #1 inhaler 07/31/18 Vits [Prenatabs FA ] 1 tab PO DAILY 09/20/18 Amoxicillin 1,000 mg PO BID 02/01/19 Follow-Up: Call to make an appointment with your doctor for an incision check in 1-2 weeks. You will also need a 6 week post- follow up appointment. Test results from this visit will be discussed in further detail at your follow- up appointment, if applicable. Please Follow Up With: Miguelangel Chapman MD When: 7-10 days for blood pressure check Please Follow Up With: Miguelangel Chapman MD When: 6 weeks for visit Primary Care Physician: Marya Day MD [Primary Care Provider] -
[2019-02-03] MEDS: Nalbuphine 10 MG/ML Ampul 5 MG IV (02:40)
[2019-02-03 03:44] LABS: Pathology Specimen OB SEE PATHOLOGY REPORT
[2019-02-03] MEDS: hydrALAZINE 10 MG Tablet 20 MG PO ×3 (06:05→21:57)
[2019-02-03] MEDS: Ketorolac 30 MG/ML Syringe IV ×3 (06:06→17:51)
--- NOTE | 2019-02-03 07:24 | CPS ---
PT REFUSED AEROSOL RX. PT STATES SHE USES AN ADVAIR INHALER AT HOME ONLY WHEN NEEDED AND WOULD PREFER TO USE HER OWN MEDICINE. PT WAS INSTRUCTED TO HAVE NURSING CALL US IF SHE WOULD CHANGE HER MIND AND LIKE AN AEROSOL RX. PT'S NURSE WAS INFORMED OF PT'S REFUSAL AND TO CALL IF SHE NEEDS AN AEROSOL.
--- NOTE | 2019-02-03 08:15 | PCM.PN.OB ---
Patient Problems: Active and Suspected Problems (Last Updated 02/02/19 @ 16:30 by Ana Lilia Burroughs MD) delivery delivered (Acute) 40 weeks gestation of (Acute) Pre-eclampsia (Acute) severe features Subjective: Denies headache, vision changes, shortness of breath. Pain is controlled with medication. No flatus yet. Tolerates CLD. Objective: AVSS - Physical Exam General: Alert, Oriented x3, Cooperative, No apparent distress HEENT: Atraumatic, Normocephalic Lungs: Clear to auscultation, Normal air movement Cardiovascular: Regular rate, Regular Rhythm, Normal S1, Normal S2 Abdomen: Bowel Sounds Present, Soft, Non Tender, Non-Distended, - - Fundus firm and nontender, lochia scant - dressing c/d/i Extremities: No edema, No Calf Tenderness Neurological: Neuro grossly intact Psych/Mental Status: Normal Affect, Appropriate, Alert and oriented to time, place, person, mood and affect Vital Signs Temp Pulse Resp BP Pulse Ox 99.3 F H 106 H 26 H 135/63 H 96 02/03/19 17:08 02/03/19 17:40 02/03/19 17:40 02/03/19 17:08 02/03/19 17:08 Oxygen Delivery Method Room Air Weight: 133.81 kg Body Mass Index (BMI) 47.6 Intake and Output for Last 24 Hours 02/01/19 02/02/19 02/03/19 23:59 23:59 23:59 Intake Total 3122 / 3122 3945 / 3945 Output Total 1369 / 1369 1895 / 1895 Balance 1753 / 1753 2049 / 2049 Medical Necessity - Tobacco Use Smoking Status: Former smoker Assessment/Plan All Active Problems (Last Updated 02/02/19 @ 16:30 by Ana Lilia Burroughs MD) delivery delivered (Acute) 40 weeks gestation of (Acute) Pre-eclampsia (Acute) 23yo POD# 1 s/p PLTCS with preeclampsia doing well. -No si/sx worsening preeclampsia. BPs wnl. Will continue PO hydralazine. Tolerates magnesium well. Will d/c if diuresing otherwise continue to 24h . -Rh positive - -Infant in SCN 2/2 hypoglycemia -Lovenox for DVT ppx -Routine postop care
[2019-02-03] MEDS: HYDROmorphone 1 MG/ML Syringe IV ×4 (08:16→22:02)
[2019-02-03] MEDS: Magnesium Sulfate 20 GM/500 ML BAG IV (09:55)
[2019-02-03] MEDS: Fluticasone 0.05% 1 SPRAY NASAL.SRY 2 SPRAY NASAL (09:58)
[2019-02-03] MEDS: Enoxaparin 40 MG/0.4 ML Syringe SC (09:59)
[2019-02-03] MEDS: Budesonide Respules 0.5 MG/2 ML AMPUL.NEB. INHALATION (17:39)
[2019-02-03] MEDS: Lactated Ringers 1,000 ML 100 ML IV (17:51)
--- NOTE | 2019-02-03 18:04 | NURSING ---
Dr. Elke Pringle rounded with nursing staff about pt. Informed of pt pain level, vitals, specifically blood pressures and urine output. Urine slowing hourly on totals and more concentrated. Order obtained for 500cc LR bolus over 30 minutes. Will leave Mag Sulfate on for 24 hours and then may be D/C'd.
[2019-02-03] MEDS: oxyCODONE 5 MG Tablet PO (20:20)
--- NOTE | 2019-02-03 21:20 | NURSING ---
2114, Dr Lin gave verbal order ok to dc mag sulfate at this time.
[2019-02-04] VITALS (9 sets, daily range): BP systolic 113–144; BP diastolic 57–79; PULSE 70–116; RESP 14–22; TEMP 36.1–37; O2SAT 94
[2019-02-04] MEDS: Ketorolac 30 MG/ML Syringe IV ×4 (00:23→17:53)
[2019-02-04] MEDS: 0.9% Saline Lock 10 ML Syringe IV ×5 (00:24→17:54)
[2019-02-04] MEDS: oxyCODONE 5 MG Tablet PO ×4 (03:41→20:23)
[2019-02-04] MEDS: hydrALAZINE 10 MG Tablet 20 MG PO ×3 (05:38→22:34)
[2019-02-04] MEDS: Ondansetron 4 MG/2 ML Vial IV ×2 (05:38→16:49)
[2019-02-04] MEDS: HYDROmorphone 1 MG/ML Syringe IV (05:38)
[2019-02-04 06:07] LABS: Hematocrit 28.7 % (37-47); Hemoglobin 9.3 g/dl (12.0-15.0); Mean Corp Hgb Conc 32.4 g/gl (32-36); Mean Corpuscular Hgb 27.9 pg (27.0-32.0); Mean Corpuscular Volume 86.2 fL (81-99); Mean Platelet Vol. 9.7 fl (6.2-12.0); Platelet Count 353 K/mm3 (150-450); RBC Distribution Width CV 14.7 % (11.6-14.6); RBC Distribution Width SD 44.7 fl (35.1-43.9); Red Blood Count 3.33 M/mm3 (4.2-5.4); White Blood Count 14.8 K/mm3 (4.4-11.0)
[2019-02-04 06:09] LABS: Scan Indicated on CBC? Y/N NO
--- NOTE | 2019-02-04 07:52 | PCM.PN.OB ---
Patient Problems: Active and Suspected Problems (Last Updated 02/02/19 @ 16:30 by Ana Lilia Burroughs MD) delivery delivered (Acute) 40 weeks gestation of (Acute) Pre-eclampsia (Acute) severe features Subjective: Aida reports incisional pain well controlled with medications, but has intermittent upper abdominal pain that is severe and not controlled with oral medications. Feels better with Dilaudid IV. No flatus yet. OOB and voids without difficulty, but reports she can hardly walk with upper abdominal pain and feels like she is abandoning her infant because pain prevents her from visiting the nursery. Denies heavy lochia, headache, vision changes. Objective: AVSS - Physical Exam General: Alert, Oriented x3, Cooperative, No apparent distress HEENT: Atraumatic, Normocephalic Lungs: Clear to auscultation, Normal air movement Cardiovascular: Regular rate, Regular Rhythm, Normal S1, Normal S2 Abdomen: Soft, Non Tender, Non-Distended, Bowel Sounds Not Present, - - Fundus firm and nontender, incisional dressing c/d/i Extremities: No edema, No Calf Tenderness Neurological: Neuro grossly intact Psych/Mental Status: Normal Affect, Appropriate, Alert and oriented to time, place, person, mood and affect Vital Signs Temp Pulse Resp BP Pulse Ox 98.6 F 116 H 18 144/79 H 94 02/04/19 02:24 02/04/19 05:38 02/04/19 02:24 02/04/19 05:38 02/04/19 02:24 Oxygen Delivery Method Room Air Weight: 133.81 kg Body Mass Index (BMI) 47.6 Intake and Output for Last 24 Hours 02/02/19 02/03/19 02/04/19 23:59 23:59 23:59 Intake Total 3122 / 3122 5053 / 5053 Output Total 1369 / 1369 2685 / 2685 900 / 900 Balance 1753 / 1753 2368 / 2368 -900 / -900 Laboratory Tests Past 24 Hrs 02/04/19 05:55 WBC 14.8 H RBC 3.33 L Hgb 9.3 L Hct 28.7 L MCV 86.2 MCH 27.9 MCHC 32.4 RDW 14.7 H RDW Differential 44.7 H Plt Count 353 MPV 9.7 Medical Necessity - Tobacco Use Smoking Status: Former smoker Assessment/Plan All Active Problems (Last Updated 02/02/19 @ 16:30 by Ana Lilia Burroughs MD) delivery delivered (Acute) 40 weeks gestation of (Acute) Pre-eclampsia (Acute) 23yo POD# 2 s/p PLTCS with preeclampsia s/p IV magnesium -Continue PO hydralazine for elevated BPs. -Rh positive - -Lovenox for DVT ppx -Reviewed upper abdominal pain c/w gas pain and that chewing gum, continued ambulation are best treatments for this NOT opioids. Support offered. -Routine postop care
[2019-02-04] MEDS: Budesonide Respules 0.5 MG/2 ML AMPUL.NEB. INHALATION ×2 (08:09→20:50)
[2019-02-04] MEDS: Acetaminophen 500 MG Tablet 1000 MG PO (08:42)
[2019-02-04] MEDS: Enoxaparin 40 MG/0.4 ML Syringe SC (10:26)
[2019-02-04] MEDS: Fluticasone 0.05% 1 SPRAY NASAL.SRY 2 SPRAY NASAL (10:33)
[2019-02-04] MEDS: Senna/Docusate Sodium 1 Tablet PO (14:24)
[2019-02-05] VITALS (10 sets, daily range): BP systolic 111–159; BP diastolic 65–87; PULSE 94–111; RESP 16–18; TEMP 36.5–37.4; O2SAT 95
[2019-02-05] MEDS: 0.9% Saline Lock 10 ML Syringe IV (00:01)
[2019-02-05] MEDS: Ketorolac 30 MG/ML Syringe IV (00:01)
[2019-02-05] MEDS: oxyCODONE 5 MG Tablet PO ×4 (00:01→21:48)
[2019-02-05] MEDS: hydrALAZINE 10 MG Tablet 20 MG PO ×3 (06:46→21:49)
[2019-02-05] MEDS: Budesonide Respules 0.5 MG/2 ML AMPUL.NEB. INHALATION ×2 (07:39→19:22)
[2019-02-05] MEDS: Senna/Docusate Sodium 1 Tablet PO (10:02)
[2019-02-05] MEDS: Fluticasone 0.05% 1 SPRAY NASAL.SRY 2 SPRAY NASAL (10:17)
[2019-02-05] MEDS: Enoxaparin 40 MG/0.4 ML Syringe SC (10:58)
--- NOTE | 2019-02-05 11:02 | PCM.PN.OB ---
Patient Problems: Active and Suspected Problems (Last Updated 02/02/19 @ 16:30 by Ana Lilia Burroughs MD) delivery delivered (Acute) 40 weeks gestation of (Acute) Pre-eclampsia (Acute) severe features Subjective: Patient without complaints. Tolerating diet well. Positive flatus. Breast-feeding going well. Baby still in special care nursery. - Physical Exam Vital Signs Temp Pulse Resp BP Pulse Ox 99.4 F H 94 16 154/86 H 95 02/05/19 01:50 02/05/19 07:40 02/05/19 07:40 02/05/19 06:48 02/05/19 07:40 Oxygen Delivery Method Room Air Weight: 295 lb Body Mass Index (BMI) 47.6 Intake and Output for Last 24 Hours 02/03/19 02/04/19 02/05/19 23:59 23:59 23:59 Intake Total 5053 / 5053 Output Total 2685 / 2685 900 / 900 Balance 2368 / 2368 -900 / -900 Good urine output. Blood pressure okay. Medical Necessity - Tobacco Use Smoking Status: Former smoker Assessment/Plan All Active Problems (Last Updated 02/02/19 @ 16:30 by Ana Lilia Burroughs MD) delivery delivered (Acute) 40 weeks gestation of (Acute) Pre-eclampsia (Acute) Doing well post operative day #2 status post primary section. Continuing present care. Will reduce narcotic dose further.
[2019-02-05] MEDS: Ibuprofen 400 MG Tablet PO ×3 (15:15→23:45)
[2019-02-06] VITALS (9 sets, daily range): BP systolic 132–150; BP diastolic 76–92; PULSE 81–102; RESP 16–20; TEMP 36.2–37; O2SAT 96
[2019-02-06] MEDS: Ibuprofen 400 MG Tablet PO ×5 (03:20→19:42)
[2019-02-06] MEDS: oxyCODONE 5 MG Tablet PO (05:14)
[2019-02-06] MEDS: hydrALAZINE 10 MG Tablet 20 MG PO ×3 (06:41→14:56)
--- NOTE | 2019-02-06 09:56 | PCM.PN.OB ---
Patient Problems: Active and Suspected Problems (Last Updated 02/02/19 @ 16:30 by Ana Lilia Burroughs MD) delivery delivered (Acute) 40 weeks gestation of (Acute) Pre-eclampsia (Acute) severe features Subjective: Patient without complaints. Tolerating diet well. Breast-feeding going well. Baby still in special care nursery with anticipated release to home tomorrow. - Physical Exam Vital Signs Temp Pulse Resp BP Pulse Ox 97.1 F L 95 18 140/88 H 96 02/06/19 09:01 02/06/19 09:01 02/06/19 09:01 02/06/19 09:01 02/06/19 09:01 Oxygen Delivery Method Room Air Weight: 295 lb Body Mass Index (BMI) 47.6 Intake and Output for Last 24 Hours 02/04/19 02/05/19 02/06/19 23:59 23:59 23:59 Output Total 900 / 900 Balance -900 / -900 Medical Necessity - Tobacco Use Smoking Status: Former smoker Assessment/Plan All Active Problems (Last Updated 02/02/19 @ 16:30 by Ana Lilia Burroughs MD) delivery delivered (Acute) 40 weeks gestation of (Acute) Pre-eclampsia (Acute) Doing well postoperative day #3 status post primary section. Continuing present care.
[2019-02-06] MEDS: Fluticasone 0.05% 1 SPRAY NASAL.SRY 2 SPRAY NASAL (10:17)
[2019-02-06] MEDS: Enoxaparin 40 MG/0.4 ML Syringe SC (10:17)
[2019-02-06] MEDS: Senna/Docusate Sodium 1 Tablet PO (14:56)
[2019-02-06] MEDS: Acetaminophen 500 MG Tablet 1000 MG PO (17:44)
--- NOTE | 2019-02-06 19:42 | PCM.DC.BLA ---
Discharge Summary Date of Admission: 02/02/19 Date of Discharge: 02/06/19 Summary: Admission Diagnosis: 40 2/7Wga with -Induced Hypertension for Induction Discharge Diagnosis: 40 2/7Wga, -Induced Hypertension, cat II FHR with Recurrent Late Decelerations Procedure: Primary Low Transverse Cervical Section HPI: Uneventful care except -induced hypertension just before induction. PE: Unremarkable. Hospital Course: The patient is a 23 year old G 1 P 0 who presented to [facility] at 40+ weeks gestation with -induced hypertension. She subsequently had a primary for recurrent late decelerations. She had progressed to 5 cm before this occurred and was on magnesium sulfate. Postoperatively she did well demonstrating a stable HGB on POD 1 and bowel fxn by POD 3. Blood pressures remained stable on Procardia 20 mg 3 times daily. Baby remained in special care nursery until postoperative day #4 at which time it was felt she was ready for discharge to hotel status. Homegoing Instruction: She was instructed not to drive for several days or if using narcotic pain medication, not to put anything in the vagina for 4 weeks, not to lift >25 lbs for 6 weeks and to call the office for an appointment in 2 weeks and 6 weeks. Discharge Medications: She was given a prescription for Oxycodone and Colace and also plans to use Aleve or Motrin or Tylenol at home as needed for pain and constipation. We also plan to continue Procardia XL 30 mg twice daily at home. She is to follow-up in the office this Thursday for a blood pressure check. Patient Problems: Active and Suspected Problems (Last Updated 02/02/19 @ 16:30 by Ana Lilia Burroughs MD) delivery delivered (Acute) 40 weeks gestation of (Acute) Pre-eclampsia (Acute) severe features - Physical Exam Vital Signs Temp Pulse Resp BP Pulse Ox 97.1 F L 97 18 140/88 H 96 02/06/19 09:01 02/06/19 14:56 02/06/19 09:01 02/06/19 09:01 02/06/19 09:01 Oxygen Delivery Method Room Air Weight: 295 lb Body Mass Index (BMI) 47.6 Intake and Output for Last 24 Hours 02/04/19 02/05/19 02/06/19 23:59 23:59 23:59 Output Total 900 / 900 Balance -900 / -900
[2019-02-06] MEDS: Polyethylene Glycol 3350 17 GM PACKET PO (21:55)
[2019-02-06] MEDS: NIFEdipine 30 MG Tablet PO (21:55)
--- NOTE | 2019-02-06 22:18 | NURSING ---
to call office tomorrow and make apt to be seen in office in [place] for bp check, and may make apt then for 1-2 weeks and 6wk post check up.
[2019-02-06 22:44] LABS: Color, Urine Yellow (Yellow); Glucose, Dipstick Normal (Normal); Ketone-Dipstick 5 mg/dl (Negative); Leukocyte Esterase-Dipstick 500 /ul (Negative); Nitrite-Dipstick Positive (Negative); Occult Blood-Urine 250 /ul (Negative); Protein-Dipstick 100 mg/dl (Negative); Urine Bilirubin Dipstick Negative (Negative); Urine Clarity Cloudy (Clear); Urine Urobilinogen 1 mg/dl (Normal); Urine pH 6.5 (5.0 - 8.0)
[2019-02-06 22:59] LABS: White Blood Cells 50-100 SEEN /hpf (0-5)
[2019-02-06 23:00] LABS: Red Blood Cells-Urine 50-100 SEEN /hpf (0-5)
[2019-02-06 23:08] LABS: Bacteria 4+ /hpf (None Seen); Mucous, Urine 1+ /hpf (<or=2+); Squamous Epithelial Cells - UA 0-5 SEEN /hpf (5-10)
--- NOTE | 2019-02-07 00:29 | NURSING ---
late entry 2004-dr ragland on unit aware of pt bp reading, to give hydralazine xl 30 mg po x1 and to start bid tomorrow,dr ralgand will write prescription for pt to take and get filled. pt ok to be discharged and to come to office thursday this week for bp check-ok to go to [place] office and have this done. 2014-called dr ragland verified previous hydralazine order received, order was Procardia 30mg XL to be given tonight and pt to fill prescription tomorrow and to be taking this bid at home. also made aware of pt having burning w voiding, order received to do ua and C&S.
== END 2019-02-06 10:45 | disposition home or self-care (01) | DRG 788 ==
LOC: WPOUT 11:57
PROVIDERS: Obstetrics & Gynecology; Admitting Provider Obstetrics & Gynecology; Family Provider Internal Medicine; PCP Internal Medicine; Referring Provider Obstetrics & Gynecology; Visit Provider Obstetrics & Gynecology
DX: O14.14 Severe pre-eclampsia complicating childbirth (principal); O48.0 Post-term pregnancy; Z3A.40 40 weeks gestation of pregnancy; O76 Abnormality in fetal heart rate and rhythm complicating labor and delivery; O69.81X0 Labor and delivery complicated by cord around neck, without compression, not applicable or unspecified; Z37.0 Single live birth; O75.89 Other specified complications of labor and delivery; J45.909 Unspecified asthma, uncomplicated; K21.9 Gastro-esophageal reflux disease without esophagitis; Z79.51 Long term (current) use of inhaled steroids; Z87.891 Personal history of nicotine dependence
CPT/HCPCS: 59050; 76815; 80053; 81001; 85025; 85027; 85610; 85730; 86850; 86900; 87077; 87086; 87088; 87186; 88307; 94640; 99218; J7030; J7120; A4216; G0378; J2405

== ENCOUNTER → 2019-09-14 | Outpatient (CLI) | payer BC, SELFPAY ==
[2019-09-14 12:20] LABS: Chlamydia Trachomatis by PCR Negative (Negative); Neisserai gonorrhoeae by PCR Negative (Negative); Probe Check PASS; Sample Adequacy Control PASS; Specimen Processing Control PASS
== END | disposition home or self-care (01) ==
LOC: MFPLAB 09:12 → WOBLAB 09-16 16:30
PROVIDERS: Family Provider Internal Medicine; PCP Internal Medicine; Visit Provider Obstetrics & Gynecology
DX: Z11.3 Encounter for screening for infections with a predominantly sexual mode of transmission (principal)
CPT/HCPCS: 87491; 87591

== ENCOUNTER → 2019-09-19 | Outpatient (CLI) | payer BC, SELFPAY ==
[2019-09-19 17:19] LABS: Color, Urine Yellow (Yellow); Glucose, Dipstick Normal (Normal); Ketone-Dipstick Negative (Negative); Leukocyte Esterase-Dipstick 25 /ul (Negative); Nitrite-Dipstick Negative (Negative); Occult Blood-Urine 10 /ul (Negative); Protein-Dipstick 15 mg/dl (Negative); Urine Bilirubin Dipstick Negative (Negative); Urine Clarity Clear (Clear); Urine Urobilinogen Normal (Normal)
[2019-09-19 17:38] LABS: Absolute Lymphocyte Count 2.43 X10^3/uL (0.83-4.51); Absolute Neutrophil Count 4.8 X10^3/uL (2.0-7.7); Basophil# 0.02 X10^3/uL; Basophil% 0.2 % (0-1); Eosinophils% 2.4 % (0-5); Hematocrit 38.1 % (37-47); Lymphocyte # 2.43 X10^3/ul (4.0); Lymphocyte % 29.5 % (19-41); Mean Corp Hgb Conc 31.5 g/dL (32-36); Mean Corpuscular Hgb 27.1 pg (27.0-32.0); Mean Platelet Vol. 10.2 fl (6.2-12.0); Monocyte% 8.5 % (0-10); NRBC Flagged by Analyzer 0 % (0-5); Neutrophil # 4.83 X10^3/uL (2.7-7.7); Neutrophil % 58.8 % (47-70); Platelet Count 382 K/mm3 (150-450); RBC Distribution Width CV 15.2 % (11.6-14.6); Red Blood Count 4.43 M/mm3 (4.2-5.4); Thyroid Stim Hormone (TSH) 1.58 uIU/mL (0.358-3.74); White Blood Count 8.2 K/mm3 (4.4-11.0)
[2019-09-20 09:39] LABS: HIV - WCH Non-Reactive (Nonreactive); Hepatitis B Surface Antigen Non-Reactive (Nonreactive); Hepatitis C Antibody Non-Reactive (Nonreactive); Rubella IgG 67.6 IU/mL
[2019-09-22 03:11] LABS: Prenatal RPR NONREACTIVE (NONREACTIVE)
== END | disposition home or self-care (01) ==
LOC: WOBLAB 16:15
PROVIDERS: PCP Internal Medicine; Visit Provider Obstetrics & Gynecology
DX: Z34.81 Encounter for supervision of other normal pregnancy, first trimester (principal)
CPT/HCPCS: 36415; 81002; 84443; 85025; 86703; 86762; 86803; 87340

== ENCOUNTER 2020-01-06 17:51 | Outpatient (CLI) | payer BC, SELFPAY ==
[2020-01-06] VITALS (15 sets, daily range): BP systolic 119–133; BP diastolic 72–81; PULSE 103–114; TEMP 37–37.2; O2SAT 96–98; BMI 49.5
[2020-01-06] MEDS: Acetaminophen 500 MG Tablet 1000 MG PO (19:51)
[2020-01-06 19:56] LABS: Mucous, Urine 0 SEEN /hpf (<or=2+); Red Blood Cells-Urine 0 SEEN /hpf (0-5)
[2020-01-06 20:02] LABS: Color, Urine Yellow (Yellow); Glucose, Dipstick Normal (Normal); Ketone-Dipstick 5 mg/dl (Negative); Leukocyte Esterase-Dipstick 100 /ul (Negative); Nitrite-Dipstick Negative (Negative); Occult Blood-Urine 10 /ul (Negative); Protein-Dipstick Negative (Negative); Urine Bilirubin Dipstick Negative (Negative); Urine Clarity Sl. Cloudy (Clear); Urine Urobilinogen Normal (Normal)
[2020-01-06 20:46] LABS: White Blood Cells 0-5 SEEN /hpf (0-5)
[2020-01-06 20:48] LABS: Bacteria RARE /hpf (None Seen); Squamous Epithelial Cells - UA 0-5 SEEN /hpf (5-10)
--- NOTE | 2020-01-06 20:56 | OB.TRI.HP_ITS ---
History of Present Illness Date of Service: 01/06/20 Was patient seen by the physician?: Yes Reason For Visit: R/O PRE E Date of Service: 01/06/20 Final SUNITHA Source: US <20 weeks History of Present Illness: Patient presents from emergency roomthis evening at 22 to 23 weeks gestation with elevated blood pressures of 140/1 100s noted in the emergency room. Patient indicates that she had to walk quite a long distance in the hospital to get to the emergency room and was somewhat anxious when she got there and they immediately took her blood pressure and sent her to labor and delivery. Patient denies any -induced hypertension symptoms and was actually headed to the emergency room because of stuffiness and a low-grade fever of approximately 99.5F. Patient denies any urinary symptoms but has had some low back pain. Patient is morbidly obese. Allergies metronidazole [From Flagyl] Allergy (Verified 01/06/20 18:00) Rash - Pertinent Past Medical History Medical History: Past Medical History (Last Updated 02/02/19 @ 16:[address] Ana Lilia Burroughs MD) Asthma Nephrolithiasis Oppositional defiant disorder Surgical History: Past Surgical History (Last Updated 02/02/19 @ 16:[address] Ana Lilia Burroughs MD) H/O lithotripsy Laboratory Studies: Laboratory Tests 01/06/20 Range/Units 19:45 Urine Color Yellow (Yellow) Urine Clarity Sl. Cloudy (Clear) Urine pH 7.0 (5.0 - 8.0) Ur Specific [place] 1.010 (1.002-1.030) Urine Protein Negative (Negative) mg/dl Urine Glucose (UA) Normal (Normal) mg/dl Urine Ketones 5 H (Negative) mg/dl Urine Occult Blood 10 H (Negative) /ul Urine Nitrite Negative (Negative) Urine Bilirubin Negative (Negative) mg/dL Urine Urobilinogen Normal (Normal) mg/dl Ur Leukocyte Esterase 100 H (Negative) /ul Urine RBC 0 SEEN (0-5) /hpf Urine WBC 0-5 SEEN (0-5) /hpf Ur Squamous Epith Cells 0-5 SEEN (5-10) /hpf Urine Bacteria RARE (None Seen) /hpf Urine Mucus 0 SEEN (<or=2+) /hpf Physical Exam Vitals: Vital Signs Temp Pulse BP Pulse Ox 99.0 F 106 H 120/72 97 01/06/20 19:37 01/06/20 20:25 01/06/20 20:25 01/06/20 18:20 NST - FHR Rate Baby A NST Reactive:: Appropriate for gestational age Impression/Plan 22 to 23-week gestation with normal blood pressures upon presentation to labor and delivery. No evidence of -induced hypertension. UA was equivocal bowl and urine for culture and sensitivity was sent. Rapid flu test was negative. No contractions noted on monitor and no bleeding noted. Good heart tones were noted. Patient encouraged use Tylenol at home for discomfort and viral symptoms and also encouraged to use Benadryl to help with stuffiness.
== END 2020-01-06 20:36 | disposition home or self-care (01) ==
LOC: WPOUT 17:53 → WP 17:53
PROVIDERS: PCP Internal Medicine; Referring Provider Obstetrics & Gynecology; Visit Provider Obstetrics & Gynecology
DX: O26.892 Other specified pregnancy related conditions, second trimester (principal); Z3A.22 22 weeks gestation of pregnancy; R03.0 Elevated blood-pressure reading, without diagnosis of hypertension; E66.01 Morbid (severe) obesity due to excess calories; O99.212 Obesity complicating pregnancy, second trimester; R50.9 Fever, unspecified; J45.909 Unspecified asthma, uncomplicated; O99.512 Diseases of the respiratory system complicating pregnancy, second trimester; F91.3 Oppositional defiant disorder; O99.342 Other mental disorders complicating pregnancy, second trimester; Z79.899 Other long term (current) drug therapy
CPT/HCPCS: 59050; 81001; 87086; 87088; 87804; 99218; G0378

== ENCOUNTER → 2020-02-08 14:00 | Outpatient (CLI) | payer BC, SELFPAY ==
[2020-01-06 17:59] VITALS: BMI 49.5
[2020-02-09 14:23] LABS: Hematocrit 36.8 % (37-47); Hemoglobin 11.9 g/dL (12.0-15.0); Mean Corp Hgb Conc 32.3 g/dL (32-36); Mean Corpuscular Hgb 28.3 pg (27.0-32.0); Mean Corpuscular Volume 87.6 fL (81-99); Platelet Count 384 K/mm3 (150-450); RBC Distribution Width CV 13.4 % (11.6-14.6); RBC Distribution Width SD 42.9 fl (35.1-43.9); White Blood Count 12.9 K/mm3 (4.4-11.0)
[2020-02-09 14:35] LABS: Glucose Challenge Gest 1H 50g 128 mg/dL (70-140)
== END ==
PROVIDERS: PCP Internal Medicine; Referring Provider Obstetrics & Gynecology; Visit Provider Obstetrics & Gynecology
DX: Z34.82 Encounter for supervision of other normal pregnancy, second trimester (principal)
CPT/HCPCS: 82950; 85027

== ENCOUNTER 2020-03-09 15:30 | Outpatient (CLI) | payer BC, SELFPAY ==
[2020-01-06 17:59] VITALS: BMI 49.5
[2020-03-09 16:00] VITALS: BMI 48.6
[2020-03-09 16:04] VITALS: BP 141/78; PULSE 79
--- NOTE | 2020-03-09 18:23 | OB.TRI.HP_ITS ---
- Problem List (1) Non-stress test reactive Status: Acute History of Present Illness Date of Service: 03/09/20 Was patient seen by the physician?: No Reason For Visit: NST Date of Service: 03/09/20 Final SUNITHA: 05/01/20 Final SUNITHA Source: [place] <20 weeks Gestational age: 32 Weeks and 3 Days History of Present Illness: Sent from office for NST Allergies metronidazole [From Flagyl] Allergy (Verified 03/09/20 17:13) Rash - Pertinent Past Medical History Medical History: Past Medical History (Last Updated 02/02/19 @ 16:[address] Ana Lilia Pringle MD) Asthma Nephrolithiasis Oppositional defiant disorder Surgical History: Past Surgical History (Last Updated 02/02/19 @ 16:[address] Ana Lilia Pringle MD) H/O lithotripsy Review of Systems Constitutional: Denies: Chills, Fever, Weight Change HEENT: Denies: Head Aches, Sinus Congestion, Sinus Drainage Cardiovascular: Denies: Chest Pain, Palpitations Respiratory: Denies: Cough, Shortness of breath at rest, Sputum production Gastrointestinal: Denies: Abdominal Pain, Nausea, Vomiting Genitourinary: Denies: Dysuria Musculoskeletal: Denies: Joint Pain, Joint Tenderness Skin: Denies: Rash, Wounds Neurological: Denies: Numbness, Tingling, Focal weakness Psychiatric: Denies: Anxiety, Depression, Homicidal Ideations, Suicidal Ideations Hematologic/ Lymphatic: Denies: Easy Bruising, Easy Bleeding Physical Exam Vitals: Vital Signs Pulse BP 79 141/78 H 03/09/20 16:04 03/09/20 16:04 General: Alert, Oriented x3, No apparent distress HEENT: Atraumatic, Normocephalic. 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 Negative for: Vulvar lesions NST - FHR Rate Baby A Baseline: 120 Variability:: Moderate Accelerations:: 15 x 15 Decelerations:: None NST Reactive:: Yes FHR Category:: Category I Uterine Activity:: quiet Impression/Plan Category I reactive NST, okay to discharge home. To have bi-weekly NSTs in [place].
== END 2020-03-09 16:55 | disposition home or self-care (01) ==
PROVIDERS: PCP Internal Medicine; Referring Provider Obstetrics & Gynecology; Visit Provider Obstetrics & Gynecology
DX: O26.90 Pregnancy related conditions, unspecified, unspecified trimester (principal); Z3A.00 Weeks of gestation of pregnancy not specified
CPT/HCPCS: 59025; 59050; 99218; G0378

== ENCOUNTER 2020-03-12 17:25 | Outpatient (CLI) | payer BC, SELFPAY ==
[2020-03-12] VITALS (7 sets, daily range): BP systolic 117–157; BP diastolic 64–84; PULSE 83–96; TEMP 36.9; O2SAT 99; BMI 48.4
[2020-03-12 18:53] LABS: Hematocrit 36.4 % (37-47); Hemoglobin 11.9 g/dL (12.0-15.0); Mean Corp Hgb Conc 32.7 g/dL (32-36); Mean Corpuscular Hgb 28.5 pg (27.0-32.0); Mean Corpuscular Volume 87.3 fL (81-99); Mean Platelet Vol. 10.1 fl (6.2-12.0); Platelet Count 357 K/mm3 (150-450); RBC Distribution Width CV 13.2 % (11.6-14.6); RBC Distribution Width SD 41.8 fl (35.1-43.9); Red Blood Count 4.17 M/mm3 (4.2-5.4); White Blood Count 11.2 K/mm3 (4.4-11.0)
[2020-03-12 19:04] LABS: Protein, Urine (Random) 24.3 mg/dL (<11.9); Protein:Creat Ratio 263 mg/g CRE (0-200)
[2020-03-12 19:14] LABS: AST(SGOT) 11 U/L (15-37); Alanine Aminotransfer ALT/SGPT 8 U/L (13-56); Creatinine, Serum 0.44 mg/dL (0.55-1.02); EST Glomerular Filtration Rate 186 mL/min (>60); Est Glom Filt Rate - Afr Amer 225 mL/min (>60); Estimated Creatinine Clearance 182.97 ml/min; Uric Acid 3.1 mg/dL (2.6-6.0)
[2020-03-12 19:20] LABS: International Normalized Ratio 1.1; Prothrombin Time (Protime)PT. 13.4 SECONDS (11.7-14.9)
[2020-03-12 19:22] LABS: Partial Thromboplast Time 31.6 Seconds (24.1-36.2)
--- NOTE | 2020-03-12 19:29 | OB.TRI.HP_ITS ---
- Problem List (1) 32 weeks gestation of Status: Acute (2) Gestational hypertension Status: Acute Qualifiers: Trimester: third trimester Qualified Code(s): O13.3 - Gestational [-induced] hypertension without significant proteinuria, third trimester (3) Non-stress test reactive Status: Acute History of Present Illness Date of Service: 03/12/20 Was patient seen by the physician?: No Reason For Visit: RULE OUT PIH Date of Service: 03/12/20 Final SUNITHA: 05/01/20 Final SUNITHA Source: US <20 weeks Gestational age: 32 Weeks and 6 Days History of Present Illness: Called in to OB office with BPs in the range of 160s/90s. Was sent to for pre-eclampsia workup. Allergies metronidazole [From Flagyl] Allergy (Verified 03/12/20 18:10) Rash - Pertinent Past Medical History Medical History: Past Medical History (Last Updated 02/02/19 @ 16:[address] Ana Lilia Pringle MD) Asthma Nephrolithiasis Oppositional defiant disorder Surgical History: Past Surgical History (Last Updated 02/02/19 @ 16:[address] Ana Lilia Pringle MD) H/O lithotripsy Laboratory Studies: Laboratory Tests 03/12/20 03/12/20 03/12/20 Range/Units 18:16 18:16 18:16 WBC 11.2 H (4.4-11.0) K/mm3 RBC 4.17 L (4.2-5.4) M/mm3 Hgb 11.9 L (12.0-15.0) g/dL Hct 36.4 L (37-47) % MCV 87.3 (81-99) fL MCH 28.5 (27.0-32.0) pg MCHC 32.7 (32-36) g/dL RDW Std Deviation 41.8 (35.1-43.9) fl RDW Coeff of Dennis 13.2 (11.6-14.6) % Plt Count 357 (150-450) K/mm3 MPV 10.1 (6.2-12.0) fl PT 13.4 (11.7-14.9) SECONDS INR 1.1 APTT 31.6 (24.1-36.2) Seconds Creatinine 0.44 L (0.55-1.02) mg/dL Estim Creat Clear Calc 182.97 ml/min Est GFR (MDRD) Af Amer 225 (>60) mL/min Est GFR (MDRD) Non-Af 186 (>60) mL/min Uric Acid 3.1 (2.6-6.0) mg/dL AST 11 L (15-37) U/L ALT 8 L (13-56) U/L U Random Total Protein (<11.9) mg/dL Urine Creatinine (NO RANGE EST.) mg/dL Protein/Creatinin Ratio (0-200) mg/g CRE 03/12/20 Range/Units 18:15 WBC (4.4-11.0) K/mm3 RBC (4.2-5.4) M/mm3 Hgb (12.0-15.0) g/dL Hct (37-47) % MCV (81-99) fL MCH (27.0-32.0) pg MCHC (32-36) g/dL RDW Std Deviation (35.1-43.9) fl RDW Coeff of Dennis (11.6-14.6) % Plt Count (150-450) K/mm3 MPV (6.2-12.0) fl PT (11.7-14.9) SECONDS INR APTT (24.1-36.2) Seconds Creatinine (0.55-1.02) mg/dL Estim Creat Clear Calc ml/min Est GFR (MDRD) Af Amer (>60) mL/min Est GFR (MDRD) Non-Af (>60) mL/min Uric Acid (2.6-6.0) mg/dL AST (15-37) U/L ALT (13-56) U/L U Random Total Protein 24.3 H (<11.9) mg/dL Urine Creatinine 92.50 (NO RANGE EST.) mg/dL Protein/Creatinin Ratio 263 H (0-200) mg/g CRE Review of Systems Constitutional: Denies: Chills, Fever, Weight Change HEENT: Denies: Head Aches, Sinus Congestion, Sinus Drainage Cardiovascular: Denies: Chest Pain, Palpitations Respiratory: Denies: Cough, Shortness of breath at rest, Sputum production Gastrointestinal: Denies: Abdominal Pain, Nausea, Vomiting Genitourinary: Denies: Dysuria Musculoskeletal: Denies: Joint Pain, Joint Tenderness Skin: Denies: Rash, Wounds Neurological: Denies: Numbness, Tingling, Focal weakness Psychiatric: Denies: Anxiety, Depression, Homicidal Ideations, Suicidal Ideations Hematologic/ Lymphatic: Denies: Easy Bruising, Easy Bleeding Physical Exam Vitals: Vital Signs Temp Pulse BP Pulse Ox 98.4 F 91 124/69 H 99 03/12/20 17:50 03/12/20 19:20 03/12/20 19:20 03/12/20 17:50 General: Alert, Oriented x3, No apparent distress HEENT: Atraumatic, Normocephalic. 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 Negative for: Vulvar lesions NST - FHR Rate Baby A Baseline: 125 Variability:: Moderate Accelerations:: 15 x 15 Decelerations:: None NST Reactive:: Yes FHR Category:: Category I Uterine Activity:: quiet Impression/Plan A/P: at 32.6 weeks gestation Gestational hypertension, currently taking Labetalol 100mg BID Serial BPs WNL Pre-eclampsia labs all WNL except mildly elevated protein/creatinine ratio To bring BP cuff into office at next appt to check Denies headache, blurred vision, RUQ pain or edema NST reactive Category I, okay to cancel NST tomorrow at [facility] Discharge home
[2020-03-15 10:11] VITALS: BP 134/77; PULSE 105; TEMP 36.5; O2SAT 98
[2020-03-15 10:19] VITALS: BP 134/77; PULSE 105
== END 2020-03-12 19:43 | disposition home or self-care (01) ==
LOC: WPOUT 17:46 → OBT 17:47
PROVIDERS: PCP Internal Medicine; Referring Provider Obstetrics & Gynecology; Visit Provider Obstetrics & Gynecology
DX: O13.3 Gestational [pregnancy-induced] hypertension without significant proteinuria, third trimester (principal); Z3A.32 32 weeks gestation of pregnancy
CPT/HCPCS: 36415; 59025; 59050; 82565; 82570; 84156; 84450; 84460; 84550; 85027; 85610; 85730; 99218; G0378

== ENCOUNTER 2020-03-15 10:10 | Outpatient (CLI) | payer BC, SELFPAY ==
[2020-03-12 18:07] VITALS: BMI 48.4
[2020-03-15 10:33] VITALS: BMI 48.9
[2020-03-22 08:58] VITALS: BP 137/81; PULSE 94; TEMP 36.3; O2SAT 98
--- NOTE | 2020-04-08 20:44 | OB.TRI.NOTE ---
History of Present Illness Date of Service: 03/22/20 Was patient seen by the physician?: No Reason For Visit: NST Date of Service: 03/22/20 Final SUNITHA: 05/01/20 Final SUNITHA Source: US <20 weeks Gestational age: 33 Weeks and 2 Days History of Present Illness: 33+ week intrauterine presents for routine nonstress test for chronic hypertension on labetalol. Allergies metronidazole [From Flagyl] Allergy (Verified 04/07/20 21:33) Rash - Pertinent Past Medical History Medical History: Past Medical History (Last Updated 02/02/19 @ 16:[address] Ana Lilia Pringle MD) Asthma Nephrolithiasis Oppositional defiant disorder Surgical History: Past Surgical History (Last Updated 02/02/19 @ 16:[address] Ana Lilia Pringle MD) H/O lithotripsy Physical Exam Vitals: Vital Signs Temp Pulse BP Pulse Ox 97.3 F L 94 137/81 H 98 03/22/20 08:58 03/22/20 08:58 03/22/20 08:58 03/22/20 08:58 NST - FHR Rate Baby A NST Reactive:: Yes FHR Category:: Category I Impression/Plan Mandeep right history 33+ week intrauterine for routine nonstress test. Reactive. Continue twice weekly nonstress testing.
== END 2020-03-15 11:03 | disposition home or self-care (01) ==
LOC: WPOUT 10:28 → OBT 10:29
PROVIDERS: PCP Internal Medicine; Referring Provider Obstetrics & Gynecology; Visit Provider Obstetrics & Gynecology
DX: O16.3 Unspecified maternal hypertension, third trimester (principal); Z3A.33 33 weeks gestation of pregnancy
CPT/HCPCS: 59025; 99218; G0378

== ENCOUNTER 2020-03-22 08:50 | Outpatient (CLI) | payer BC, SELFPAY ==
[2020-03-22 09:06] VITALS: BMI 48.9
--- NOTE | 2020-03-26 21:32 | PCM.PN.BLA ---
Progress Note Scheduled NST today. FHR baseline 130, +accels, -decels, moderate variability. No uterine contractions noted. NST reactive, Category I. To discharge and follow up in office as planned.
== END 2020-03-22 09:25 | disposition home or self-care (01) ==
LOC: WPOUT 08:59 → OBT 09:01
PROVIDERS: PCP Internal Medicine; Referring Provider Obstetrics & Gynecology; Visit Provider Obstetrics & Gynecology
DX: O26.90 Pregnancy related conditions, unspecified, unspecified trimester (principal); Z3A.00 Weeks of gestation of pregnancy not specified
CPT/HCPCS: 59050; 99218; G0378

== ENCOUNTER → 2020-03-22 10:54 | Outpatient (CLI) | payer BC, SELFPAY ==
[2020-03-22 09:06] VITALS: BMI 48.9
== END ==
PROVIDERS: PCP Internal Medicine; Visit Provider Obstetrics & Gynecology
DX: O26.833 Pregnancy related renal disease, third trimester (principal)
CPT/HCPCS: 87086; 87088

== ENCOUNTER 2020-03-29 10:00 | Outpatient (CLI) | payer BC, SELFPAY ==
[2020-03-29 10:10] VITALS: BP 127/71; PULSE 104
[2020-03-29 10:13] VITALS: TEMP 36.6
[2020-03-29 10:28] VITALS: BMI 48.4
--- NOTE | 2020-04-08 20:58 | OB.TRI.NOTE ---
History of Present Illness Date of Service: 03/29/20 Was patient seen by the physician?: No Reason For Visit: NON STRESS TEST Date of Service: 03/29/20 Final SUNITHA: 05/01/20 Final SUNITHA Source: US <20 weeks Gestational age: 35 Weeks and 2 Days History of Present Illness: 35+ week intrauterine presents for routine nonstress test for chronic hypertension on labetalol. Allergies metronidazole [From Flagyl] Allergy (Verified 04/07/20 21:33) Rash - Pertinent Past Medical History Medical History: Past Medical History (Last Updated 02/02/19 @ 16:[address] Ana Lilia Pringle MD) Asthma Nephrolithiasis Oppositional defiant disorder Surgical History: Past Surgical History (Last Updated 02/02/19 @ 16:[address] Ana Lilia Pringle MD) H/O lithotripsy Physical Exam Vitals: Vital Signs Temp Pulse BP 97.8 F 104 H 127/71 H 03/29/20 10:13 03/29/20 10:10 03/29/20 10:10 NST - FHR Rate Baby A NST Reactive:: Yes FHR Category:: Category I Impression/Plan 35+ week intrauterine with chronic hypertension on labetalol for routine nonstress test. Reactive nonstress test. Continuing routine nonstress test.
== END 2020-03-29 10:50 | disposition home or self-care (01) ==
PROVIDERS: PCP Internal Medicine; Referring Provider Obstetrics & Gynecology; Visit Provider Obstetrics & Gynecology
DX: O10.913 Unspecified pre-existing hypertension complicating pregnancy, third trimester (principal); O99.513 Diseases of the respiratory system complicating pregnancy, third trimester; J45.909 Unspecified asthma, uncomplicated; Z3A.35 35 weeks gestation of pregnancy; Z79.899 Other long term (current) drug therapy
CPT/HCPCS: 59025

== ENCOUNTER → 2020-04-02 10:47 | Outpatient (CLI) | payer BC, SELFPAY ==
[2020-03-29 10:28] VITALS: BMI 48.4
== END ==
PROVIDERS: PCP Internal Medicine; Visit Provider Obstetrics & Gynecology
DX: R31.9 Hematuria, unspecified (principal)
CPT/HCPCS: 87086; 87088

== ENCOUNTER 2020-04-05 09:00 | Outpatient (CLI) | payer BC, SELFPAY ==
[2020-04-05 09:25] VITALS: BMI 48.6
[2020-04-05 09:30] VITALS: BP 131/77; PULSE 90; PULSE 94; TEMP 36.7; O2SAT 98
--- NOTE | 2020-04-05 19:40 | OB.TRI.PN ---
Progress Notes Date of Service: 04/05/20 Progress Note: Scheduled routine NST. FHR baseline 135, +accels, -decels, moderate variability. Category I Reports good FM Has appt in the OB office immediately following
== END 2020-04-05 09:55 | disposition home or self-care (01) ==
LOC: WPOUT 09:04 → OBT 09:04
PROVIDERS: PCP Internal Medicine; Referring Provider Obstetrics & Gynecology; Visit Provider Obstetrics & Gynecology
DX: Z34.90 Encounter for supervision of normal pregnancy, unspecified, unspecified trimester (principal)
CPT/HCPCS: 59025; 59050; 87081; 99218; G0378

== ENCOUNTER 2020-04-07 21:17 | Outpatient (CLI) | payer BC, SELFPAY ==
[2020-04-07 21:33] VITALS: BMI 48.9
[2020-04-07 21:40] VITALS: TEMP 36.7; O2SAT 98
[2020-04-07 21:41] VITALS: BP 117/68; PULSE 104
[2020-04-07] MEDS: 0.9% Saline Lock 10 ML Syringe IV (22:15)
[2020-04-07 22:31] LABS: Bacteria 0 SEEN /hpf (None Seen); Mucous, Urine 0 SEEN /hpf (<or=2+)
[2020-04-07 22:32] LABS: Color, Urine Red (Yellow); Glucose, Dipstick Normal (Normal); Ketone-Dipstick 5 mg/dl (Negative); Leukocyte Esterase-Dipstick 100 /ul (Negative); Nitrite-Dipstick Negative (Negative); Occult Blood-Urine 250 /ul (Negative); Protein-Dipstick 100 mg/dl (Negative); Urine Bilirubin Dipstick Negative (Negative); Urine Clarity Cloudy (Clear); Urine Urobilinogen Normal (Normal); Urine pH 6.5 (5.0 - 8.0)
[2020-04-07 22:41] LABS: Hyaline Cast 0-5 SEEN /lpf (0-5); Squamous Epithelial Cells - UA 0-5 SEEN /hpf (5-10); White Blood Cells 0-5 SEEN /hpf (0-5)
[2020-04-07 22:43] LABS: Red Blood Cells-Urine > 100 SEEN /hpf (0-5)
[2020-04-07 22:48] LABS: Anion Gap 9 (5-15); BUN 8 mg/dL (7-18); BUN/Creat Ratio 14.7 RATIO (10-20); Calcium,Total 10.1 mg/dL (8.5-10.1); Chloride 105 mmol/L (98-107); Creatinine, Serum 0.54 mg/dL (0.55-1.02); EST Glomerular Filtration Rate 144 mL/min (>60); Est Glom Filt Rate - Afr Amer 175 mL/min (>60); Estimated Creatinine Clearance 149.09 ml/min; Glucose 98 mg/dL (74-106); Potassium 3.7 mmol/L (3.5-5.1); Sodium Level 138 mmol/L (136-145)
--- NOTE | 2020-04-10 08:17 | OB.TRI.NOTE ---
- Problem List (1) 36 weeks gestation of Status: Acute (2) False labor Status: Acute History of Present Illness Date of Service: 04/07/20 Was patient seen by the physician?: No Reason For Visit: CRAMPING Final SUNITHA: 05/01/20 Final SUNITHA Source: US <20 weeks Gestational age: 36 Weeks and 4 Days History of Present Illness: 24yo @ 36 4/7wga with c/o cramping. Recent dx of UTI and on Macrobid with c/o persistent hematuria. Allergies metronidazole [From Flagyl] Allergy (Verified 04/07/20 21:33) Rash - Pertinent Past Medical History Medical History: Past Medical History (Last Updated 02/02/19 @ 16:[address] Ana Lilia Pringle MD) Asthma Nephrolithiasis Oppositional defiant disorder Surgical History: Past Surgical History (Last Updated 04/09/20 @ 00:[address] Ana Lilia Pringle MD) Previous section H/O lithotripsy Laboratory Studies: Laboratory Tests 04/07/20 04/07/20 Range/Units 22:10 22:10 Sodium 138 (136-145) mmol/L Potassium 3.7 (3.5-5.1) mmol/L Chloride 105 (98-107) mmol/L Carbon Dioxide 24.0 (21.0-32.0) mmol/L Anion Gap 9 (5-15) BUN 8 (7-18) mg/dL Creatinine 0.54 L (0.55-1.02) mg/dL Estim Creat Clear Calc 149.09 ml/min Est GFR (MDRD) Af Amer 175 (>60) mL/min Est GFR (MDRD) Non-Af 144 (>60) mL/min BUN/Creatinine Ratio 14.7 (10-20) RATIO Glucose 98 (74-106) mg/dL Calcium 10.1 (8.5-10.1) mg/dL Urine Color Red (Yellow) Urine Clarity Cloudy (Clear) Urine pH 6.5 (5.0 - 8.0) Ur Specific [place] 1.020 (1.002-1.030) Urine Protein 100 H (Negative) mg/dl Urine Glucose (UA) Normal (Normal) mg/dl Urine Ketones 5 H (Negative) mg/dl Urine Occult Blood 250 H (Negative) /ul Urine Nitrite Negative (Negative) Urine Bilirubin Negative (Negative) mg/dL Urine Urobilinogen Normal (Normal) mg/dl Ur Leukocyte Esterase 100 H (Negative) /ul Urine RBC > 100 SEEN (0-5) /hpf Urine WBC 0-5 SEEN (0-5) /hpf Ur Squamous Epith Cells 0-5 SEEN (5-10) /hpf Urine Bacteria 0 SEEN (None Seen) /hpf Hyaline Casts 0-5 SEEN (0-5) /lpf Urine Mucus 0 SEEN (<or=2+) /hpf Physical Exam Vitals: Vital Signs Temp Pulse BP Pulse Ox 98.0 F 104 H 117/68 98 04/07/20 21:40 04/07/20 21:41 04/07/20 21:41 04/07/20 21:40 NST - FHR Rate Baby A Baseline: 145 Variability:: Moderate Accelerations:: 15 x 15 Decelerations:: None NST Reactive:: Yes FHR Category:: Category I Uterine Activity:: 0/10 Impression/Plan 36 4/7wga with false labor, UTI Urine culture sent No labor Will switch from Macrobid to Keflex given persistent symptoms status reassuring d/c home
== END 2020-04-07 23:18 | disposition home or self-care (01) ==
PROVIDERS: PCP Internal Medicine; Referring Provider Obstetrics & Gynecology; Visit Provider Obstetrics & Gynecology
DX: O47.03 False labor before 37 completed weeks of gestation, third trimester (principal); Z3A.36 36 weeks gestation of pregnancy
CPT/HCPCS: 36415; 59050; 80048; 81001; 87077; 87086; 87088; 99218; A4216; G0378

== ENCOUNTER 2020-04-09 16:15 | Inpatient (IN) | payer BC, SELFPAY ==
[2020-04-09] VITALS (31 sets, daily range): BP systolic 124–178; BP diastolic 77–114; PULSE 70–102; RESP 16–18; TEMP 35.9–36.7; O2SAT 96–99; BMI 48.6
--- NOTE | 2020-04-09 00:21 | US_ITS ---
STUDY: RENAL ULTRASOUND - COMPLETE REASON FOR EXAM: Female, 24 years old. GROSS HEMATURIA 36 WEEK 6 DAYS FLANK PAIN TECHNIQUE: Ultrasound evaluation of the kidneys was performed with real-time and static cordoba-scale imaging. COMPARISON: None. FINDINGS: RIGHT KIDNEY: Normal location of the right kidney, which is normal in size. The right kidney measures 14.7 cm x 6.7 cm x 7.1 cm. There is a normal cortex of the right kidney. The renal cortex measures 1.4 cm. There is no right renal mass or cyst. There are no right renal calculi. There is mild hydronephrosis of the right kidney. DISTAL RIGHT URETER: There is non-visualization of the distal right ureter. There is no demonstrated right ureterovesical junction calculus. There is a visualized right ureteral jet. LEFT KIDNEY: Normal location of the left kidney, which is normal in size. The left kidney measures 14.4 cm x 6 cm x 5.7 cm. There is a normal cortex of the left kidney. The renal cortex measures 1.5 cm. There is no left renal mass or cyst. There are no left renal calculi. There is no left hydronephrosis. DISTAL LEFT URETER: There is non-visualization of the distal left ureter. There is no demonstrated left ureterovesical junction calculus. There is a visualized left ureteral jet. BLADDER: The bladder is not adequately distended for sufficient evaluation. US/Kidney and Bladder IMPRESSION: Mild degree of right hydronephrosis. Electronically Signed: Fritz Garnica, at 9:45 EDT , Service support ,
--- NOTE | 2020-04-09 00:29 | OB.TRI.NOTE ---
- Problem List (1) 36 weeks gestation of Status: Acute (2) Flank pain Status: Acute (3) Hematuria Status: Acute Qualifiers: Hematuria type: gross Qualified Code(s): R31.0 - Gross hematuria History of Present Illness Date of Service: 04/09/20 Was patient seen by the physician?: Yes Reason For Visit: SPOTTING Date of Service: 04/09/20 Final SUNITHA: 05/01/20 Final SUNITHA Source: US <20 weeks Gestational age: 36 Weeks and 6 Days History of Present Illness: 24yo @ 36 6/7wga with c/o left back and side pain. hx hypertension on Labetalol and gross hematuria - switched from Macrobid to Keflex for persistent hematuria and lower abdominal cramping. She reports pain started earlier today and is severe in left side and radiating to lower mid abdomen around. +hematuria persists. Hx kidney stones, but cannot recall the last time she had one. She is followed by a Urologist in [place]. Allergies metronidazole [From Flagyl] Allergy (Verified 04/07/20 21:33) Rash - Pertinent Past Medical History Medical History: Past Medical History (Last Updated 02/02/19 @ 16:[address] Ana Lilia Pringle MD) Asthma Nephrolithiasis Oppositional defiant disorder Surgical History: Past Surgical History (Last Updated 04/09/20 @ 00:[address] Ana Lilia Pringle MD) Previous section H/O lithotripsy Review of Systems Constitutional: Denies: Chills, Fever Eyes: Denies: Vision Change HEENT: Denies: Head Aches, Visual Changes Cardiovascular: Denies: Chest Pain Respiratory: Denies: Shortness of Breath Gastrointestinal: Reports: Abdominal Pain. Denies: Constipation, Diarrhea, Nausea, Vomiting Genitourinary: Reports: Hematuria. Denies: Dysuria, Frequency Physical Exam Vitals: Vital Signs Temp Pulse BP Pulse Ox 98.0 F 91 154/105 H 96 04/09/20 00:03 04/09/20 00:21 04/09/20 00:21 04/09/20 00:03 General: Alert, Oriented x3, Cooperative, - - appears uncomfortable HEENT: Atraumatic, Normocephalic Cardiovascular: Regular rate, Regular Rhythm, Normal S1, Normal S2 Lungs: Clear to auscultation, Normal air movement Abdomen: Soft, Non-Distended, Gravid, - - +suprapubic tenderness, no CVA tenderness Neurological: Neuro grossly intact [employer]: Normal external genitalia Cervix Dilation (cm): 1 Station: -3 Effacement (%): 50 - per RN Heather Romeo NST - FHR Rate Baby A Baseline: 130 Variability:: Moderate Accelerations:: 15 x 15 Decelerations:: None NST Reactive:: Yes FHR Category:: Category I Uterine Activity:: 0 Impression/Plan 24yo @ 36 6/7wga with abdominal-flank pain and hematuria, elevated BP, hx cHTN -Dfdx UTI, nephrolithiasis -Admit for observation -Will continue antibiotics -Renal US ordered -Pain management prn -BP may be elevated due to pain - however cannot r/o preeclampsia. Send preeeclamptic labs also
[2020-04-09] MEDS: 0.9% Normal Saline 1,000 ML 500 ML IV (00:50)
[2020-04-09] MEDS: Morphine 4 MG/ML Syringe IV (01:00)
[2020-04-09 01:01] LABS: Absolute Lymphocyte Count 2.54 X10^3/uL (0.83-4.51); Absolute Neutrophil Count 8.1 X10^3/uL (2.0-7.7); Basophil# 0.03 X10^3/uL; Basophil% 0.3 % (0-1); Eosinophil# 0.26 X10^3/uL; Eosinophils% 2.2 % (0-5); Hematocrit 35.7 % (37-47); Hemoglobin 11.6 g/dL (12.0-15.0); Lymphocyte # 2.54 X10^3/ul (4.0); Lymphocyte % 21.3 % (19-41); Mean Corp Hgb Conc 32.5 g/dL (32-36); Mean Corpuscular Hgb 28.6 pg (27.0-32.0); Mean Corpuscular Volume 87.9 fL (81-99); Mean Platelet Vol. 10.2 fl (6.2-12.0); Monocyte# 0.96 X10^3/uL; NRBC Flagged by Analyzer 0 % (0-5); Neutrophil # 8.05 X10^3/uL (2.7-7.7); Neutrophil % 67.4 % (47-70); Platelet Count 359 K/mm3 (150-450); RBC Distribution Width CV 13.5 % (11.6-14.6); RBC Distribution Width SD 43.2 fl (35.1-43.9); Red Blood Count 4.06 M/mm3 (4.2-5.4); White Blood Count 11.9 K/mm3 (4.4-11.0)
[2020-04-09 01:18] LABS: ALB/GLOB Ratio 0.6 RATIO (0.9-2.4); AST(SGOT) 14 U/L (15-37); Alanine Aminotransfer ALT/SGPT 9 U/L (13-56); Albumin, Serum 2.5 g/dL (3.2-5.0); Alkaline Phosphatase 124 U/L (45-117); Anion Gap 9 (5-15); BUN 8 mg/dL (7-18); BUN/Creat Ratio 15.6 RATIO (10-20); Chloride 108 mmol/L (98-107); Creatinine, Serum 0.51 mg/dL (0.55-1.02); EST Glomerular Filtration Rate 154 mL/min (>60); Est Glom Filt Rate - Afr Amer 187 mL/min (>60); Estimated Creatinine Clearance 157.86 ml/min; Globulin 4.2 g/dL (2.2-4.2); Glucose 82 mg/dL (74-106); Potassium 3.8 mmol/L (3.5-5.1); Protein, Total 6.7 g/dL (6.4-8.2); Sodium Level 139 mmol/L (136-145); Uric Acid 3.3 mg/dL (2.6-6.0)
[2020-04-09] MEDS: Labetalol 100 MG Tablet PO ×3 (02:04→22:02)
[2020-04-09] MEDS: HYDROmorphone 1 MG/ML Syringe IV ×6 (02:47→22:03)
[2020-04-09] MEDS: Ondansetron 4 MG/2 ML Vial IV ×2 (04:36→13:41)
[2020-04-09] MEDS: 0.9% Saline Lock 10 ML Syringe IV ×4 (06:59→16:54)
[2020-04-09] MEDS: Cephalexin 500 MG Capsule PO ×2 (07:05→12:13)
[2020-04-09] MEDS: oxyCODONE 5 MG Tablet PO (10:01)
[2020-04-09] MEDS: Lactated Ringers 1,000 ML 100 ML IV (16:54)
[2020-04-09] MEDS: Betamethasone/Betamethasone 30 MG/5 ML Vial 12 MG IM (17:16)
[2020-04-09] MEDS: Cefazolin 1 GM/50 ML BAG IV (17:20)
[2020-04-09 17:45] LABS: Absolute Lymphocyte Count 1.31 X10^3/uL (0.83-4.51); Absolute Neutrophil Count 12.4 X10^3/uL (2.0-7.7); Basophil# 0.02 X10^3/uL; Basophil% 0.1 % (0-1); Eosinophil# 0.11 X10^3/uL; Eosinophils% 0.7 % (0-5); Hematocrit 34.3 % (37-47); Lymphocyte # 1.31 X10^3/ul (4.0); Lymphocyte % 8.6 % (19-41); Mean Corp Hgb Conc 32.1 g/dL (32-36); Mean Corpuscular Hgb 28.7 pg (27.0-32.0); Mean Corpuscular Volume 89.6 fL (81-99); Mean Platelet Vol. 10.2 fl (6.2-12.0); Monocyte# 1.21 X10^3/uL; NRBC Flagged by Analyzer 0 % (0-5); Neutrophil # 12.44 X10^3/uL (2.7-7.7); Neutrophil % 81.9 % (47-70); Platelet Count 307 K/mm3 (150-450); RBC Distribution Width CV 13.9 % (11.6-14.6); RBC Distribution Width SD 44.8 fl (35.1-43.9); Red Blood Count 3.83 M/mm3 (4.2-5.4); White Blood Count 15.2 K/mm3 (4.4-11.0)
[2020-04-09] MEDS: Lactated Ringers 1,000 ML 999 ML IV (18:00)
[2020-04-09] MEDS: Lactated Ringers 1,000 ML 150 ML IV (18:50)
[2020-04-09] MEDS: Sodium Citrate/Citric Acid 30 ML UDC PO (19:18)
[2020-04-09] MEDS: Cefazolin 2 GM in 0.9% Normal Saline 100 ML IV (19:25)
--- NOTE | 2020-04-09 19:35 | HP.PCM_ITS ---
History and Physical Date of Admission: 04/09/20 ACOG ANTEPARTUM RECORD - HISTORY AND PHYSICAL (04/09/2020) Name: LUIS LEONE History of This : This is a 24-year-old G2, P1 who presents to labor and delivery with severe right lower abdominal pain radiating into her back. She was noted to have gross hematuria but subsequent ultrasound showed mild dilation of the collecting system on the right and no evidence of kidney stone present. White count essentially normal. Patient continues to have pain 9 out of 10 writhing constantly and this only subsides with IV Dilaudid for about an hour. Patient is 36 weeks 6 days gestation scheduled for repeat in 2 weeks. She is morbidly obese so it is difficult to continuously monitor the patient. OB Physician: MURIEL 's Physician: Moustapha Sunshine ...................................................................... : 1995 Age: 24 [address]: [address] [place] [address] Phone: ([phone] Insurance Carrier: [facility] [id number] Emergency Contact: EDER LEONE [phone] ...................................................................... Final SUNITHA: 05/01/20 By Ultrasound: 8 weeks PARITY: (G-Total Pregnancies P-Fullterm,Premature,Induced AB,Spont AB, Ectopics, Multiple,Living) SUNITHA CONFIRMATION: By LMP: 07/24/19 Final SUNITHA: 05/01/20 OB PROBLEM LIST: Declines AFP and CF tests. ALLERGIC TO FLAGYL. ASTHMA on inhalers and aerosol meds daily. Hx ODD (has a temper), UTIs, kidney stones, At NOB says no environmental allergies. Multiple year round environmental allergies indoor and out. cHTN on Labetalol - Monitoring weekly, growth q4week Morbid obesity--start baby ASA Prior --plan repeat ALLERGIES: Flagyl Generalized rash MEDICATIONS: fluoxetine 10 mg tablet 1 tab po daily x 1 week, then 2 tabs po daily hydrocodone 5 mg-acetaminophen 325 mg tablet 1 tablet as needed every 6 hours Keflex 500 mg capsule One capsule by mouth 2 x daily labetalol 100 mg tablet One tablet by mouth 2 x daily Macrobid 100 mg capsule One pill by mouth twice a day nebulizer and compressor As Directed 28 mg iron-800 mcg tablet One pill by mouth once a day ProAir HFA 90 mcg/actuation aerosol inhaler As Directed promethazine 12.5 mg tablet 1 pill by mouth every 3 hours as needed for nausea Pulmicort Flexhaler 180 mcg/actuation breath activated Two puffs twice a day Pyridium 200 mg tablet One pill by mouth three times a day for 3 days ranitidine 150 mg tablet As Directed SOCIAL HISTORY: Smoking - Smoker x 6 years. 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 Enc to walk 20 min daily. 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 RoomateDana her baby and [address] of - [place] Hours Worked - 40 hours per week Spouse-Sig Other Name - Eder Leone Spouse-Sig Other Occupation - [employer]. Spouse-Sig Other Phone No - [phone] Children Name(s) - Mario(19) PRIOR DELIVERY HISTORY DEL DATE GEST LAB WT LB WT OZ TYPE ANES LABOR TX 03 Apr 19 40 16 6 2 C-Sec Epidural No ANTEPARTUM FLOW CHART VISIT GE RTC FU F F SC U U DATE WK MD WKS HT PN HR M SS BP ED WT SC GL D EF ST __ ____ ___ __ __ ___ __ __ __ ___ __ __ __ ___ __ 04 Nabor 36 CH 1 36 V on + 140/100 sl 301 tr - March JMW 1 35 + + 142/92 sl 301 tr - March JMW 1 35 V + + 136/84 sl 302 tr - ft 50 hi March JMW 1 33 + + 132/70 sl 301 1+ - 08 March CH 1 34 on + 132/80 sl 304 tr 3+ 30 Apr 31 JMW 1 33 + + 134/88 sl 298 tr - 24 Jan 30 JMW 1 31 + + 124/82 sl 300 tr - 15 Jan 29 SHM + 130/86 297 tr - 08 Jan 28 SHM 2 28 B + de 138/96 0 298 tr - 11 Dec 24 JMW 4 24 + + 132/80 tr 299 tr - 10 Feb 19 JMW 4 20 + + 122/84 0 298 tr - 14 Nov 17 JMW 4 16 + O 100/60 sl 297 tr - 30 Oct 13 KW + 120/90 sl 294 - 1+ 17 Oct 13 JMW 4 + O 136/80 0 296 - - 18 Sep 08 JMW 4 U+ US 130/84 sl 297 - - ANTEPARTUM NOTE(S): Apr 05 2020: see note Mar 29 2020: NST at [facility],BPP Today,First BP 142/92 Mar 22 2020: Increased Vaginal Discharge,Urine Frequency, BPP 08/11March 15 2020: NST at [facility],Sono Today,Feeling Well March 09 2020: Mar 01 2020: feeling well. NST and BPP today. Feb 24 2020: Sono Today, Nausea Daily,Fatigue Feb 15 2020: spotting over weekend Feb 08 2020: BP R side 130/72 large cuff (blood draw R hand today) Jan 11 2020: Glucola/Instructions Given,Good FM Dec 12 2019: Sono Today,Good FM,Feeling Well Nov 15 2019: Doing Well, Declines AFP Oct 31 2019: see note Oct 18 2019: Periodic nausea,fatigue daily Sep 19 2019: Nausea Continues,Sono,PNV and NOB Today COMPREHENSIVE ANTEPARTUM NOTE(S): Apr 07 2020: Call Msg from 7:10 PM. Kellee calling @ 36 wks 4 day stating she took 1000 mg Tylenol 2 hrs ago for cramping worse than her usual...did not help. Having lots of red bloody mucous and decreased FM today. Oligo. Sent in to OB for evaluation. Msg to Dr. Debra Pringle. Apr 05 2020: Luis is being seen for PNV. Pt had NST over at [facility] L and D prior to visit in office. BPP done today as well. Pt complains of cramping, lower back pain and pelvic pain. Repeat BP left side lying 118/80. Long dip trs leuks, trs protein, pH 6.5, +++ blood, specific gravity 1015 and others are negative. GBS and LARC done today. AM Apr 05 2020: NST today reactive with FHR baseline of 130. BPP 06/09. GBS collection today and SVE external os 3 with internal os /-3. . Reports +FM. Already has next weeks appt scheduled with ADAM. Richard aving urinary symptoms, but on Macrobid currently. Following up with nephrology . Understands signs of labor and when to call. - Apr 02 2020: Luis presents here today for UTI check with the Nurse for hematuria noted this am upon rising. T- 98.1 oral with BP 134/84 large cuff sitting. Denies pain or burning at this time. Urine Dip: Leuk - Mod ++, Protein - Lg +++, pH - 6.0, Blood Lg +++, Sp Gr - 1.010, Ketones - sm+, Bili - Lg +++ and all others Negative. Reviewed same with SHM and Macrobid 100 mg bid x 7 days NR sent to [facility]) as ordered and Urine sent for C & S. Advised to call her Urologist from [place], just to let him know of todays urine results. VERA RN Mar 29 2020: Luis presents here today for PNV with NST at [facility] and BPP Today in our Office. First BP 142/92 with large cuff sitting and after laying on (L) side repeat BP was 122/74. Denies headache or blurry vision. Admits to having momentary foggy brain moments sometimes. Encouraged to increase water intake. VERA Mar 22 2020: Luis presents here today for PNV and Sono. 24 y.o. reports that she started over the weekend with urine frequency and often releasing small amounts of urine. Urine Dip : Leuk - trace, Protein- trace, Blood - Lg +++, pH - 6.5, Sp Gr - 1.010, and all others negative. Admits to history of kidney stones. Urine C and S will be sent to [facility] Lab. Adds that she has also noticed an increase in vaginal discharge and would like to have same checked today. Good FM and denies other concerns at this time. VERA Mar 15 2020: NST done in OB prior to this visit. Mar 09 2020: Lius is here for NST. She states she has not felt FM today and some days she has not felt FM. Checks FH @ home w/a doppler, last checked yesterday. Attempted NST, but unable to locate FH. Scheduled for US BPP next; when I was leaving the room, she states she just felt the baby move. Pt aware anterior placenta. Reports taking Labetalol 100mg in the evenings. Can not remember systolic readings at home, reports diastolic in the 80's. 3+ glucose in urine this visit. Mar 09 2020: See above. BPP 06/09 with FHR 135 and EFW 53%. ADAM is 12.61. Feeling +FM. Understands needs to go to for NST. Will start twice weekly NSTs and once weekly BPPs with office visit. Understands when to call. - Feb 15 2020: Luis reports no more bleeding and doing ok otherwise. Taking medication as directed. Will see Dr Cooley next week with BPP. LMT Feb 12 2020: Call Msg from 10 PM Thursday night 02/10/20. Luis calliing @ 28 wks 3 days reporting red blood noted on toilet paper when using the bathroom, but went back in right after and nothing further noted. Having slight cramping. Is not able to feel much FM, d/t anterior placenta. Biophysical in the office 2 days ago 06/09. She has a doppler at home and reports FHT's 135-150 prior to this call. Denies IC in the past week. Advised if further bleeding occurs and / or if severe cramping or abdominal pain, to go to L+D same night for evaluation. Otherwise, can take Tylenol, rest and NO IC. Will check on her in the morning. Call back to Luis 10:15 AM Sat morning. Luis states she has had NO further cramping and NO further spotting. She checks FHT's several x per day and running same as last night. Advised to call if any further cramping or spotting noted. [facility] Feb 10 2020: Entry for 02/08/20: Start Fluoxetine for worsening ODD sx. Previously tolerated well. Discussed risk for THANH low overall. PTL, ROM, FM precautions. NST difficulty due to habitus, BPP 06/09. Continues Labetalol for hx HTN. Plan for weekly monitoring. Growth at 32wga Feb 08 2020: 1 HR Glucose, CBC drawn today. Reports feeling FM apprx 3 x per week; she is aware she has an anterior placenta ---- will address further w/Dr. Debra Pringle. Taking Labetalol 100mg BID. Reports concern with feeling an increase in moodiness, tearful. Denies thoughts of self harm or hurting anyone else. Other people she is living with are getting on her nerves. To discuss further w/Dr. Debra Pringle. Takes medication when she is not to help w/ODD, but not able to take during . [facility] Jan 05 2020: Luis is here for a FHT check at 23 w 2 d. She states that she tripped over a toy last night, and fell against her son's crib striking her ri ght hip, and then she fell back onto her bottom. She went to [facility] for a FHT check last night, and they sent her home after hearing FHT's. She called today with concerns that she has only felt 3 FM's today. She denies cramping/spotting. Luis has an anterior placenta, discussed this can muffle sensations of FM for some people, and that she may note more FM on the sides of her abdomen. [place] reviewed regular everyday FM is not expected until 26 weeks GA. FHT's present in 150's with Doppler. Luis states that she feels reassure. Report to Dr. Chapman. AW Oct 31 2019: Luis is being seen for emergency schedule. Pt was seen in [facility] ER Thursday night due to severe headache. Pt was put on Amoxicillin, Labetalol, Ondasetron, and Percocet. Pt is also on gas relief and promethazine. She has a headache that is constant right behind left eye that is sharp pain at times. She states over the weekend she just wanted to sleep. She has some lightheadedness since. AM Oct 31 2019: Reviewed CAT scan and labs from [facility] ER w/patient, reveiwed effectiveness of medication proivded; she is getting relief with Percocet, and Cat scan and labs indicate potential mild infection of maxillary and ethmoid sinuses; d/w Dr. Paulson, reinforced comfort measures, will arrange ENT visit for patient via [facility]G/Publishing Director Triage RNs Sep 22 2019: O positive RI. Hgb 12 g/dl. EB Sep 19 2019: Luis is here with , Eder, her mother and their 7 month old son for NOB appt with SUNITHA May 01, 2020 planning a RCS at [facility] w spinal, using Dr Huizar for post disch ped care and to breastfeed. 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 They state the pg was planned and they are happy. They have a roommate who lives with them with a 7 mo old baby and a 5 yo. Luis is allergic to Flagyl. She has no other med allergies and none to food, latex or the environment. She has hypertension and takes Labetalol. She has asthma and is currently switching to Pulmicort from QVAR inhaler. ProAir is her rescue inhaler. She also uses a nebulizer but is unsure of what med she uses in that...maybe albuterol. She takes ranitidine for reflux. She takes a vitamin and promethazine. Her diet sounds balanced w minimal caffeine and 5-6 bottles of water daily. Enc to walk 20 min daily. They do have a treadmill. She stopped smoking upon realizing her first pg and has not resumed. She denies street drug use and rarely drinks alcohol and not in pg. Genetics Screening form completed noted Eder has a half brother who as an infant from a heart issue and Eder's sister has muscular dystrophy. They decline AFP and CF tests. Warning signs in pg reviewed as well as wearing her seatbelt ALWAYS and low on her abdomen. States passenger seatbelt does not accommodate her body. Importance of protein in her diet stressed darius with closely spaced pg. Lifting restriction of 25# reviewed. They have a copy of What to Expect. US done today. Routine labs drawn. They have cats but Eder cares for the litter. Luis had a UTI post op requiring re hospitalization for iv antibiotics at [facility]. did not go well due to that and she quit within a month. Office Class suggested. Enc to call w any concerns. Visit took approx 45 min. Justin PARKER. NEW Sep 13 2019: ok Sep 13 2019: Luis presents here today with spouse(Eder) for Missed Menses appointment. 23 y.o. G 2 P 1 non-smoker with LMP of 07-24-19 lasting her average of 5 days. UPT is positive today in our Office. Presents at 7 weeks 2 days with an approximate SUNITHA of 0630-20. Denies spotting/bleeding thus far in . Reports having nausea and tender breasts and taking an OTC Vitamin daily. Educational Materials given. History of normal pap screening with last in 2018. Medication and Allergy lists up-dated. VERA REVIEW OF SYSTEMS: GENERAL - Denies fever, or chills SKIN - Denies rash, new skin lesions, or change in moles EYES - Denies blurred vision, or change in visual acuity EARS - Denies ear pain, or difficulty hearing NOSE - Denies nasal congestion, discharge, or bleeding MOUTH - Denies sore throat, or difficulty swallowing NECK - Denies pain or swelling RESPIRATORY - Denies shortness of breath, cough, wheezing CARDIOVASCULAR - Denies palpitations, chest pain, orthopnea, PND, peripheral edema, syncope or claudication GASTROINTESTINAL - Denies nausea, vomiting, diarrhea, constipation, Denies abdominal pain, melena and or bright red blood GENITOURINARY - Denies dysuria, frequency of urination, urgency, or hesitancy MUSCULOSKELETAL - Denies joint or muscle pain, or back pain NEUROLOGICAL - Denies localized numbness, weakness, or tingling PSYCHIATRIC - Denies depression, anxiety, substance abuse or suicide attempts ENDOCRINE - Denies heat or cold intolerance, weight loss or gain, increasing thirst HEMATO-IMMUNOLOGIC - Denies easy bruising, bleeding, oral ulcerations or recurrent infections GENETICS SCREENING: Age 35+ years: No Thalassemia: No Neural Tube Defect: No Down Syndrome: No LETICIA-SACHS: No Sickle Cell Disease: No Hemophilia: No Musc. Dystrophy: Yes, FOBs sister Cystic Fibrosis: No- declines screening [place] Chorea: No Mental Retardation: No Fragile X: No Other genetic: No Other defects: No SABs/still births: No Drugs since LMP: Yes Comments: 11/03 brother w heart issue, shortly after . INFECTION HISTORY: High risk AIDS: No High risk Hepatitis: No Exposed to TB: No Exposed to Herpes: No Rash/viral illness since LMP: No History of STD: No MENSTRUAL HISTORY: *Menses Amount/Duration: 5 daysMenses Regularity: RegularFrequency: 28, 28- 30d* PAST SUMMARY: PARITY: 1. Total Pregnancies............ 2 2. Full Term Pregnancies........ 1 3. Premature.................... 0 4. Abortions - Induced.......... 0 5. Abortions - Spontaneous...... 0 6. Ectopics..................... 0 7. Multiple Births.............. 0 8. Living Children.............. 1 PAST #1: Date of :.................. 02/02/19 Gestation Weeks:................ 40 Length of labor(hours):......... 16 Sex:............................ M Weight-lbs:............... 6 Weight-oz:................ 2 Type of Delivery:............... C-Sect Type of Anesthesia:............. Epidural Place of Delivery:.............. [facility] Treatment of Labor?:.... No Comment: PIH, UTI PO ADMIT PHYSICAL EXAMINATION General Appearence: 24 yo female in no acute distress Vital Signs: AF, VSS Heart: RRR without rubs or gallops Lungs: CTA x 2 Breasts: deferred Abdomen: gravid Pelvis: Cervix: Presentation: cephalic Station: Fetus: Size: AGA Movement: present Heart: present Labs for : LUIS LEONE since 08/05/2019 ORDER DATEIN DESCRIPTION VALUE UNITS RANGE A+ COMMENT TYPE AND SCREEN 04/09/20 Reason for Type AND Screen/Red Cells: Labor [facility]~[address] [place], [address]~ BLOOD TYPE GEL O POSITIVE N ANTIBODY SCREEN NEGATIVE N CBC W/DIFF, AUTOMATED 04/09/20 NOTE Original Ordering Provider: Sascha Chapman WBC 15.2 K/mm3 4.4-11.0 H RBC 3.83 M/mm3 4.2-5.4 L HGB 11.0 g/dL 12.0-15.0 L HCT 34.3 % 37-47 L MCV 89.6 fL 81-99 MCH 28.7 pg 27.0-32.0 MCHC 32.1 g/dL 32-36 RDW CV 13.9 % 11.6-14.6 RDW SD 44.8 fl 35.1-43.9 H PLT 307 K/mm3 150-450 MPV 10.2 fl 6.2-12.0 NEUT% 81.9 % 47-70 H LY% 8.6 % 19-41 L MONO% 8.0 % 0-10 EO% 0.7 % 0-5 BASO% 0.1 % 0-1 IM GRAN % 0.700 % 0.0-0.9 IG% - Immature Granulocytes (promyelocytes, myelocytes and metamyelocytes) > 1% indicates that a LEFT SHIFT is Present. ABSOLUTE NEUT 12.4 X10 3/uL 2.0-7.7 H ABSOLUTE LYMPH 1.31 X10 3/uL 0.83-4.51 NRBC, FLAGGED 0 % 0-5 URIC ACID 04/09/20 NOTE Original Ordering Provider: Narendra Pringle URIC 3.3 mg/dL 2.6-6.0 The drugs N-Acetylcysteine and Metamizole may falsely depress this assay. COMPREHENSIVE METABOLIC PROFIL 04/09/20 NOTE Original Ordering Provider: Narendra Pringle GLU 82 mg/dL 74-106 Please note revised GLUCOSE reference range effective 12/04/2017. BUN 8 mg/dL 7-18 CREAT,SERUM 0.51 mg/dL 0.55-1.02 L The validity of the calculated GFR AND GFRAA in patients over 70 years has not been determined. Clinical correlation is essential. EST GFR 154 mL/min >60 Non- GFR Calc EST GFR - AA 187 mL/min >60 GFR Calc ESTIMATED CRCL 157.86 ml/min BUN/CRE 15.6 RATIO 10-20 T PROT 6.7 g/dL 6.4-8.2 ALB 2.5 g/dL 3.2-5.0 L GLOB 4.2 g/dL 2.2-4.2 A/G 0.6 RATIO 0.9-2.4 L CA 9.0 mg/dL 8.5-10.1 AST 14 U/L 15-37 L ALK P 124 U/L 45-117 H ALT 9 U/L 13-56 L T BILI 0.10 mg/dL 0.20-1.00 L For patients on eltrombopag therapy, use of Dimension [place] TBIL is not recommended. NA 139 mmol/L 136-145 K 3.8 mmol/L 3.5-5.1 CL 108 mmol/L 98-107 H CO2 22.0 mmol/L 21.0-32.0 GAP 9 5-15 CBC W/DIFF, AUTOMATED 04/09/20 NOTE Original Ordering Provider: Narendra Pringle WBC 11.9 K/mm3 4.4-11.0 H RBC 4.06 M/mm3 4.2-5.4 L HGB 11.6 g/dL 12.0-15.0 L HCT 35.7 % 37-47 L MCV 87.9 fL 81-99 MCH 28.6 pg 27.0-32.0 MCHC 32.5 g/dL 32-36 RDW CV 13.5 % 11.6-14.6 RDW SD 43.2 fl 35.1-43.9 PLT 359 K/mm3 150-450 MPV 10.2 fl 6.2-12.0 NEUT% 67.4 % 47-70 LY% 21.3 % 19-41 MONO% 8.0 % 0-10 EO% 2.2 % 0-5 BASO% 0.3 % 0-1 IM GRAN % 0.800 % 0.0-0.9 IG% - Immature Granulocytes (promyelocytes, myelocytes and metamyelocytes) > 1% indicates that a LEFT SHIFT is Present. ABSOLUTE NEUT 8.1 X10 3/uL 2.0-7.7 H ABSOLUTE LYMPH 2.54 X10 3/uL 0.83-4.51 NRBC, FLAGGED 0 % 0-5 OB TRIAGE PHYSICIAN NOTE 04/09/[address] [facility] Medical Records Department [address] [place] [address] OB Triage Physician Note 04/09/20 0029 MR#: [id number] Acct: [id number] Name: LUIS LEONE Rep #: [id number] : 1995 24 From: Narendra Pringle MD PCP: Dr. Marya Day MD Status:REG CLI Y Location: [place] [address] - Problem List (1) 36 weeks gestation of Status: Acute (2) Flank pain Status: Acute (3) Hematuria Status: Acute Qualifiers: Hematuria type: gross Qualified Code(s): R31.0 - Gross hematuria History of Present Illness Date of Service: 04/09/20 Was patient seen by the physician?: Yes Reason For Visit: SPOTTING Date of Service: 04/09/20 Final SUNITHA: 05/01/20 Final SUNITHA Source: US <20 weeks Gestational age: 36 Weeks and 6 Days History of Present Illness: 24yo @ 36 6/7wga with c/o left back and side pain. hx hypertension on Labetalol and gross hematuria - switched from Macrobid to Keflex for persistent hematuria and lower abdominal cramping. She reports pain started earlier today and is severe in left side and radiating to lower mid abdomen around. +hematuria persists. Hx kidney stones, but cannot recall the last time she had one. She is followed by a Urologist in [place]. Allergies metronidazole [From Flagyl] Allergy (Verified 04/07/20 21:33) Rash - Pertinent Past Medical History Medical History: Past Medical History (Last Updated 02/02/19 @ 16:[address] Narendra Pringle MD) Asthma Nephrolithiasis Oppositional defiant disorder Surgical History: Past Surgical History (Last Updated 04/09/20 @ 00:[address] Narendra Pringle MD) Previous section H/O lithotripsy Review of Systems Constitutional: Denies: Chills, Fever Eyes: Denies: Vision Change HEENT: Denies: Head Aches, Visual Changes Cardiovascular: Denies: Chest Pain Respiratory: Denies: Shortness of Breath Gastrointestinal: Reports: Abdominal Pain. Denies: Constipation, Diarrhea, Nausea, Vomiting Genitourinary: Reports: Hematuria. Denies: Dysuria, Frequency Physical Exam Vitals: Vital Signs Temp Pulse BP Pulse Ox 98.0 F 91 154/105 H 96 04/09/20 00:03 04/09/20 00:21 04/09/20 00:21 04/09/20 00:03 General: Alert, Oriented x3, Cooperative, - - appears uncomfortable HEENT: Atraumatic, Normocephalic Cardiovascular: Regular rate, Regular Rhythm, Normal S1, Normal S2 Lungs: Clear to auscultation, Normal air movement Abdomen: Soft, Non-Distended, Gravid, - - +suprapubic tenderness, no CVA tenderness Neurological: Neuro grossly intact DRAWER IN: Normal external genitalia Cervix Dilation (cm): 1 Station: -3 Effacement (%): 50 - per RN Heather Romeo NST - FHR Rate Baby A Baseline: 130 Variability:: Moderate Accelerations:: 15 x 15 Decelerations:: None NST Reactive:: Yes FHR Category:: Category I Uterine Activity:: 0 Impression/Plan 24yo @ 36 6/7wga with abdominal-flank pain and hematuria, elevated BP, hx cHTN -Dfdx UTI, nephrolithiasis -Admit for observation -Will continue antibiotics -Renal US ordered -Pain management prn -BP may be elevated due to pain - however cannot r/o preeclampsia. Send preeeclamptic labs also 04/09/20 0042 Date Narendra Pringle MD Cosigner Signature (if applicable): Date CC: Dr. Marya Day MD; Dr. Narendra Pringle MD Signed KIDNEY AND BLADDER 04/09/[address] [facility] Imaging Services [address] [place] [address] Kidney and Bladder MR#: [id number] Acct: [id number] Name: LUIS LEONE Rep #: [id number] : 1995 F 24 From: Fritz herrera MD PCP: Dr. Marya Day MD Status: REG CLI Study: Kidney and Bladder Date of Exam: 04/09/20 Exam# [id number] Ordering Dr: Narendra Dyson MD STUDY: RENAL ULTRASOUND - COMPLETE REASON FOR EXAM: Female, 24 years old. GROSS HEMATURIA 36 WEEK 6 DAYS FLANK PAIN TECHNIQUE: Ultrasound evaluation of the kidneys was performed with real-time and static cordoba-scale imaging. COMPARISON: None. FINDINGS: RIGHT KIDNEY: Normal location of the right kidney, which is normal in size. The right kidney measures 14.7 cm x 6.7 cm x 7.1 cm. There is a normal cortex of the right kidney. The renal cortex measures 1.4 cm. There is no right renal mass or cyst. There are no right renal calculi. There is mild hydronephrosis of the right kidney. DISTAL RIGHT URETER: There is non-visualization of the distal right ureter. There is no demonstrated right ureterovesical junction calculus. There is a visualized right ureteral jet. LEFT KIDNEY: Normal location of the left kidney, which is normal in size. The left kidney measures 14.4 cm x 6 cm x 5.7 cm. There is a normal cortex of the left kidney. The renal cortex measures 1.5 cm. There is no left renal mass or cyst. There are no left renal calculi. There is no left hydronephrosis. DISTAL LEFT URETER: There is non-visualization of the distal left ureter. There is no demonstrated left ureterovesical junction calculus. There is a visualized left ureteral jet. BLADDER: The bladder is not adequately distended for sufficient evaluation. US/Kidney and Bladder IMPRESSION: Mild degree of right hydronephrosis. Electronically Signed: Fritz Garnica, at 9:45 EDT , Service support , CC: Dr. Marya Day MD; Dr. Narendra Pringle MD Pensionholder Information Clerk: Signed OB TRIAGE PHYSICIAN NOTE 04/08/[address] [facility] Medical Records Department [address] [address] OB Triage Physician Note 04/08/202057 MR#: [id number] Acct: [id number] Name: LUIS LEONE Rep #: [id number] : 1995 24 From: Sascha Chapman MD PCP: Dr. Marya Day MD Status:DEP [facility] Y Location: [facility] History of Present Illness Date of Service: 03/29/20 Was patient seen by the physician?: No Reason For Visit: NON STRESS TEST Date of Service: 03/29/20 Final SUNITHA: 05/01/20 Final SUNITHA Source: US <20 weeks Gestational age: 35 Weeks and 2 Days History of Present Illness: 35+ week intrauterine presents for routine nonstress test for orchard pruner martir hypertension on labetalol. Allergies metronidazole [From Flagyl] Allergy (Verified 04/07/20 21:33) Rash - Pertinent Past Medical History Medical History: Past Medical History (Last Updated 02/02/19 @ 16:[address] Narendra Pringle MD) Asthma Nephrolithiasis Oppositional defiant disorder Surgical History: Past Surgical History (Last Updated 02/02/19 @ 16:[address] Narendra Pringle MD) H/O lithotripsy Physical Exam Vitals: Vital Signs Temp Pulse BP 97.8 F 104 H 127/71 H 03/29/20 10:13 03/29/20 10:10 03/29/20 10:10 NST - FHR Rate Baby A NST Reactive:: Yes FHR Category:: Category I Impression/Plan 35+ week intrauterine with chronic hypertension on labetalol for routine nonstress test. Reactive nonstress test. Continuing routine nonstress test. 04/08/202100 Date Sascha Chapman MD Cosigner Signature (if applicable): Date CC: Dr. Sascha Chapman MD; Dr. Marya Day MD Signed Reviewed by SASCHA OB TRIAGE PHYSICIAN NOTE 04/08/[address] [facility] Medical Records Department [address] [place] [address] OB Triage Physician Note 04/08/204 MR#: [id number] Acct: [id number] Name: LUIS LEONE Rep #: [id number] : 1995 24 From: Sascha Chapman MD PCP: Dr. Marya Day MD Status:[facility] Y Location: [facility] History of Present Illness Date of Service: 03/22/20 Was patient seen by the physician?: No Reason For Visit: NST Date of Service: 03/22/20 Final SUNITHA: 05/01/20 Final SUNITHA Source: US <20 weeks Gestational age: 33 Weeks and 2 Days History of Present Illness: 33+ week intrauterine presents for routine nonstress test for chronic hypertension on labetalol. Allergies metronidazole [From Flagyl] Allergy (Verified 04/07/20 21:33) Rash - Pertinent Past Medical History Medical History: Past Medical History (Last Updated 02/02/19 @ 16:[address] Narendra Pringle MD) Asthma Nephrolithiasis Oppositional defiant disorder Surgical History: Past Surgical History (Last Updated 02/02/19 @ 16:[address] Narendra Pringle MD) H/O lithotripsy Physical Exam Vitals: Vital Signs Temp Pulse BP Pulse Ox 97.3 F L 94 137/81 H 98 03/22/20 08:58 03/22/20 08:58 03/22/20 08:58 03/22/20 08:58 NST - FHR Rate Baby A NST Reactive:: Yes FHR Category:: Category I Impression/Plan Mandeep right history 33+ week intrauterine for routine nonstress test. Reactive. Continue twice weekly nonstress testing. 04/08/202047 Date Sascha Chapman MD Cosigner Signature (if applicable): Date CC: Dr. Sascha Chapman MD; Dr. Marya Day MD Signed Reviewed by SASCHA BASIC METABOLIC PROFILE (BMP) 04/07/20 NOTE Original Ordering Provider: Narendra Pringle GLU 98 mg/dL 74-106 Please note revised GLUCOSE reference range effective 12/04/2017. BUN 8 mg/dL 7-18 CREAT,SERUM 0.54 mg/dL 0.55-1.02 L The validity of the calculated GFR AND GFRAA in patients over 70 years has not been determined. Clinical correlation is essential. EST GFR 144 mL/min >60 Non- GFR Calc EST GFR - AA 175 mL/min >60 GFR Calc ESTIMATED CRCL 149.09 ml/min BUN/CRE 14.7 RATIO 10-20 CA 10.1 mg/dL 8.5-10.1 NA 138 mmol/L 136-145 K 3.7 mmol/L 3.5-5.1 CL 105 mmol/L 98-107 CO2 24.0 mmol/L 21.0-32.0 GAP 9 5-15 Reviewed by NARENDRA URINALYSIS, COMPLETE 04/07/20 NOTE Original Ordering Provider: Narendra Pringle COLOR Red Yellow CLARITY Cloudy Clear GLUCOSE, UR Normal mg/dl Normal BILIRUBIN URINE Negative mg/dL Negative KETONE UR 5 mg/dl Negative H SP.GR. DIPSTX 1.020 1.002-1.030 PH UR 6.5 5.0 - 8.0 r PROT DIPSTX 100 mg/dl Negative H UROBILI Normal mg/dl Normal NITRITE UR Negative Negative OCCULT BLOOD-UR 250 /ul Negative H LEUK ESTERASE 100 /ul Negative H WBC 0-5 SEEN /hpf 0-5 RBC-UA > 100 SEEN /hpf 0-5 Microscopic field is filled. Other elements may be obscured. SQUAM EPI 0-5 SEEN /hpf 5-10 BACTERIA 0 SEEN /hpf None Seen MUCUS, URINE 0 SEEN /hpf <OR=2+ HYALINE CAST 0-5 SEEN /lpf 0-5 Reviewed by NARENDRA OB TRIAGE PROGRESS NOTE 04/05/[address] [facility] Medical Records Department [address] [place] [address] OB Triage Progress Note 04/05/20 1940 MR#: [id number] Acct: [id number] Name: LUIS LEONE Rep #: [id number] : 1995 24 From: Bella Leone CNM PCP: Dr. Marya Day MD Status:DEP I Y DOS: Location: [facility] Progress Notes Date of Service: 04/05/20 Progress Note: Scheduled routine NST. FHR baseline 135, +accels, -decels, moderate variability. Category I Reports good FM Has appt in the OB office immediately following 04/06/20 0847 Date Bella Leone CNM 04/08/20 0940 Cosigner Signature (if applicable): Date Narendra Dyson MD CC: MARY Leone; Dr. Marya Day MD; Dr. Narendra Pringle MD Signed Reviewed by NARENDRA CULTURE, GROUP B STREPTOCOCCUS 04/05/20 NOTE Original Ordering Provider: MARY Leone JOHN Culture Group B Beta Streptococcus is not isolated. Reviewed by SASCHA Reviewed by NARENDRA CULTURE, URINE 04/02/20 NOTE Original Ordering Provider: Sascha Chapman Urine Culture Further studies to follow. ORGANISM 1: Mixed Gram Positive Organisms [place] Count 50,000-80,000 MIX CULTURE Mixed contaminants. Submit a new specimen if indicated. Reviewed by SASCHA PROGRESS NOTE 03/26/[address] [facility] Medical Records Department [address] [place] [address] Progress Note 03/26/202131 MR#: [id number] Acct: [id number] Name: LUIS LEONE Rep #: [id number] : 1995 From: Bella Leone CNM PCP: Dr. Marya Day MD Status:DEP CLI Y Location: [facility] Progress Note Scheduled NST today. FHR baseline 130, +accels, -decels, moderate variability. No uterine contractions noted. NST reactive, Category I. To discharge and follow up in office as planned. 03/26/202132 Date Bella Leone CNM 03/28/20 1235 Cosigner Signature (if applicable): Date Sascha Chapman MD CC: Signed Reviewed by SASCHA PEARSON, URINE 03/22/20 NOTE Original Ordering Provider: Sascha Chapman Urine Culture ORGANISM 1: Mixed Gram Positive Organisms [place] Count 50,000-80,000 MIX CULTURE Mixed contaminants. Submit a new specimen if indicated. Reviewed by SASCHA MR/OB.TRI.HP 03/12/[address] [facility] Medical Records Department [address] [place] [address] OB Triage Physician Note 03/12/201928 MR#: [id number] Acct: [id number] Name: LUIS LEONE Rep #: [id number] : 1995 From: Bella Leone CNM PCP: Dr. Marya Day MD Status:DEP CLI Y Location: [facility] - Problem List (1) 32 weeks gestation of Status: Acute (2) Gestational hypertension Status: Acute Qualifiers: Trimester: third trimester Qualified Code(s): O13.3 - Gestational [- induced] hypertension without significant proteinuria, third trimester (3) Non-stress test reactive Status: Acute History of Present Illness Date of Service: 03/12/20 Was patient seen by the physician?: No Reason For Visit: RULE OUT PIH Date of Service: 03/12/20 Final SUNITHA: 05/01/20 Final SUNITHA Source: US <20 weeks Gestational age: 32 Weeks and 6 Days History of Present Illness: Called in to OB office with BPs in the range of 160s/90s. Was sent to for pre-eclampsia workup. Allergies metronidazole [From Flagyl] Allergy (Verified 03/12/20 18:10) Rash - Pertinent Past Medical History Medical History: Past Medical History (Last Updated 02/02/19 @ 16:[address] Narendra Pringle MD) Asthma Nephrolithiasis Oppositional defiant disorder Surgical History: Past Surgical History (Last Updated 02/02/19 @ 16:[address] Narendra Pringle MD) H/O lithotripsy Laboratory Studies: Laboratory Tests 03/12/20 03/12/20 03/12/20 Range/Units 18:16 18:16 18:16 WBC 11.2 H (4.4-11.0) K/mm3 RBC 4.17 L (4.2-5.4) M/mm3 Hgb 11.9 L (12.0-15.0) g/dL Hct 36.4 L (37-47) % MCV 87.3 (81-99) fL MCH 28.5 (27.0-32.0) pg MCHC 32.7 (32-36) g/dL RDW Std Deviation 41.8 (35.1-43.9) fl RDW Coeff of Dennis 13.2 (11.6-14.6) % Plt Count 357 (150-450) K/mm3 MPV 10.1 (6.2-12.0) fl PT 13.4 (11.7-14.9) SECONDS INR 1.1 APTT 31.6 (24.1-36.2) Seconds Creatinine 0.44 L (0.55-1.02) mg/dL Estim Creat Clear Calc 182.97 ml/min Est GFR (MDRD) Af Amer 225 (>60) mL/min Est GFR (MDRD) Non-Af 186 (>60) mL/min Uric Acid 3.1 (2.6-6.0) mg/dL AST 11 L (15-37) U/L ALT 8 L (13-56) U/L U Random Total Protein (<11.9) mg/dL Urine Creatinine (NO RANGE EST.) mg/dL Protein/Creatinin Ratio (0-200) mg/g CRE 03/12/20 Range/Units 18:15 WBC (4.4-11.0) K/mm3 RBC (4.2-5.4) M/mm3 Hgb (12.0-15.0) g/dL Hct (37-47) % MCV (81-99) fL MCH (27.0-32.0) pg MCHC (32-36) g/dL RDW Std Deviation (35.1-43.9) fl RDW Coeff of Dennis (11.6-14.6) % Plt Count (150-450) K/mm3 MPV (6.2-12.0) fl PT (11.7-14.9) SECONDS INR APTT (24.1-36.2) Seconds Creatinine (0.55-1.02) mg/dL Estim Creat Clear Calc ml/min Est GFR (MDRD) Af Amer (>60) mL/min Est GFR (MDRD) Non-Af (>60) mL/min Uric Acid (2.6-6.0) mg/dL AST (15-37) U/L ALT (13-56) U/L U Random Total Protein 24.3 H (<11.9) mg/dL Urine Creatinine 92.50 (NO RANGE EST.) mg/dL Protein/Creatinin Ratio 263 H (0-200) mg/g CRE Review of Systems Constitutional: Denies: Chills, Fever, Weight Change HEENT: Denies: Head Aches, Sinus Congestion, Sinus Drainage Cardiovascular: Denies: Chest Pain, Palpitations Respiratory: Denies: Cough, Shortness of breath at rest, Sputum production Gastrointestinal: Denies: Abdominal Pain, Nausea, Vomiting Genitourinary: Denies: Dysuria Musculoskeletal: Denies: Joint Pain, Joint Tenderness Skin: Denies: Rash, Wounds Neurological: Denies: Numbness, Tingling, Focal weakness Psychiatric: Denies: Anxiety, Depression, Homicidal Ideations, Suicidal Ideations Hematologic/ Lymphatic: Denies: Easy Bruising, Easy Bleeding Physical Exam Vitals: Vital Signs Temp Pulse BP Pulse Ox 98.4 F 91 124/69 H 99 03/12/20 17:50 03/12/20 19:20 03/12/20 19:20 03/12/20 17:50 General: Alert, Oriented x3, No apparent distress HEENT: Atraumatic, Normocephalic. Negative for: Thyromegaly, Lymphadenopathy Cardiovascular: Regular rate, Regular Rhythm Lungs: Clear to auscultation Abdomen: Bowel Sounds Present, Gravid Neurological: Deep Tendon Reflexes 2+/4 and Symmetrical, Neuro grossly intact DRAWER IN: Normal external genitalia. Negative for: Vulvar lesions NST - FHR Rate Baby A Baseline: 125 Variability:: Moderate Accelerations:: 15 x 15 Decelerations:: None NST Reactive:: Yes FHR Category:: Category I Uterine Activity:: quiet Impression/Plan A/P: at 32.6 weeks gestation Gestational hypertension, currently taking Labetalol 100mg BID Serial BPs WNL Pre-eclampsia labs all WNL except mildly elevated protein/creatinine ratio To bring BP cuff into office at next appt to check Denies headache, blurred vision, RUQ pain or edema NST reactive Category I, okay to cancel NST tomorrow at WP Discharge home 03/12/20 1943 Date Bella Leone CNM 03/13/20 0835 Cosigner Signature (if applicable): Date Sascha Chapman MD CC: MARY Leone; Dr. Sascha Chapman MD; Dr. Marya Day MD Signed Reviewed by SASCHA PARTIAL THROMBOPLAST TIME 03/12/20 NOTE Original Ordering Provider: MARY Leone PTT 31.6 Seconds 24.1-36.2 Reviewed by SASCHA PROTHROMBIN TIME W/INR 03/12/20 NOTE Original Ordering Provider: MARY Leone PROTIME 13.4 SECONDS 11.7-14.9 INR 1.1 Reviewed by SASCHA ALANINE AMINOTRANSFERAS (SGPT) 03/12/20 NOTE Original Ordering Provider: MARY Leone ALT 8 U/L 13-56 L Reviewed by SASCHA AST(SGOT) 03/12/20 NOTE Original Ordering Provider: MARY Leone AST 11 U/L 15-37 L Reviewed by SASCHA URIC ACID 03/12/20 NOTE Original Ordering Provider: MARY Leone URIC 3.1 mg/dL 2.6-6.0 The drugs N-Acetylcysteine and Metamizole may falsely depress this assay. Reviewed by SASCHA SERUM CREATININE AND GFR 03/12/20 NOTE Original Ordering Provider: AMENASajan Leone CREAT,SERUM 0.44 mg/dL 0.55-1.02 L The validity of the calculated GFR AND GFRAA in patients over 70 years has not been determined. Clinical correlation is essential. EST GFR 186 mL/min >60 Non- GFR Calc EST GFR - AA 225 mL/min >60 GFR Calc ESTIMATED CRCL 182.97 ml/min Reviewed by SASCHA CBC-COMPLETE BLOOD CNT NO DIFF 03/12/20 NOTE Original Ordering Provider: MARY Leone WBC 11.2 K/mm3 4.4-11.0 H RBC 4.17 M/mm3 4.2-5.4 L HGB 11.9 g/dL 12.0-15.0 L HCT 36.4 % 37-47 L MCV 87.3 fL 81-99 MCH 28.5 pg 27.0-32.0 MCHC 32.7 g/dL 32-36 RDW CV 13.2 % 11.6-14.6 RDW SD 41.8 fl 35.1-43.9 PLT 357 K/mm3 150-450 MPV 10.1 fl 6.2-12.0 Reviewed by SASCHA PROTEIN+CREATININE RATIO,URINE 03/12/20 NOTE Original Ordering Provider: MARY Leone UR CREAT 92.50 mg/dL NO RANGE EST. PROTEIN,UR.RAN. 24.3 mg/dL <11.9 H PROT:CRE RATIO 263 mg/g CRE 0-200 H Reviewed by SASCHA MR/OB.TRI.HP 03/09/[address] [facility] Medical Records Department [address] [place] [address] OB Triage Physician Note 03/09/20 1823 MR#: [id number] Acct: [id number] Name: LUIS LEONE Rep #: [id number] : 1995 24 From: Bella Leone CNSajan PCP: Dr. Marya Day MD Status:DEP CLI Y Location: OBT - Problem List (1) Non-stress test reactive Status: Acute History of Present Illness Date of Service: 03/09/20 Was patient seen by the physician?: No Reason For Visit: NST Date of Service: 03/09/20 Final SUNITHA: 05/01/20 Final SUNITHA Source: US <20 weeks Gestational age: 32 Weeks and 3 Days History of Present Illness: Sent from office for NST Allergies metronidazole [From Flagyl] Allergy (Verified 03/09/20 17:13) Rash - Pertinent Past Medical History Medical History: Past Medical History (Last Updated 02/02/19 @ 16:[address] Narendra Pringle MD) Asthma Nephrolithiasis Oppositional defiant disorder Surgical History: Past Surgical History (Last Updated 02/02/19 @ 16:[address] Narendra Pringle MD) H/O lithotripsy Review of Systems Constitutional: Denies: Chills, Fever, Weight Change HEENT: Denies: Head Aches, Sinus Congestion, Sinus Drainage Cardiovascular: Denies: Chest Pain, Palpitations Respiratory: Denies: Cough, Shortness of breath at rest, Sputum production Gastrointestinal: Denies: Abdominal Pain, Nausea, Vomiting Genitourinary: Denies: Dysuria Musculoskeletal: Denies: Joint Pain, Joint Tenderness Skin: Denies: Rash, Wounds Neurological: Denies: Numbness, Tingling, Focal weakness Psychiatric: Denies: Anxiety, Depression, Homicidal Ideations, Suicidal Ideations Hematologic/ Lymphatic: Denies: Easy Bruising, Easy Bleeding Physical Exam Vitals: Vital Signs Pulse BP 79 141/78 H 03/09/20 16:04 03/09/20 16:04 General: Alert, Oriented x3, No apparent distress HEENT: Atraumatic, Normocephalic. Negative for: Thyromegaly, Lymphadenopathy Cardiovascular: Regular rate, Regular Rhythm Lungs: Clear to auscultation Abdomen: Bowel Sounds Present, Gravid Neurological: Deep Tendon Reflexes 2+/4 and Symmetrical, Neuro grossly intact DRAWER IN: Normal external genitalia. Negative for: Vulvar lesions NST - FHR Rate Baby A Baseline: 120 Variability:: Moderate Accelerations:: 15 x 15 Decelerations:: None NST Reactive:: Yes FHR Category:: Category I Uterine Activity:: quiet Impression/Plan Category I reactive NST, okay to discharge home. To have bi-weekly NSTs in . 03/09/20 1827 Date Bella Leone CNM 03/12/20 1010 Cosigner Signature (if applicable): Date Sascha Chapman MD CC: MARY Leone; Dr. Sascha Chapman MD; Dr. Marya Day MD Signed Reviewed by SASCHA GLUCOSE CHALLENGE GEST 1H 50G 02/09/20 NOTE Original Ordering Provider: Narendra Burroughs GLU GEST 50G 1H 128 mg/dL 70-140 Reviewed by SASCHA CBC-COMPLETE BLOOD CNT NO DIFF 02/09/20 NOTE Original Ordering Provider: Narendra Burroughs WBC 12.9 K/mm3 4.4-11.0 H RBC 4.20 M/mm3 4.2-5.4 HGB 11.9 g/dL 12.0-15.0 L HCT 36.8 % 37-47 L MCV 87.6 fL 81-99 MCH 28.3 pg 27.0-32.0 MCHC 32.3 g/dL 32-36 RDW CV 13.4 % 11.6-14.6 RDW SD 42.9 fl 35.1-43.9 PLT 384 K/mm3 150-450 MPV 11.0 fl 6.2-12.0 Reviewed by SASCHA CULTURE, URINE 01/06/20 NOTE Original Ordering Provider: Sascha Chapman Urine Culture ORGANISM 1: Mixed Gram Pos AND Gram Neg Org [place] Count 11,000-25,000 MIX CULTURE Mixed contaminants. Submit a new specimen if indicated. Reviewed by SASCHA URINALYSIS, COMPLETE 01/06/20 NOTE Original Ordering Provider: Sascha Chapman COLOR Yellow Yellow CLARITY Sl. Cloudy Clear GLUCOSE, UR Normal mg/dl Normal BILIRUBIN URINE Negative mg/dL Negative KETONE UR 5 mg/dl Negative H SP.GR. DIPSTX 1.010 1.002-1.030 PH UR 7.0 5.0 - 8.0 PROT DIPSTX Negative mg/dl Negative UROBILI Normal mg/dl Normal NITRITE UR Negative Negative OCCULT BLOOD-UR 10 /ul Negative H LEUK ESTERASE 100 /ul Negative H WBC 0-5 SEEN /hpf 0-5 RBC-UA 0 SEEN /hpf 0-5 SQUAM EPI 0-5 SEEN /hpf 5-10 BACTERIA RARE /hpf None Seen MUCUS, URINE 0 SEEN /hpf <OR=2+ Reviewed by NATHANIEL INFLUENZA A+B (RAPID FELI) 01/06/20 NOTE Original Ordering Provider: Sascha Chapman Has pt arrived? Y FLU A/B Rapid Influenza Ag, Direct Presumptive NEGATIVE for Influenza A/B Antigen (See Note) Reviewed by NATHANIEL RPR 09/19/19 NOTE Original Ordering Provider: Sascha Chapman RPR NONREACTIVE NONREACTIVE Reviewed by MARCO HEPATITIS C ANTIBODY 09/19/19 NOTE Original Ordering Provider: Sascha Chapman HEPATITIS C AB Non-Reactive Nonreactive Non Reactive: < 0.8 Equivocal: >/= 0.8 to < 1.0 Reactive: >/= 1.0 The CDC recommends that a reactive/equivocal HCV antibody result be followed up by the HCV Nucleic Acid Amplification test (665584) Reviewed by MARCO HEPATITIS B SURFACE ANTIGEN 09/19/19 NOTE Original Ordering Provider: Sascha Chapman HEPB SURFACE AG Non-Reactive Nonreactive Reviewed by MARCO HIV - H 09/19/19 NOTE Original Ordering Provider: Sascha Chapman HIV - [facility] Non-Reactive Nonreactive Reviewed by MARCO RUBELLA IGG 09/19/19 NOTE Original Ordering Provider: Sascha Chapman RUBELLA IGG 67.6 IU/mL Antibody results Interpretation of Immune Status < 5 IU/ml Presumed Non-immune 5 - < 10 IU/ml Equivocal > or = 10 IU/ml Presumed Immune Reviewed by MARCO T AND S-NO CHARGE W/PNP 09/19/19 Reason for Type AND Screen/Red Cells: Surgery? [facility]~[address] [place], [address]~ BLOOD TYPE GEL O POSITIVE N AB SCREEN GEL NEGATIVE N Reviewed by MARCO URINALYSIS, ROUTINE (DIPSTICK) 09/19/19 NOTE Original Ordering Provider: Sascha Chapman COLOR Yellow Yellow CLARITY Clear Clear GLUCOSE, UR Normal mg/dl Normal BILIRUBIN URINE Negative mg/dL Negative KETONE UR Negative mg/dl Negative SP.GR. DIPSTX 1.020 1.002-1.030 PH UR 7.0 5.0 - 8.0 w PROT DIPSTX 15 mg/dl Negative H UROBILI Normal mg/dl Normal NITRITE UR Negative Negative OCCULT BLOOD-UR 10 /ul Negative H LEUK ESTERASE 25 /ul Negative H Reviewed by MARCO CBC W/DIFF, AUTOMATED 09/19/19w NOTE Original Ordering Provider: Sascha Chapman WBC 8.2 K/mm3 4.4-11.0 RBC 4.43 M/mm3 4.2-5.4 HGB 12.0 g/dL 12.0-15.0 HCT 38.1 % 37-47 MCV 86.0 fL 81-99 MCH 27.1 pg 27.0-32.0 MCHC 31.5 g/dLw 32-36 L RDW CV 15.2 % 11.6-14.6 H RDW SD 48.0 fl 35.1-43.9 H PLT 382 K/mm3 150-450 MPV 10.2 fl 6.2-12.0 NEUT% 58.8 % 47-70 LY% 29.5 % 19-41 MONO% 8.5 % 0-10 EO% 2.4 % 0-5 BASO% 0.2 % 0-1 IM GRAN % 0.600 % 0.0-0.9 IG% - Immature Granulocytes (promyelocytes, myelocytes and metamyelocytes) > 1% indicates that a LEFT SHIFT is Present. ABSOLUTE NEUT 4.8 X10 3/uL 2.0-7.7 ABSOLUTE LYMPH 2.43 X10 3/uL 0.83-4.51 NRBC, FLAGGED 0 % 0-5 Reviewed by MARCO THYROID STIM HORMONE (TSH) 09/19/19 NOTE Original Ordering Provider: Sascha Chapman TSH 1.58 uIU/mL 0.358-3.74 Reviewed by MARCO URINE DRUG SCREEN (VISTA) 09/19/19 NOTE Original Ordering Provider: Sascha Chapman TO BE CONFIRMED CONFIRMATORY TESTING FOR ALL POSITIVE URINE DRUG SCREEN RESULTS WILL ONLY BE SENT OUT UPON PHYSICIAN ORDER. VISTA Urine Drug Screen methods provide only preliminary analytical test results. A more specific alternate chemical method must be used in order to obtain a confirmed analytical result. Gas chromatography/mass spectrometery (GC/MS) is the preferred confirmatory method. Clinical consideration and professional judgement should be applied to any drug of abuse test result, particularly when preliminary positive results are used. URINE TCA TESTING MUST BE ORDERED SEPARATELY. USE TEST MNEMONIC: UTCA Reviewed by MARCO CT/ARBEN [facility] BY PCR 09/13/19 NOTE Original Ordering Provider: Sascha Chapman CHLAM TRA PCR Negative Negative NG BY PCR Negative Negative Reviewed by SASCHA Impression /Plan: 36 weeks 6-day intrauterine for repeat with severe abdominal pain. Bedside ultrasound shows thinning of the uterus over the incision line of the uterus. I am concerned about progressing abrup tion or uterine dehiscence given that the symptoms are this severe and do not match kidney stone pain or pyelonephritis symptoms. She received a single dose of steroids approximately 4 hours ago and her pain persists. Given this we will proceed with repeat . Preparations in progress for delivery. Procedure Criteria Procedure Type: Essential Procedure Essential: Yes Criteria Statement: On 01/17/2020 the [place] Department of Health ([facility]) Public Order signed by [facility] Director Zenia Dan M.D., regarding the Management of Non-Essential Surgeries and Procedures for the purpose of preserving Personal Protective Equipment (PPE) and critical hospital capacity and resources within [place] went into effect as of 01/18/2020 at 5:00PM. According to the [facility] Public Order: This action will remain in full force and effect until the State of Emergency declared by the Governor no longer exists or the Director of the [facility] rescinds or modifies this Order. This [facility] order stated all non-essential or elective surgeries and procedures that utilize PPE should be delayed unless there is undue risk to the current or future health of a patient. After reviewing the aforementioned [facility] Public Order and the patient's clinical case, I have determined that the scheduled procedure meets the criteria to go forward. Risk to Patient if Procedure Delayed: Risk of rapidly worsening to severe symptoms if delayed
--- NOTE | 2020-04-09 20:41 | PCM.OPRPT ---
Delivery Classification: MARILU Final SUNITHA: 05/01/20 Gestational age: 37 Weeks and 0 Days doctor who attended delivery (if requested by OB): Jaimee Kurtz - 36w6d gestation rn medical surgical: Adama Peters Type of Anesthesia:: Spinal Implants Used: None Date of Procedure: 04/09/20 Pre-Operative Diagnosis: 36W6D Gestation with Severe Abdominal Pain; Possible Uterine Dehiscence; Possible Abruption Post-Operative Diagnosis: 36W6D Gestation with Severe Abdominal Pain; Possible Uterine Dehiscence; Possible Abruption Description of Procedure: Surgeon: Miguelangel Chapman MD, FACOG Anesthesia: Mendel Turcios CRNA Anesthesia: Spinal Procedure: Repeat Low Transverse Cervical Caesarean Section Indication: This is a 24-year-old who presents for her second at 36+6 days weeks gestation. She presented approximately 24 hours ago with severe abdominal pain which has been unrelenting. White count is essentially normal and ultrasound of the right renal system showed no evidence of kidney stones. Further, her pain was constant and rated as 9 out of 10 during this entire time except for about an hours of relief using IV Dilaudid. care has otherwise been uneventful except she is on labetalol for chronic hypertension. Patient is morbidly obese and monitoring difficult. Bedside ultrasound showed thinned uterine wall. Given the possibility of abruption early dehiscence with severe abdominal pain it was decided to proceed with section. The patient has been counseled regarding the risk and indications of this procedure including the possibility of bleeding infection and injury to surrounding structures such as bowel bladder. All questions were answered. Procedure: Patient was taken to the operating room where after spinal anesthesia was placed, the patient was prepped and draped in usual sterile fashion and a Marie catheter was placed. The abdomen was entered through the patient's prior Pfannenstiel incision and peritoneum was entered bluntly. After developing a bladder flap on the lower uterine segment a low transverse incision was made on the uterus and head was easily delivered onto the operative field the nose mouth and oropharynx were bulb suctioned. Subsequently a viable male was born with Apgars of 6/7/8. The was noted to cry move all extremities vigorously on the operative field. The umbilical cord was doubly clamped and ligated and handed to the nursery personnel who were present for the delivery. Placenta was delivered and noted to be 3 vessels and normal. Uterus was exteriorized and remaining placental tissue was removed. The uterus was then closed in 2 layers first with running locked 0 Vicryl suture followed by a second imbricating layer with 0 Vicryl suture. 0 Vicryl suture was then used in a horizontal mattress interrupted fashion to affect final hemostasis of the uterine incision line. Normal fallopian tubes and ovaries were visualized and the uterus was returned to the pelvis. Hemostasis was noted and rectus abdominis muscles were reapproximated in the midline with interrupted Number 0 Vicryl suture in a horizontal mattress fashion. Fascia was closed with running Number 1 PDS Strata fix suture. Subcutaneous tissue was irrigated with copious amounts of saline solution and then closed with running 3-0 Vicryl suture in 2 layers. Skin was closed with 4-0 monocryl suture in a running subcuticular fashion. Steri strips and a Mepilex dressing were placed across the incision. The patient tolerated the procedure well and was taken to the recovery room in satisfactory condition. Sponge, needle, and instrument counts were all reportedly correct. EBL was less than 500 cc. Ancef 2 gms IV was given prior to the procedure. Spicemen to Pathology: Placenta Complications: None Amniotic Fluid Description: Clear Placenta Disposition: Sent to Pathology Specimen(s) sent to pathology: Placenta Drain: Marie to straight drain Fluids Replaced: Crystalloid Cord Entanglement: Around neck x 1, tight, - - Around body tight Cord Vessel Description: 3 Vessels Esitmated Blood Loss (ml): 500 cc Infant Gender: Male (1 minute): 6 (5 minute): 7 Antibiotic Given: Ancef 2 grams IV x1 Pt instructed on risks of surgery: Bleeding, Infection, Injury to surrounding structure(s) including bowel and bladder Complications: None - Admit VTE Documentation VTE Present on Admission: Yes VTE Mechan Device Prophylaxis: SCD's VTE Pharm Prophylaxis ordered?: Yes
[2020-04-09] MEDS: Oxytocin 30 units/NS 500 ml 30 UNITS/500 ML IV.SOLN 167 UNITS IV (20:50)
--- NOTE | 2020-04-09 20:50 | DCINST_ITS ---
Discharge Diet: No Restrictions Discharge Activity: May Not Drive - for 2 weeks, May not drive while taking narcotic pain medications., May Shower, May Take a Tub Bath May resume sexual activity in: 4-6 weeks Lifting Restrictions: 20 pounds Additional Activity Instructions:: Nothing in the vagina for 4-6 weeks. You may return to work/school in 6 weeks. Call your doctor if your incision/area has: Continuous Slow Oozing, Sudden Increased Bleeding, Increased Pain/ Swelling, Increased Redness, Foul Smelling Discharge Call your doctor if you observe: Fever of 101 or Higher, Inability to urinate, Inability to have a bowel movement, Using more than one pad per hour Additional Instructions: If you experience any of the following, contact your healthcare provider. * Bleeding that soaks a pad every hour for 2 hours * Fever 100.4 or higher * Unrelieved incision or abdominal pain * Swelling, redness, discharge or bleeding from your incision or episiotomy site * Your incision begins to separate * Problems urinating (including inability to urinate or burning while urinating). * Visual changes * Severe headache * Flu-like symptoms * Pain or redness in one of both of your breasts * Pain, warmth, tenderness or swelling in your legs, especially the calf area * Frequent nausea and vomiting * Symptoms of depression or anxiety If you experience any of the following, call 911 or go to the nearest Emergency Room. * Chest pain * Problems breathing * Seizure activity * Partial or complete paralysis of a body part, slurred speech, weakness or drooping of the face, or a sudden inability to walk or hold your balance Allergies/Adverse Reactions: Allergies metronidazole [From Flagyl] Allergy (Verified 04/07/20 21:33) Rash Medications to take at Discharge RX: Vits [Prenatabs FA ] 1 tab PO DAILY 09/20/18 Aspirin [Aspir 81] 81 mg PO DAILY 01/06/20 Labetalol [Trandate] 100 mg PO BID 01/06/20 Ferrous Sulfate [Iron] 65 mg PO DAILY 03/12/20 RX: Budesonide Inhaler 180 mcg [Pulmicort Inhaler 180 mcg] 1 puff INHALATION PRN PRN 03/12/20 Vitamin D 2,000 units PO DAILY 03/12/20 Fluoxitine 10 mg PO DAILY 03/15/20 RX: Promethazine HCl 12.5 mg PO BID 04/07/20 Cephalexin [Keflex] 500 mg PO BID 04/09/20 Docusate Sodium [Colace] 100 mg PO BID PRN PRN #60 cap 04/09/20 RX: Oxycodone [Oxyir] 5 mg PO Q6H PRN PRN 7 Days #20 tablet 04/09/20 The following prescriptions were given: Docusate Sodium [Colace] 100 mg PO BID PRN PRN #60 cap PRN Reason: Constipation Transmission Status: Pending to [facility] RX: Oxycodone [Oxyir] 5 mg PO Q6H PRN PRN 7 Days #20 tablet PRN Reason: Pain Score 6-10/10 Transmission Status: Sent to [facility] Follow-Up: Call to make an appointment with your doctor for an incision check in 1-2 weeks. You will also need a 6 week post- follow up appointment. Test results from this visit will be discussed in further detail at your follow- up appointment, if applicable. Please Follow Up With: Miguelangel Chapman MD - [phone] When: Call to make an appointment for an incision check in 2 weeks. Primary Care Physician: Marya Day MD [Primary Care Provider] -
[2020-04-09] MEDS: Acetaminophen 500 MG Tablet 1000 MG PO (23:30)
[2020-04-10] VITALS (10 sets, daily range): BP systolic 114–144; BP diastolic 64–88; PULSE 76–86; RESP 18–72; TEMP 36–37.1; O2SAT 96–97
[2020-04-10] MEDS: Lactated Ringers 1,000 ML 100 ML IV (00:09)
[2020-04-10] MEDS: Ketorolac 30 MG/ML Syringe IV (02:00)
[2020-04-10] MEDS: Cefazolin 1 GM/50 ML BAG IV (03:55)
[2020-04-10] MEDS: oxyCODONE 5 MG Tablet PO ×5 (03:55→22:14)
[2020-04-10] MEDS: Budesonide Respules 0.5 MG/2 ML AMPUL.NEB. INHALATION ×2 (07:12→19:02)
[2020-04-10 08:00] LABS: Hematocrit 31.2 % (37-47); Mean Corp Hgb Conc 32.1 g/dL (32-36); Mean Corpuscular Hgb 28.6 pg (27.0-32.0); Mean Corpuscular Volume 89.1 fL (81-99); Mean Platelet Vol. 10.7 fl (6.2-12.0); Platelet Count 347 K/mm3 (150-450); RBC Distribution Width CV 13.7 % (11.6-14.6); RBC Distribution Width SD 44.7 fl (35.1-43.9); White Blood Count 14.5 K/mm3 (4.4-11.0)
--- NOTE | 2020-04-10 08:01 | PN.OBGYN_ITS ---
Patient Problems: Active and Suspected Problems (Last Updated 02/02/19 @ 16:[address] Ana Lilia Pringle MD) 36 weeks gestation of (Acute) Flank pain (Acute) Hematuria (Acute) Subjective: Patient without complaints. Tolerating diet well. Pain well controlled. Denies flatus. Severe pain she was having prior to surgery is gone. Baby was transported to [place] with possibility of reverse transport in the next 1 to 2 days. Objective: Wound is clean, dry, intact covered with Mepilex dressing that is clear. Hemoglobin okay. Good urine output. Vital signs stable. Afebrile. - Physical Exam Vitals/I&O's: Vital Signs Temp Pulse Resp BP Pulse Ox 97.1 F L 81 18 114/64 96 04/10/20 03:55 04/10/20 07:13 04/10/20 07:13 04/10/20 03:55 04/10/20 03:55 Oxygen Delivery Method Room Air Weight: 301 lb Body Mass Index (BMI) 48.6 Intake and Output for Last 24 Hours 04/08/20 04/09/20 04/10/20 23:59 23:59 23:59 Intake Total 4159.17 / 4159.17 1401.67 / 1401.67 Output Total 1999 850 / 850 Balance 2159.17 / 2159.17 551.67 / 551.67 Laboratory Results 04/09/20 17:15: Blood Type O POSITIVE, Antibody Screen NEGATIVE 04/09/20 17:15: WBC 15.2 H, RBC 3.83 L, Hgb 11.0 L, Hct 34.3 L, MCV 89.6, MCH 28.7, MCHC 32.1, RDW Std Deviation 44.8 H, RDW Coeff of Dennis 13.9, Plt Count 307, MPV 10.2, Immature Gran % (Auto) 0.700, Neut % (Auto) 81.9 H, Lymph % (Auto) 8.6 L, [place] % (Auto) 8.0, Eos % (Auto) 0.7, Baso % (Auto) 0.1, Absolute Neuts (auto) 12.4 H, Absolute Lymphs (auto) 1.31, Nucleated RBC % 0 04/09/20 17:35: COVID-19 (BECKY) Not Detected 04/10/20 06:20: WBC 14.5 H, RBC 3.50 L, Hgb 10.0 L, Hct 31.2 L, MCV 89.1, MCH 28.6, MCHC 32.1, RDW Std Deviation 44.7 H, RDW Coeff of Dennis 13.7, Plt Count 347, MPV 10.7 Current Medications Acetaminophen (Tylenol) 1,000 mg PO Q8H PRN PRN PRN Reason: Pain Score 1-3/10;Temp>99.6F Last Admin: 04/09/20 23:30 Dose: 1,000 mg Documented by: Bisacodyl (Dulcolax) 10 mg RECTAL UD PRN PRN Reason: If no BM Budesonide (Pulmicort Aerosol) 0.5 mg INHALATION Q12H.RT [facility] Last Admin: 04/10/20 07:12 Dose: 0.5 mg Documented by: Enoxaparin Sodium (Lovenox) 40 mg SC DAILY [facility] Fluoxetine HCl (Prozac) 10 mg PO DAILY [facility] Hydrocortisone (Hytone) 1 applic TOPICAL TID PRN PRN; Protocol PRN Reason: Discomfort Hydromorphone HCl (Dilaudid Inj) 0.5 - 1.5 mg IV Q3H PRN PRN PRN Reason: Pain Score 4-10/10 Stop: 04/10/20 21:40 Last Admin: 04/09/20 22:03 Dose: 1 mg Documented by: Lactated Ringer's () 1,000 mls @ 100 mls/hr IV .Q10H [facility] Last Admin: 04/10/20 08:01 Dose: Not Given Documented by: Naloxone HCl 4 mg/ Dextrose 504 mls @ 0 mls/hr IV .Q0M PRN; Protocol PRN Reason: Respiratory depression Cefazolin Sodium () 1 gm in 50 mls @ 150 mls/hr IV Q8H [facility] Stop: 04/10/20 11:49 Last Infusion: 04/10/20 04:15 Dose: Infused Documented by: Ibuprofen (Motrin) 600 mg PO Q6H PRN PRN PRN Reason: Pain Score 1-3/10 Ketorolac Tromethamine (Toradol (Bkc)) 30 mg IV Q6H [facility] Stop: 04/11/20 20:31 Last Admin: 04/10/20 02:00 Dose: 30 mg Documented by: Labetalol HCl (Trandate) 100 mg PO BID [facility] Last Admin: 04/09/20 22:02 Dose: 100 mg Documented by: Methylergonovine Maleate (Methergine) 0.2 mg IM X1 PRN PRN Reason: Uterine Atony Naloxone HCl (Narcan) 0.02 mg IV Q1M PRN PRN Reason: RR <10 and pt unresponsive Ondansetron HCl (Zofran) 4 mg IV Q4H PRN PRN PRN Reason: Nausea Oxycodone HCl (Oxyir) 5 - 10 mg PO Q4H PRN PRN PRN Reason: Pain Score 4-10/10 Last Admin: 04/10/20 03:55 Dose: 5 mg Documented by: Prochlorperazine Edisylate (Compazine Iv) 10 mg IV Q6H PRN PRN PRN Reason: NAUSEA Senna/Docusate Sodium (Senokot-S, Enma-Colace) 0 tablet PO DAILY PRN PRN Reason: Constipation Simethicone (Mylicon) 80 mg PO PCHS PRN PRN Reason: Indigestion/stomach pain Sodium Chloride () 5 - 15 ml IV UD PRN PRN Reason: SALINE FLUSH Zolpidem Tartrate (Ambien (Generic)) 5 mg PO QHS PRN PRN PRN Reason: Insomnia Medical Necessity - Tobacco Use Smoking Status: Former smoker Assessment/Plan All Active Problems (Last Updated 02/02/19 @ 16:[address] Ana Lilia Pringle MD) 40 weeks gestation of (Acute) Pre-eclampsia (Acute) delivery delivered (Acute) Non-stress test reactive (Acute) 32 weeks gestation of (Acute) Gestational hypertension (Acute) 36 weeks gestation of (Acute) Flank pain (Acute) Hematuria (Acute) Doing well postoperative day #1 status post repeat . Continuing present care.
--- NOTE | 2020-04-10 09:54 | NURSING ---
IV infiltrated this am and dc'd with assessment. This RN awaiting lab results from [address] Chapman for further orders.
[2020-04-10] MEDS: FLUoxetine 10 MG Capsule PO (10:10)
[2020-04-10] MEDS: Enoxaparin 40 MG/0.4 ML Syringe SC (10:10)
[2020-04-10] MEDS: Labetalol 100 MG Tablet PO ×2 (10:11→22:15)
[2020-04-10] MEDS: Senna/Docusate Sodium 1 Tablet PO (10:11)
[2020-04-10] MEDS: Ibuprofen 600 MG Tablet PO ×2 (10:11→16:13)
[2020-04-10] MEDS: Acetaminophen 500 MG Tablet 1000 MG PO (19:48)
[2020-04-11] MEDS: Ibuprofen 600 MG Tablet PO ×2 (01:19→13:40)
[2020-04-11 01:22] VITALS: BP 123/70; PULSE 75; RESP 20; TEMP 36.7
[2020-04-11] MEDS: oxyCODONE 5 MG Tablet PO ×4 (04:43→15:15)
[2020-04-11 08:45] VITALS: BP 151/83; PULSE 73; RESP 14; TEMP 36.4
--- NOTE | 2020-04-11 08:49 | PN.OBGYN_ITS ---
Patient Problems: Active and Suspected Problems (Last Updated 02/02/19 @ 16:[address] Ana Lilia Pringle MD) 36 weeks gestation of (Acute) Flank pain (Acute) Hematuria (Acute) Subjective: Doing well this morning. Is only on oral pain medication with pain well controlled. Passing flatus. Urinating well. Denies heavy bleeding. Pumping breasts. Has been up ambulating in the room with no concerns. Wants to discharge today if son stays in [place]. Objective: VSS. Fundus is firm, midline, u/1. Incision is CDI. Lochia rubra scant. - Physical Exam Vitals/I&O's: Vital Signs Temp Pulse Resp BP Pulse Ox 98.0 F 75 20 H 123/70 H 96 04/11/20 01:22 04/11/20 01:22 04/11/20 01:22 04/11/20 01:22 04/10/20 16:21 Oxygen Delivery Method Room Air Weight: 136.531 kg Body Mass Index (BMI) 48.6 Intake and Output for Last 24 Hours 04/09/20 04/10/20 04/11/20 23:59 23:59 23:59 Intake Total 4159.17 / 4159.17 2201.67 / 2201.67 Output Total 1999 1550 / 1550 Balance 2159.17 / 2159.17 651.67 / 651.67 General: Alert, Oriented x3, Cooperative HEENT: Atraumatic, PERRLA, EOMI, Normocephalic Neck: Supple, No JVD, Negative Carotid Bruits Lungs: Clear to auscultation, Normal air movement Cardiovascular: Regular rate, No murmurs Abdomen: Bowel Sounds Present, Soft, Non Tender, - - fundus u/1, dressing CDI Extremities: No edema, Capillary Refill Less than 3 Seconds Skin: No rashes, No breakdown Musculoskeletal: No Tenderness to Palpation of Joints or Extremities Neurological: Cranial nerves II-XII grossly intact Psych/Mental Status: Normal Affect, Appropriate Current Medications Acetaminophen (Tylenol) 1,000 mg PO Q8H PRN PRN PRN Reason: Pain Score 1-3/10;Temp>99.6F Last Admin: 04/10/20 19:48 Dose: 1,000 mg Documented by: Bisacodyl (Dulcolax) 10 mg RECTAL UD PRN PRN Reason: If no BM Budesonide (Pulmicort Aerosol) 0.5 mg INHALATION Q12H.RT [facility] Last Admin: 04/10/20 19:02 Dose: 0.5 mg Documented by: Enoxaparin Sodium (Lovenox) 40 mg SC DAILY [facility] Last Admin: 04/10/20 10:10 Dose: 40 mg Documented by: Fluoxetine HCl (Prozac) 10 mg PO DAILY [facility] Last Admin: 04/10/20 10:10 Dose: 10 mg Documented by: Hydrocortisone (Hytone) 1 applic TOPICAL TID PRN PRN; Protocol PRN Reason: Discomfort Naloxone HCl 4 mg/ Dextrose 504 mls @ 0 mls/hr IV .Q0M PRN; Protocol PRN Reason: Respiratory depression Ibuprofen (Motrin) 600 mg PO Q6H PRN PRN PRN Reason: Pain Score 1-3/10 Last Admin: 04/11/20 01:19 Dose: 600 mg Documented by: Labetalol HCl (Trandate) 100 mg PO BID [facility] Last Admin: 04/10/20 22:15 Dose: 100 mg Documented by: Methylergonovine Maleate (Methergine) 0.2 mg IM X1 PRN PRN Reason: Uterine Atony Naloxone HCl (Narcan) 0.02 mg IV Q1M PRN PRN Reason: RR <10 and pt unresponsive Ondansetron HCl (Zofran) 4 mg IV Q4H PRN PRN PRN Reason: Nausea Oxycodone HCl (Oxyir) 5 - 10 mg PO Q4H PRN PRN PRN Reason: Pain Score 4-10/10 Last Admin: 04/11/20 04:43 Dose: 10 mg Documented by: Prochlorperazine Edisylate (Compazine Iv) 10 mg IV Q6H PRN PRN PRN Reason: NAUSEA Senna/Docusate Sodium (Senokot-S, Enma-Colace) 0 tablet PO DAILY PRN PRN Reason: Constipation Last Admin: 04/10/20 10:11 Dose: 1 tablet Documented by: Simethicone (Mylicon) 80 mg PO PCHS PRN PRN Reason: Indigestion/stomach pain Sodium Chloride () 5 - 15 ml IV UD PRN PRN Reason: SALINE FLUSH Zolpidem Tartrate (Ambien (Generic)) 5 mg PO QHS PRN PRN PRN Reason: Insomnia Medical Necessity - Tobacco Use Smoking Status: Former smoker Assessment/Plan All Active Problems (Last Updated 02/02/19 @ 16:[address] Ana Lilia Pringle MD) 40 weeks gestation of (Acute) Pre-eclampsia (Acute) delivery delivered (Acute) Non-stress test reactive (Acute) 32 weeks gestation of (Acute) Gestational hypertension (Acute) 36 weeks gestation of (Acute) Flank pain (Acute) Hematuria (Acute) False labor (Acute) POD #2 of repeat Tolerating oral pain medication Pumping breasts as son is in [place] Normal involution and course Would like to discharge today is son isn't returned
[2020-04-11 09:28] VITALS: PULSE 85; RESP 16
[2020-04-11] MEDS: Budesonide Respules 0.5 MG/2 ML AMPUL.NEB. INHALATION (09:28)
[2020-04-11 09:45] VITALS: BP 158/90
[2020-04-11] MEDS: Labetalol 100 MG Tablet PO (09:57)
[2020-04-11] MEDS: Senna/Docusate Sodium 1 Tablet PO (09:57)
[2020-04-11] MEDS: Enoxaparin 40 MG/0.4 ML Syringe SC (09:58)
[2020-04-11] MEDS: FLUoxetine 10 MG Capsule PO (09:58)
[2020-04-11 11:25] VITALS: BP 149/83
[2020-04-11] MEDS: Acetaminophen 500 MG Tablet 1000 MG PO (11:47)
[2020-04-11 14:50] VITALS: BP 149/89; PULSE 80; RESP 16; TEMP 36.3
== END 2020-04-11 16:15 | disposition home or self-care (01) | DRG 787 ==
LOC: WPOUT 16:34 → WP 16:34
PROVIDERS: Obstetrics & Gynecology; Admitting Provider Obstetrics & Gynecology; PCP Internal Medicine; Referring Provider Obstetrics & Gynecology; Visit Provider Obstetrics & Gynecology
PROC: (CPT 59514; principal; 2020-04-10 07:15)
DX: O75.89 Other specified complications of labor and delivery (principal); N02.9 Recurrent and persistent hematuria with unspecified morphologic changes; R10.9 Unspecified abdominal pain; O34.211 Maternal care for low transverse scar from previous cesarean delivery; O10.92 Unspecified pre-existing hypertension complicating childbirth; O69.1XX0 Labor and delivery complicated by cord around neck, with compression, not applicable or unspecified; O99.52 Diseases of the respiratory system complicating childbirth; J45.909 Unspecified asthma, uncomplicated; O99.62 Diseases of the digestive system complicating childbirth; K21.9 Gastro-esophageal reflux disease without esophagitis; O99.344 Other mental disorders complicating childbirth; F91.3 Oppositional defiant disorder; E66.01 Morbid (severe) obesity due to excess calories; O99.214 Obesity complicating childbirth; Z88.3 Allergy status to other anti-infective agents; Z87.442 Personal history of urinary calculi; Z87.891 Personal history of nicotine dependence; Z79.82 Long term (current) use of aspirin; Z79.899 Other long term (current) drug therapy; Z3A.37 37 weeks gestation of pregnancy; Z37.0 Single live birth
CPT/HCPCS: 59025; 59050; 76770; 76815; 80053; 84550; 85025; 85027; 86850; 86900; 86901; 87635; 94640; 99218; G2023; J7030; J7120; A4216; G0378; J0702; J2405; U0003

== ENCOUNTER 2021-08-17 03:28 | Emergency (ER) | payer MEDICAID, SELFPAY ==
[2021-08-17 03:30] VITALS: BP 153/111; PULSE 74; RESP 16; TEMP 36.6; O2SAT 100; BMI 47.8
--- NOTE | 2021-08-17 03:46 | EX.ED.DYSGE1 ---
HPI History of Present Illness Chief Complaint: Abd Pain Detail of Chief Complaint: Nausea and abdominal pain Informant: patient Onset/Context/Timing Onset: Days Context: Gradual Onset Timing: Waxes and wanes Current Severity: Mild Maximum Severity: Moderate Narrative Narrative: Patient presents with 1 week history of intermittent nausea. Over the past 4 days she has had some pain in the suprapubic and left lower quadrant region. She has a history of previous UTIs with similar symptoms. She also has a history of kidney stones and thinks that she may be . Last menstrual cycle was 2 weeks ago. She denies fever or chills. No cough. No vaginal discharge. [facility] Medical History Asthma Nephrolithiasis Oppositional defiant disorder Home Medications vit,[id number] [Prenatabs FA] 1 tab PO DAILY 09/20/18 [History Last Taken 04/06/20 22:00] aspirin 81 mg PO DAILY 01/06/20 [History Last Taken 04/06/20 22:00] labetalol 100 mg PO BID 01/06/20 [History Last Taken 04/08/20 08:00] Vitamin D 2,000 units PO DAILY 03/12/20 [History Last Taken 04/06/20] budesonide 1 puff INHALATION PRN PRN 03/12/20 [History Last Taken 03/28/20] ferrous sulfate 65 mg PO DAILY 03/12/20 [History Last Taken 04/06/20 22:00] Fluoxitine 10 mg PO DAILY 03/15/20 [History Last Taken 04/06/20] promethazine 12.5 mg PO BID 04/07/20 [History Last Taken 04/07/20] cephalexin 500 mg PO BID 04/09/20 [History Last Taken 04/08/20 22:00] docusate sodium 100 mg PO BID PRN PRN #60 cap 04/09/20 [Rx Last Taken Unknown] sulfamethoxazole-trimethoprim [Bactrim DS] 1 tab PO BID #6 tab 08/17/21 [Rx Last Taken Unknown] Allergy/AdvReac Type Severity Reaction Status Date / Time metronidazole [From Flagyl] Allergy Rash Verified 08/17/21 03:32 Surgical History H/O lithotripsy Previous section Social History Smoking Status: Former smoker ROS ROS ED Constitutional Constitutional ED: Denies chills or fever(s) Eyes Eyes: Denies change in vision ENT ENT ED: Denies sore throat Cardiovascular Cardiovascular: Denies chest pain Respiratory/Chest Respiratory/Chest: Denies cough or dyspnea Gastrointestinal Gastrointestinal: Reports abdominal pain and nausea; Denies diarrhea or vomiting Genitourinary Genitourinary ED: Reports urinary frequency; Denies dysuria Musculoskeletal Musculoskeletal: Denies back pain Integumentary Denies rash Neurologic Neurologic: Denies headache(s) or weakness Allergic/Immunologic Allergic/Immunologic ED: Denies urticaria EXAM Physical Exam Const Vital Signs: 08/17/21 03:30 Temperature 98 F Temperature Source Temporal Pulse Rate 74 Respiratory Rate 16 Blood Pressure 153/111 H Blood Pressure Mean 125 Pulse Ox 100 Oxygen Delivery Method Room Air Positive well nourished and well developed General Appearance ED: well developed HEENT Reports normocephalic and head/scalp atraumatic Eyes PERRL and EOMs intact bilaterally Neck supple Chest Wall inspection of chest normal and palpation of chest normal Resp normal respiratory effort and clear to auscultation bilaterally Cardio regular rate and regular rhythm GI Auscultation: hypoactive bowel sounds Palpation: soft and tender suprapubic Back/Spine no CVA tenderness Extremity normal to inspection Neuro oriented x3 and no sensory deficits noted Sensorium / Orientation: alert Motor Exam: strength 5/5 throughout Psych mental status grossly normal Skin no rashes or lesions noted MDM MDM MDM Narrative Medical decision making narrative: Blood work and urinalysis obtained. Lab Data Attestation: I reviewed the patient's lab results. Labs: Laboratory Results - last 24 hr 08/17/21 08/17/21 08/17/21 04:04 04:04 04:04 WBC 12.1 H RBC 5.01 Hgb 13.7 Hct 43.1 MCV 86.0 MCH 27.3 MCHC 31.8 L RDW Std Deviation 43.9 RDW Coeff of Dennis 14.1 Plt Count 367 MPV 10.2 Immature Gran % (Auto) 0.600 Neut % (Auto) 57.5 Lymph % (Auto) 31.6 [place] % (Auto) 6.3 Eos % (Auto) 3.5 Baso % (Auto) 0.5 Absolute Neuts (auto) 6.9 Absolute Lymphs (auto) 3.82 Nucleated RBC % 0 Sodium 137 Potassium 3.6 Chloride 106 Carbon Dioxide 22.0 Anion Gap 9 BUN 18 Creatinine 0.71 Estim Creat Clear Calc 112.41 Est GFR (MDRD) Af Amer 128 Est GFR (MDRD) Non-Af 106 BUN/Creatinine Ratio 25.4 H Glucose 92 Calcium 9.3 Serum , Qual NEGATIVE Urine Color Urine Clarity Urine pH Ur Specific [place] Urine Protein Urine Glucose (UA) Urine Ketones Urine Occult Blood Urine Nitrite Urine Bilirubin Urine Urobilinogen Ur Leukocyte Esterase Urine RBC Urine WBC Ur Squamous Epith Cells Urine Bacteria Urine Mucus 08/17/21 04:16 WBC RBC Hgb Hct MCV MCH MCHC RDW Std Deviation RDW Coeff of Dennis Plt Count MPV Immature Gran % (Auto) Neut % (Auto) Lymph % (Auto) [place] % (Auto) Eos % (Auto) Baso % (Auto) Absolute Neuts (auto) Absolute Lymphs (auto) Nucleated RBC % Sodium Potassium Chloride Carbon Dioxide Anion Gap BUN Creatinine Estim Creat Clear Calc Est GFR (MDRD) Af Amer Est GFR (MDRD) Non-Af BUN/Creatinine Ratio Glucose Calcium Serum , Qual Urine Color Yellow Urine Clarity Clear Urine pH 6.0 Ur Specific [place] 1.025 Urine Protein 15 H Urine Glucose (UA) Normal Urine Ketones Negative Urine Occult Blood 10 H Urine Nitrite Negative Urine Bilirubin Negative Urine Urobilinogen Normal Ur Leukocyte Esterase 100 H Urine RBC 0 SEEN Urine WBC 5-10 SEEN Ur Squamous Epith Cells 5-10 SEEN Urine Bacteria 1+ Urine Mucus 0 SEEN Radiography Diagnostic Testing: Clinical Impression(s) from Imaging Studies Abdomen/Pelvis CT 08/17/21 04:48 IMPRESSION: Punctate nonobstructing right nephrolithiasis. No evidence of acute obstruction of the kidneys. Unremarkable appendix Electronically Signed: Alexandr Nicolas DO at 5:07 EDT Tel , Service support , Treatment and Re-Evaluation Comments:: Blood work unremarkable. Patient does have white count of 12.1, but on review of prior labs she typically runs around this level. Renal function is normal. test negative. Urinalysis does show 5-10 white cells with 1+ bacteria, however 5-10 epithelial cells are also noted. No nitrates. Test results discussed with her. CT scan of the flank was obtained to ensure no evidence of kidney stone. There is a punctate right renal stone, but no left-sided stones noted. In light of this patient will be treated with 3 days of antibiotic for urine to ensure this is not an early infection causing her symptoms. She has had multiple previous UTIs with similar symptoms. Return instructions provided. Discharge Plan Triage Chief Complaint: Abd Pain ED Provider: Luna aNyak Dx/Rx/DC Orders Clinical Impression: Abdominal pain Instructions: ED Abdominal Pain Unkn Cause Male... Prescriptions: New sulfamethoxazole-trimethoprim [Bactrim DS] 800-160 mg tablet 1 tab PO BID Qty: 6 RF: 0 No Action vit,[id number] [Prenatabs FA] 1 TABLET tablet 1 tab PO DAILY RF: 0 aspirin 81 MG tablet,delayed release (DR/EC) 81 mg PO DAILY RF: 0 labetalol 100 MG tablet 100 mg PO BID RF: 0 ferrous sulfate 325 MG tablet 65 mg PO DAILY RF: 0 Vitamin D 2,000 units PO DAILY RF: 0 budesonide 1 PUFF inhaler 1 puff inhalation PRN PRN (Reason: Asthma) RF: 0 Fluoxitine 10 mg PO DAILY RF: 0 promethazine 12.5 MG tablet 12.5 mg PO BID RF: 0 cephalexin 500 MG capsule 500 mg PO BID RF: 0 docusate sodium 100 MG capsule 100 mg PO BID PRN PRN (Reason: Constipation) Qty: 60 RF: 1 Primary Care Provider: Marya Day Referrals: Marya Dya MD [Primary Care Provider] - 1 Week if not improving Disposition Disposition: Home, Self Care
[2021-08-17] MEDS: Ondansetron 4 MG/2 ML Vial IV (04:05)
[2021-08-17 04:13] LABS: Absolute Lymphocyte Count 3.82 X10^3/uL (0.83-4.51); Absolute Neutrophil Count 6.9 X10^3/uL (2.0-7.7); Basophil# 0.06 X10^3/uL; Basophil% 0.5 % (0-1); Eosinophil# 0.42 X10^3/uL; Eosinophils% 3.5 % (0-5); Hematocrit 43.1 % (37-47); Hemoglobin 13.7 g/dL (12.0-15.0); Lymphocyte # 3.82 X10^3/ul (0.83-4.51); Lymphocyte % 31.6 % (19-41); Mean Corp Hgb Conc 31.8 g/dL (32-36); Mean Corpuscular Hgb 27.3 pg (27.0-32.0); Mean Platelet Vol. 10.2 fl (6.2-12.0); Monocyte# 0.76 X10^3/uL; Monocyte% 6.3 % (0-10); NRBC Flagged by Analyzer 0 % (0-5); Neutrophil # 6.94 X10^3/uL (2.7-7.7); Neutrophil % 57.5 % (47-70); Platelet Count 367 K/mm3 (150-450); RBC Distribution Width CV 14.1 % (11.6-14.6); RBC Distribution Width SD 43.9 fl (35.1-43.9); Red Blood Count 5.01 M/mm3 (4.2-5.4); White Blood Count 12.1 K/mm3 (4.4-11.0)
[2021-08-17 04:22] LABS: Mucous, Urine 0 SEEN /hpf (<or=2+); Red Blood Cells-Urine 0 SEEN /hpf (0-5)
[2021-08-17 04:23] LABS: Color, Urine Yellow (Yellow); Glucose, Dipstick Normal (Normal); Ketone-Dipstick Negative (Negative); Leukocyte Esterase-Dipstick 100 /ul (Negative); Nitrite-Dipstick Negative (Negative); Occult Blood-Urine 10 /ul (Negative); Protein-Dipstick 15 mg/dl (Negative); Specific Gravity, Urine 1.025 (1.002-1.030); Urine Bilirubin Dipstick Negative (Negative); Urine Clarity Clear (Clear); Urine Urobilinogen Normal (Normal)
[2021-08-17 04:29] LABS: Anion Gap 9 (5-15); BUN 18 mg/dL (7-18); BUN/Creat Ratio 25.4 RATIO (10-20); Calcium,Total 9.3 mg/dL (8.5-10.1); Chloride 106 mmol/L (98-107); Creatinine, Serum 0.71 mg/dL (0.55-1.02); EST Glomerular Filtration Rate 106 mL/min (>60); Est Glom Filt Rate - Afr Amer 128 mL/min (>60); Estimated Creatinine Clearance 112.41 ml/min; Glucose 92 mg/dL (74-106); Potassium 3.6 mmol/L (3.5-5.1); Sodium Level 137 mmol/L (136-145)
[2021-08-17 04:31] LABS: Bacteria 1+ /hpf (None Seen); Squamous Epithelial Cells - UA 5-10 SEEN /hpf (5-10); White Blood Cells 5-10 SEEN /hpf (0-5)
[2021-08-17 04:33] LABS: Internal QC Validated? YES +Cl - CLEAR BKGD; Pregnancy, Serum, hCG Quali. NEGATIVE Negative
--- NOTE | 2021-08-17 04:48 | CT_ITS ---
STUDY: CT ABDOMEN AND PELVIS WITHOUT CONTRAST REASON FOR EXAM: Female, 25 years old. LLQ pain -- H/O kidney stones RADIATION DOSAGE (If Supplied By Facility): CTDIvol = ( 24.12 ) mGy, DLP = ( 1410.29 ) mGycm TECHNIQUE: Transaxial images were obtained from the dome of the diaphragm to the symphysis pubis without oral contrast, and without intravenous contrast. Sagittal and coronal images were reconstructed. Individualized dose optimization techniques were used for this CT. COMPARISON: None. FINDINGS: The visualized lung bases are unremarkable. The visualized portions of the heart are within normal limits. Normal liver. Normal gallbladder and extrahepatic biliary system. Normal spleen. Normal pancreas. Normal bilateral adrenal glands. Tiny punctate nonobstructing right nephrolith. Otherwise, unremarkable right kidney. Normal left kidney. Normal visualized stomach. Normal small intestine. Normal colon. The appendix is visualized and appears normal. Normal abdominal aorta. Normal inferior vena cava. Normal retroperitoneum. Normal urinary bladder. Normal abdominal wall. Normal osseous structures. CT/Abdomen/Pelvis without Cont IMPRESSION: Punctate nonobstructing right nephrolithiasis. No evidence of acute obstruction of the kidneys. Unremarkable appendix Electronically Signed: Alexandr Nicolas DO at 5:07 EDT Tel , Service support ,
[2021-08-17] MEDS: Smz/Tmp Ds Tablet 1 TABLET PO (05:34)
[2021-08-17 05:37] VITALS: RESP 16
== END 2021-08-17 05:38 | disposition home or self-care (01) ==
PROVIDERS: Emergency Provider Emergency Medicine; PCP Internal Medicine
DX: R10.32 Left lower quadrant pain (principal); Z87.891 Personal history of nicotine dependence; Z87.442 Personal history of urinary calculi; Z87.440 Personal history of urinary (tract) infections
CPT/HCPCS: 74176; 80048; 81001; 84703; 85025; 96374; 99285; A4216; J2405

== ENCOUNTER → 2021-10-30 | Outpatient (CLI) | payer MEDICAID, SELFPAY ==
[2021-11-04 14:06] LABS: HPV Reflexed? NOT INDICATED
== END | disposition home or self-care (01) ==
PROVIDERS: PCP Internal Medicine; Visit Provider Obstetrics & Gynecology
DX: Z11.3 Encounter for screening for infections with a predominantly sexual mode of transmission (principal); Z12.4 Encounter for screening for malignant neoplasm of cervix
CPT/HCPCS: 88175; G0145

== ENCOUNTER 2021-11-08 12:02 | Outpatient (CLI) | payer MEDICAID, SELFPAY | END 2021-11-08 23:59 | disposition short-term general hospital (02) | LOC: LABSPEC 12:09 | PROVIDERS: PCP Internal Medicine; Visit Provider Obstetrics & Gynecology | DX: R30.0 Dysuria (principal); R31.9 Hematuria, unspecified | CPT/HCPCS: 87086; 87088 ==

== ENCOUNTER 2023-01-22 14:19 | Emergency (ER) | payer MEDICAID, SELFPAY ==
[2023-01-22 14:20] VITALS: BP 149/91; PULSE 91; RESP 14; TEMP 36.1; O2SAT 98; BMI 45.5
--- NOTE | 2023-01-22 14:54 | EDS_ITS ---
HPI <ANNA Triana - Last Filed: 01/22/23 15:21> History of Present Illness Chief Complaint: Itching Narrative Narrative: Patient is a 27-year-old female with history of asthma, kidney stones, allergies who presents to the emergency department for full body itching. She was treated 2 weeks ago for scabies. She has had scabies in the past. She then moved on from this place where she was staying. She states that she has been itching the entire time. She denies any new rash. She states sometimes she needs a steroid shot. She denies any difficulty breathing, denies any fever or chills. She is currently staying with another friend and there is no evidence of any scabies at this house. [facility] <ANNA Triana - Last Filed: 01/22/23 15:21> [facility] Medical History Asthma Nephrolithiasis Oppositional defiant disorder Home Medications vits,calcium no.78-iron fumarate-folic acid 29 mg-1 mg tablet (Prenatabs FA) 1 tab PO DAILY 09/20/18 [History Last Taken 04/06/20 22:00] aspirin 81 mg tablet,delayed release 81 mg PO DAILY prevention of pre-e 01/06/20 [History Last Taken 04/06/20 22:00] labetalol 100 mg tablet 100 mg PO BID Chronic HTN 01/06/20 [History Last Taken 04/08/20 08:00] Vitamin D 2,000 units PO DAILY supplement 03/12/20 [History Last Taken 04/06/20] budesonide 180 mcg/actuation breath activated powder inhaler 1 puff inhalation PRN PRN Asthma 03/12/20 [History Last Taken 03/28/20] ferrous sulfate 325 mg (65 mg iron) tablet 65 mg PO DAILY anemia 03/12/20 [History Last Taken 04/06/20 22:00] Fluoxitine 10 mg PO DAILY ODD 03/15/20 [History Last Taken 04/06/20] promethazine 12.5 mg tablet 12.5 mg PO BID nausea 04/07/20 [History Last Taken 04/07/20] cephalexin 500 mg capsule 500 mg PO BID Check with primary doctor 04/09/20 [History Last Taken 04/08/20 22:00] docusate sodium 100 mg capsule 100 mg PO BID PRN PRN Constipation #60 caps 04/09/20 [Rx Last Taken Unknown] sulfamethoxazole 800 mg-trimethoprim 160 mg tablet (Bactrim DS) 1 tab PO BID #6 tabs 08/17/21 [Rx Last Taken Unknown] hydroxyzine HCl 25 mg tablet 25 mg PO TID PRN itching #20 tabs 01/22/23 [Rx Last Taken Unknown] Allergy/AdvReac Type Severity Reaction Status Date / Time metronidazole [From Flagyl] Allergy Rash Verified 01/22/23 14:23 Surgical History H/O lithotripsy Previous section Social History Smoking Status: Current every day smoker tobacco type: cigarettes ROS <ANNA Triana - Last Filed: 01/22/23 15:21> ROS ED ROS Narrative Constitutional: Negative for fever, chills, weight loss, weakness Eyes: Negative for vision loss, vision change, double vision ENT: Negative for any sore throat, ear pain, congestion Cardiovascular: Negative for any chest pain, tightness, palpitations Respiratory: Negative for any cough, sputum production, hemoptysis, dyspnea, dyspnea on exertion, orthopnea Gastrointestinal: Negative for any abdominal pain, nausea, vomiting, diarrhea, constipation, blood in stool, blood in vomit : Negative for any urinary frequency, dysuria, retention, blood in urine Muscle skeletal: Negative for any muscle joint pain, stiffness, myalgias, arthralgias, neck pain, back pain Neurological: Negative for any headache, syncope, numbness or tingling, dizziness Skin: Negative for any rashes, lumps, abrasions, lacerations. Positive for itching sensation throughout the full body Psychiatric: Negative for any depression, anxiety, stress, suicidal ideation, homicidal ideation Hematologic: Negative for any easy bruising, excessive bruising, easy bleeding Allergies: Negative for any eczema, hives, rash EXAM <ANNA Triana - Last Filed: 01/22/23 15:21> Physical Exam Narrative Exam Narrative: Vital signs reviewed. HEET: Head normocephalic atraumatic, TMs clear bilaterally. Posterior pharynx is clear, moist mucous membranes. Nares clear bilaterally. Neck: Supple with no lymphadenopathy or tenderness. No signs of meningismus, negative jolt sign. Cardiac: Regular rate and rhythm no murmurs gallops or rubs, equal peripheral pulses bilaterally. Respiratory: Lungs clear to auscultation bilaterally. No chest tenderness. Abdomen: Soft, nontender, nondistended. No abdominal bruit or pulsatile masses. No hepatosplenomegaly Extremities: No peripheral edema, no signs of gross trauma or deformity. Active full range of motion of all extremities. Neuro: Cranial nerves II through XII intact, no focal neurological deficits. Skin: Clean dry and intact with no rash, purpura, petechiae, vesicles or pustules. Patient does have some redness to her hands as well as her neck however she has been constantly itching for the multiple days. There is no evidence of any new rash. There is no evidence of any scabies like infection. There is no hives. Backs/flank: No CVA tenderness, no midline spinal tenderness, no deformity. Psych: Normal mood and affect. No SI, HI or acute psychosis. Const Vital Signs: 01/22/23 14:20 Temperature 97.0 F L Temperature Source Temporal Pulse Rate 91 Respiratory Rate 14 Blood Pressure 149/91 H Blood Pressure Mean 110 Pulse Ox 98 Oxygen Delivery Method Room Air Positive well nourished and well developed General Appearance ED: well developed <Dr. Leo Bear DO - Last Filed: 01/22/23 18:40> Physical Exam Const Vital Signs: 01/22/23 14:20 Temperature 97.0 F L Temperature Source Temporal Pulse Rate 91 Respiratory Rate 14 Blood Pressure 149/91 H Blood Pressure Mean 110 Pulse Ox 98 Oxygen Delivery Method Room Air MDM <ANNA Triana - Last Filed: 01/22/23 15:21> MDM Differential Diagnosis Differential Diagnosis: Scabies Why less likely: Negative for any rash to the hands or feet. Differential Diagnosis: Anaphylaxis Treatment and Re-Evaluation :: Patient is in no respiratory distress. Patient appears well, patient appears nontoxic. Vital signs are stable. Patient presents the emergency department for full body itching. She is concerned that she did not receive full treatment for scabies. Patient got treated appropriately greater than 2 weeks ago. She has since then moved apartments. Patient has no rash in between her fingers, she has no hives. Patient is just complaining of full body itching. There is no evidence of any anaphylaxis. Patient states sometimes with this itching she needs a steroid shot. Patient was given a IM dose of Kenalog, she will be given a dose of hydroxyzine here. She will be given a prescription for hydroxyzine. She will also be instructed about cool showers. All questions were answered. She was given strict return precaution. She is happy with the plan of care and is stable for discharge. <Dr. Leo Bear, DO - Last Filed: 01/22/23 18:40> [facility] MDM Narrative Medical decision making narrative: This patient was seen with a PA/PSYCHODRAMATIST Individually assessed they patient including history and physical. I have reviewed everything on the chart that is available and agree with the documentation provided by the PA/PSYCHODRAMATIST including discussion about the assessment, treatment plan, discussion, and return precautions. Patient presents with pruritus. Patient has no evidence of scabies or allergic reaction on examination. She has done permethrin cream 2 weeks ago and feels like it did not work. Patient given Kenalog and hydroxyzine here. Return precautions were discussed. Discharge Plan Triage Chief Complaint: Itching ED Midlevel Provider: Deniz Gregg ED Provider: Leo Bear Dx/Rx/DC Orders Clinical Impression: Itching, Contact dermatitis Instructions: ED Contact Dermatitis Prescriptions: New hydroxyzine HCl 25 mg tablet 25 mg PO TID PRN (Reason: itching) Qty: 20 0RF No Action vit,[id number] [Prenatabs FA] 1 TABLET tablet 1 tab PO DAILY aspirin 81 MG tablet,delayed release (DR/EC) 81 mg PO DAILY labetalol 100 MG tablet 100 mg PO BID ferrous sulfate 325 MG tablet 65 mg PO DAILY Vitamin D 2,000 units PO DAILY budesonide 1 PUFF inhaler 1 puff inhalation PRN PRN (Reason: Asthma) Fluoxitine 10 mg PO DAILY promethazine 12.5 MG tablet 12.5 mg PO BID cephalexin 500 MG capsule 500 mg PO BID docusate sodium 100 MG capsule 100 mg PO BID PRN PRN (Reason: Constipation) Qty: 60 1RF sulfamethoxazole-trimethoprim [Bactrim DS] 800-160 mg tablet 1 tab PO BID Qty: 6 0RF Primary Care Provider: Marya Day Referrals: Marya Day MD [Primary Care Provider] - Activity Restrictions/Additional Instructions: Please take medications as prescribed. Disposition Disposition: Home, Self Care Discharge Date/Time: 01/22/23 15:43
[2023-01-22] MEDS: hydrOXYzine PAM 25 MG Capsule PO (15:27)
[2023-01-22] MEDS: Triamcinolone Acetonide 40 MG/ML Vial IM (15:27)
== END 2023-01-22 15:43 | disposition home or self-care (01) ==
PROVIDERS: Emergency Provider Student in an Organized Health Care Education/Training Program; PCP Internal Medicine; Visit Provider Student in an Organized Health Care Education/Training Program
DX: L25.9 Unspecified contact dermatitis, unspecified cause (principal); F17.210 Nicotine dependence, cigarettes, uncomplicated
CPT/HCPCS: 96372; 99283